=== PATIENT | female | born 1985 | race Caucasian/White ===

== ENCOUNTER 2018-05-06 12:01 | Inpatient (IN) | payer OTHER ==
[2018-05-06 12:12] VITALS: BMI 22.0
--- NOTE | 2018-05-06 13:35 | HP ---
COWS - Scale Resting Pulse: 0= [place] 80 or Below Sweatin=Flushed/Facial Moisture Restless Observation: 1= Difficult to Sit Still Pupil Size: 0= Normal to Room Light Bone or Joint Aches: 2= Severe Diffuse Aches Runny Nose/ Eye Tearin= Runny Nose/Eyes GI Upset > 30mins: 2= Nausea/Diarrhea Tremor Observation: 2= Slight Tremor Visible Yawning Observation: 2= >3x During Session Anxiety or Irritability: 2=Irritable/Anxious Goose Flesh Skin: 3=Piloerection COWS Score: 18 CIWA Score - Admission Criteria OASAS Guidelines: Admission for Medically Managed Detox: Requires at least one of the followin. CIWA greater than 12 2. Seizures within the past 24 hours 3. Delirium tremens within the past 24 hours 4. Hallucinations within the past 24 hours 5. Acute intervention needed for co occurring medical disorder 6. Acute intervention needed for co occurring psychiatric disorder 7. Severe withdrawal that cannot be handled at a lower level of care (continued vomiting, continued diarrhea, abnormal vital signs) requiring intravenous medication and/or fluids 8. Admission ROS [facility] Chief Complaint: I want to stop doing heroin. Allergies/Adverse Reactions: Allergies Allergy/AdvReac Type Severity Reaction Status Date / Time levofloxacin [From Levaquin] Allergy Verified 05/06/18 12:53 fish Allergy Uncoded 05/06/18 12:54 History of Present Illness: pt is a 32yr old female with a history of heroin dependence seeking detox for treatment. Pt had 2yr [id number] years of sobriety and then relapsed due of . Exam Limitations: No Limitations - Ebola screening Have you traveled outside of the country in the last 21 days: No Have you had contact with anyone from an Ebola affected area: No Have you been sick,other than usual withdrawal symptoms: No Do you have a fever: No - Review of Systems Constitutional: Chills, Diaphoresis, Night Sweats, Changes in sleep, Unintentional Wgt. Loss EENT: reports: Nose Congestion Respiratory: reports: No Symptoms reported Cardiac: reports: No Symptoms Reported GI: reports: Diarrhea, Nausea, Poor Appetite, Poor Fluid Intake, Abdominal cramping : reports: No Symptoms Reported Musculoskeletal: reports: Back Pain, Joint Pain, Muscle Pain Integumentary: reports: Flushing, Sweating, Other (abscess to right forearm noted) Neuro: reports: Headache, Tingling, Tremors, Dizziness Endocrine: reports: Excessive Sweating, Flushing, Intolerance to Cold, Intolerance to Heat Hematology: reports: No Symptoms Reported Psychiatric: reports: Judgement Intact, Mood/Affect Appropiate, Orientated x3, Agitated, Anxious Other Systems: Reviewed and Negative Patient History - Patient Medical History Hx Anemia: No Hx Asthma: Yes Hx Chronic Obstructive Pulmonary Disease (COPD): No Hx Cancer: No Hx Cardiac Disorders: No Hx Congestive Heart Failure: No Hx Hypertension: No Hx Hypercholesterolemia: No Hx Pacemaker: No HX Cerebrovascular Accident: No Hx Seizures: No Hx Dementia: No Hx Diabetes: No Hx Gastrointestinal Disorders: No Hx Liver Disease: No Hx Genitourinary Disorders: No Hx Sexually Transmitted Disorders: No Hx Renal Disease (ESRD): No Hx Thyroid Disease: No Hx Human Immunodeficiency Virus (HIV): No (negative) Hx Hepatitis C: Yes (no treatment) Hx Depression: Yes (not on medication ) Hx Suicide Attempt: No (denies) Hx Bipolar Disorder: No Hx Schizophrenia: No - Patient Surgical History Past Surgical History: No Hx Neurologic Surgery: No Hx Cataract Extraction: No Hx Cardiac Surgery: No Hx Lung Surgery: No Hx Breast Surgery: No Hx Breast Biopsy: No Hx Abdominal Surgery: No Hx Appendectomy: No Hx Cholecystectomy: No Hx Genitourinary Surgery: No Hx Section: No Hx Orthopedic Surgery: No Other Surgical History: 4 C section, mrsa 2012, right lung sx,- thoracotomy 2009 Anesthesia Reaction: No - PPD History Previous Implant?: Yes Documented Results: Negative w/o proof Implanted On Prior [facility] Admission?: No PPD to be Administered?: Yes - Reproductive History Patient is a Female of Child Bearing Age (11 -55 yrs old): Yes Patient : No - Smoking Cessation Smoking history: Current every day smoker Have you smoked in the past 12 months: Yes Aproximately how many cigarettes per day: 20 Hx Chewing Tobacco Use: No Initiated information on smoking cessation: Yes 'Breaking Loose' booklet given: 05/06/18 - Substance & Tx. History Hx Alcohol Use: No Hx Substance Use: Yes Substance Use Type: Cocaine, Heroin Hx Substance Use Treatment: Yes (last detox 1yr ago while in retirement) - Substances Abused Heroin Route: Injection Frequency: Daily Amount used: 5 bundles $450. Age of first use: 23 Date of Last Use: 05/05/18 Cocaine Route: Smoking Frequency: Daily Amount used: 1 gram $80. Age of first use: 23 Date of Last Use: 05/05/18 Family Disease History - Family Disease History Family Disease History: CA: Father, Mother Admission Physical Exam [facility] - Vital Signs Vital Signs: Vital Signs - 24 hr 05/06/18 12:10 Temperature 97.1 F L Pulse Rate 64 Respiratory 16 Rate Blood Pressure 78/46 L - Physical General Appearance: Yes: Appropriately Dressed, Moderate Distress, Tremorous, Irritable, Sweating, Anxious HEENTM: Yes: Hearing grossly Normal, Normal Voice, Nasal Congestion, Rhinorrhea Respiratory: Yes: Lungs Clear, Normal Breath Sounds, No Respiratory Distress Neck: Yes: No masses,lesions,Nodules Breast: Yes: Within Normal Limits Cardiology: Yes: Regular Rhythm, Regular Rate, S1, S2 Abdominal: Yes: Normal Bowel Sounds, Non Tender, Soft Genitourinary: Yes: Within Normal Limits Back: Yes: Normal Inspection Musculoskeletal: Yes: full range of Motion, Back pain Extremities: Yes: Normal Capillary Refill, Normal Inspection, Tremors Neurological: Yes: Fully Oriented, Alert, Normal Response Integumentary: Yes: Diaphoresis, Track Benson Lymphatic: Yes: Within Normal Limits - Diagnostic (1) Opioid dependence with withdrawal Current Visit: Yes Status: Chronic (2) Nicotine dependence Current Visit: Yes Status: Chronic Qualifiers: Nicotine product type: cigarettes Substance use status: uncomplicated Qualified Code(s): F17.210 - Nicotine dependence, cigarettes, uncomplicated (3) Abscess of right arm Current Visit: Yes Status: Acute (4) Cocaine dependence Current Visit: Yes Status: Chronic Qualifiers: Substance use status: uncomplicated Qualified Code(s): F14.20 - Cocaine dependence, uncomplicated Cleared for Admission [facility] - Detox or Rehab [facility] Level of Care: Medically Managed Detox Regimen/Protocol: Methadone [facility] Breath Alcohol Content Breath Alcohol Content: 0 Urine Pregancy Test - Result Urine Test Results: Negative- NO Line Present Urine Drug Screen - Results Drug Screen Negative: No Urine Drug Screen Results: PRESTON-Cocaine, OPI-Opiates, FEN-Fentanyl
[2018-05-06] MEDS ORDERED: MAGNESIUM HYDROX 2400MG/30ML ORAL SUSPENSION 30 ML CUP PO PRN (13:42)
[2018-05-06] MEDS ORDERED: ACETAMINOPHEN 325 MG TABLET (FP) PO PRN (13:42)
[2018-05-06] MEDS ORDERED: MAGNESIUM CITRATE 300 ML BOTTLE PO PRN (13:42)
[2018-05-06] MEDS ORDERED: guaiFENesin/D-METHORPHAN HB 10 ML UNIT-DOSE CUPS PO PRN (13:42)
[2018-05-06] MEDS ORDERED: MAG HYDROX/AL HYDROX/SIMETH 30 ML UNIT-DOSE CUP PO PRN (13:42)
[2018-05-06] MEDS ORDERED: P-EPHED 60MG/TRIPROLIDI 2.5MG TABLET PO PRN (13:42)
[2018-05-06] MEDS ORDERED: LOPERAMIDE HCL 2 MG CAPSULE PO PRN (13:42)
[2018-05-06] MEDS ORDERED: MENTHOL/PHENOL 1 EACH UD MM PRN (13:42)
[2018-05-06] MEDS ORDERED: METHADONE HCL 10 MG TABLET (FOR DETOX USE ONLY) PO ONE ×2 (14:30→23:00)
[2018-05-06] MEDS: diazePAM 5 MG TABLET PO PRN (15:08)
--- NOTE | 2018-05-06 17:32 | EKG ---
Test Reason : Blood Pressure : / mmHG Vent. Rate : 054 BPM Atrial Rate : 054 BPM P-R Int : 168 ms QRS Dur : 082 ms QT Int : 444 ms P-R-T Axes : 067 036 019 degrees QTc Int : 421 ms SINUS BRADYCARDIA OTHERWISE NORMAL ECG NO PREVIOUS ECGS AVAILABLE Confirmed by MEGHAN MARCH MD ([id number]) on 05/06/2018 5:31:41 PM Referred By: Confirmed By:MEGHAN MARCH MD
[2018-05-06] MEDS: IBUPROFEN 400 MG TABLET (FP) PO PRN (20:07)
[2018-05-06] MEDS: SULFAMETHOXAZOLE/TRIMETHOPRIM 800MG/160MG D.S. TABLET PO SCH (22:17)
[2018-05-06] MEDS: hydrOXYzine PAMOATE 50 MG CAPSULE (FP) PO PRN (22:17)
[2018-05-06] MEDS: THIAMINE HCL 100 MG TABLET (FP) PO SCH (22:17)
[2018-05-07] MEDS: IBUPROFEN 400 MG TABLET (FP) PO PRN (09:26)
[2018-05-07] MEDS ORDERED: METHADONE HCL 10 MG TABLET (FOR DETOX USE ONLY) PO ONE (10:00)
[2018-05-07] MEDS: diazePAM 5 MG TABLET PO PRN (10:12)
[2018-05-07] MEDS: SULFAMETHOXAZOLE/TRIMETHOPRIM 800MG/160MG D.S. TABLET PO SCH ×2 (10:12→22:30)
[2018-05-07] MEDS: PRENATAL VITAMINS W/ FOLIC ACID TABLET (FP) PO SCH (10:12)
[2018-05-07] MEDS: NICOTINE 21 MG/24 HOURS TOPICAL PATCH TD SCH (10:15)
[2018-05-07 10:18] LABS: HEMATOCRIT 36.3 % (32.4-45.2); HEMOGLOBIN 12.3 GM/dL (10.7-15.3); MCH 28.2 pg (25.7-33.7); MCHC 33.8 g/dl (32.0-36.0); MEAN CELL VOLUME 83.5 fl (80-96); MEAN PLT VOLUME 7.5 fl (7.5-11.1); PLATELET COUNT 235 K/MM3 (134-434); RBC 4.35 M/mm3 (3.60-5.2); RDW 14.7 % (11.6-15.6); WHITE BLOOD COUNT 5.4 K/mm3 (4.0-10.0)
[2018-05-07 10:49] LABS: ALBUMIN 3.1 g/dl (3.4-5.0); ALK PHOS 56 U/L (45-117); ANION GAP 5 MMOL/L (8-16); BILIRUBIN,TOTAL 0.2 mg/dL (0.2-1); BLOOD UREA NITROGEN 20 mg/dL (7-18); CALCIUM 8.8 mg/dL (8.5-10.1); CHLORIDE 106 mmol/L (98-107); CO2 27 mmol/L (21-32); GLUCOSE,RANDOM 98 mg/dL (74-106); POTASSIUM 4.4 mmol/L (3.5-5.1); SGOT/AST 12 U/L (15-37); SGPT/ALT 16 U/L (13-61); SODIUM 139 mmol/L (136-145); TOT PROT 6.8 g/dl (6.4-8.2)
[2018-05-07] MEDS ORDERED: BACLOFEN 10 MG TABLET (FP) PO ONE (11:30)
[2018-05-07] MEDS ORDERED: ALBUTEROL SO4 2.5/IPRATROPIUM 0.5 INH SOL 3 ML VIAL.NEB. NEB ONE (11:32)
[2018-05-07] MEDS ORDERED: metroNIDAZOLE 250 MG TABLET PO ONE (11:39)
[2018-05-07] MEDS ORDERED: LIDOCAINE 5% TOPICAL PATCH TP ONE (11:43)
--- NOTE | 2018-05-07 11:46 | PN ---
BHS COWS - Scale Resting Pulse: 0= [place] 80 or Below Sweatin=Flushed/Facial Moisture Restless Observation: 1= Difficult to Sit Still Pupil Size: 0= Normal to Room Light Bone or Joint Aches: 2= Severe Diffuse Aches Runny Nose/ Eye Tearin= Runny Nose/Eyes GI Upset > 30mins: 1= Stomach Cramp Tremor Observation of Outstretched Hands: 2= Slight Tremor Visible Yawning Observation: 2= >3x During Session Anxiety or Irritability: 2=Irritable/Anxious Goose Flesh Skin: 3=Piloerection COWS Score: 17 BHS Progress Note (SOAP) Subjective: insomnia sweats shakes body aches restless legs I have foul fishy vaginal odor low back pain chest congestion with cough Objective: 05/07/18 11:44 Vital Signs Temperature 97.7 F 05/07/18 09:25 Pulse Rate 69 05/07/18 09:25 Respiratory Rate 18 05/07/18 09:25 Blood Pressure 100/51 L 05/07/18 09:25 O2 Sat by Pulse Oximetry (%) Laboratory Tests 05/07/18 05/07/18 07:00 07:00 WBC 5.4 RBC 4.35 Hgb 12.3 Hct 36.3 MCV 83.5 MCH 28.2 MCHC 33.8 RDW 14.7 Plt Count 235 MPV 7.5 Sodium 139 Potassium 4.4 Chloride 106 Carbon Dioxide 27 Anion Gap 5 L BUN 20 H Creatinine 1.0 Creat Clearance w eGFR > 60 Random Glucose 98 Calcium 8.8 Total Bilirubin 0.2 AST 12 L ALT 16 Alkaline Phosphatase 56 Total Protein 6.8 Albumin 3.1 L aaox3 ambulating no acute distress Assessment: 05/07/18 11:44 withdrawal sx Plan: continue detox increase fluids lidocaine patch motrin/tylenol prn baclofen tid duoneb prn flagyl 500mg bid x 7 days for BV
[2018-05-07] MEDS: BACITRACIN 0.9 GM PACKET TP SCH ×2 (12:19→22:30)
[2018-05-07] MEDS: BACLOFEN 10 MG TABLET (FP) PO SCH ×2 (15:11→22:30)
[2018-05-07] MEDS: THIAMINE HCL 100 MG TABLET (FP) PO SCH (22:30)
[2018-05-07] MEDS: metroNIDAZOLE 250 MG TABLET PO SCH (22:30)
[2018-05-07] MEDS: MELATONIN 5 MG TABLETS PO PRN (22:31)
[2018-05-07] MEDS: LIDOCAINE PATCH REMOVAL MC SCH (22:31)
[2018-05-07] MEDS: NICOTINE POLACRILEX 4 MG GUM BUC PRN (22:35)
[2018-05-08] MEDS: BACLOFEN 10 MG TABLET (FP) PO SCH ×3 (05:49→22:20)
[2018-05-08] MEDS: IBUPROFEN 400 MG TABLET (FP) PO PRN ×2 (05:49→19:07)
[2018-05-08] MEDS ORDERED: METHADONE HCL 5 MG TABLET (FOR DETOX USE ONLY) PO ONE (10:00)
[2018-05-08] MEDS: BACITRACIN 0.9 GM PACKET TP SCH ×2 (11:01→22:20)
[2018-05-08] MEDS: metroNIDAZOLE 250 MG TABLET PO SCH ×2 (11:02→22:20)
[2018-05-08] MEDS: PRENATAL VITAMINS W/ FOLIC ACID TABLET (FP) PO SCH (11:02)
[2018-05-08] MEDS: LIDOCAINE 5% TOPICAL PATCH TP SCH (11:03)
[2018-05-08] MEDS: SULFAMETHOXAZOLE/TRIMETHOPRIM 800MG/160MG D.S. TABLET PO SCH ×2 (11:05→22:20)
[2018-05-08] MEDS: NICOTINE 21 MG/24 HOURS TOPICAL PATCH TD SCH (11:06)
[2018-05-08] MEDS: diazePAM 5 MG TABLET PO PRN ×2 (11:07→22:21)
--- NOTE | 2018-05-08 11:22 | PN ---
BHS COWS - Scale Resting Pulse: 0= [place] 80 or Below Sweatin=Flushed/Facial Moisture Restless Observation: 1= Difficult to Sit Still Pupil Size: 0= Normal to Room Light Bone or Joint Aches: 2= Severe Diffuse Aches Runny Nose/ Eye Tearin= Runny Nose/Eyes GI Upset > 30mins: 0= None Tremor Observation of Outstretched Hands: 2= Slight Tremor Visible Yawning Observation: 2= >3x During Session Anxiety or Irritability: 2=Irritable/Anxious Goose Flesh Skin: 0=Smooth Skin COWS Score: 13 BHS Progress Note (SOAP) Subjective: chest congestion sweats body aches interrupted sleep Objective: 05/08/18 11:21 Vital Signs Temperature 97.5 F L 05/08/18 09:40 Pulse Rate 78 05/08/18 09:40 Respiratory Rate 16 05/08/18 09:40 Blood Pressure 106/63 05/08/18 09:40 O2 Sat by Pulse Oximetry (%) Laboratory Tests 05/07/18 05/07/18 05/07/18 07:00 07:00 07:00 WBC 5.4 RBC 4.35 Hgb 12.3 Hct 36.3 MCV 83.5 MCH 28.2 MCHC 33.8 RDW 14.7 Plt Count 235 MPV 7.5 Sodium 139 Potassium 4.4 Chloride 106 Carbon Dioxide 27 Anion Gap 5 L BUN 20 H Creatinine 1.0 Creat Clearance w eGFR > 60 Random Glucose 98 Calcium 8.8 Total Bilirubin 0.2 AST 12 L ALT 16 Alkaline Phosphatase 56 Total Protein 6.8 Albumin 3.1 L HIV 1&2 Antibody Screen Negative HIV P24 Antigen Negative aaox3 ambulating no acute distress chest x-ray ordered r/o pna Assessment: 05/08/18 11:22 withdrawal sx Plan: continue detox increase fluids f/u chest x-ray result
[2018-05-08] MEDS: hydrOXYzine PAMOATE 50 MG CAPSULE (FP) PO PRN ×2 (13:22→19:07)
[2018-05-08] MEDS: ALBUTEROL SO4 8 GM HFA INHALER IH PRN (15:35)
[2018-05-08] MEDS: ALBUTEROL SO4 2.5/IPRATROPIUM 0.5 INH SOL 3 ML VIAL.NEB. NEB PRN (20:56)
[2018-05-08] MEDS: THIAMINE HCL 100 MG TABLET (FP) PO SCH (22:21)
[2018-05-08] MEDS: LIDOCAINE PATCH REMOVAL MC SCH (22:23)
[2018-05-08] MEDS: NICOTINE POLACRILEX 4 MG GUM BUC PRN (22:23)
[2018-05-09] MEDS: BACLOFEN 10 MG TABLET (FP) PO SCH ×3 (06:08→23:12)
[2018-05-09] MEDS: diazePAM 5 MG TABLET PO PRN ×2 (06:09→10:29)
[2018-05-09] MEDS: IBUPROFEN 400 MG TABLET (FP) PO PRN ×2 (06:10→12:57)
[2018-05-09] MEDS: NICOTINE POLACRILEX 4 MG GUM BUC PRN ×2 (06:14→10:36)
[2018-05-09] MEDS: ALBUTEROL SO4 8 GM HFA INHALER IH PRN (06:14)
[2018-05-09] MEDS ORDERED: METHADONE HCL 5 MG TABLET (FOR DETOX USE ONLY) PO ONE (10:00)
[2018-05-09] MEDS: BACITRACIN 0.9 GM PACKET TP SCH ×2 (10:29→23:11)
[2018-05-09] MEDS: SULFAMETHOXAZOLE/TRIMETHOPRIM 800MG/160MG D.S. TABLET PO SCH ×2 (10:29→23:12)
[2018-05-09] MEDS: PRENATAL VITAMINS W/ FOLIC ACID TABLET (FP) PO SCH (10:29)
[2018-05-09] MEDS: metroNIDAZOLE 250 MG TABLET PO SCH ×2 (10:29→23:12)
[2018-05-09] MEDS: BUDESONIDE/FORMETEROL FUMARATE 80/4.5 mcg INHALER IH SCH ×2 (10:30→23:12)
[2018-05-09] MEDS: NICOTINE 21 MG/24 HOURS TOPICAL PATCH TD SCH (10:31)
[2018-05-09] MEDS: LIDOCAINE 5% TOPICAL PATCH TP SCH (10:31)
[2018-05-09] MEDS ORDERED: LIDOCAINE VISCOUS 2% ORAL/TOP 20 ML UNIT-DOSE CUP MM PRN (11:29)
--- NOTE | 2018-05-09 12:35 | PN ---
BHS Progress Note (SOAP) Subjective: tooth ache sweats shortness of breath at times interrupted sleep Objective: 05/09/18 12:32 Vital Signs Temperature 98.2 F 05/09/18 10:30 Pulse Rate 92 H 05/09/18 10:30 Respiratory Rate 18 05/09/18 10:30 Blood Pressure 108/66 05/09/18 10:30 O2 Sat by Pulse Oximetry (%) Laboratory Tests 05/07/18 05/07/18 05/07/18 07:00 07:00 07:00 WBC 5.4 RBC 4.35 Hgb 12.3 Hct 36.3 MCV 83.5 MCH 28.2 MCHC 33.8 RDW 14.7 Plt Count 235 MPV 7.5 Sodium 139 Potassium 4.4 Chloride 106 Carbon Dioxide 27 Anion Gap 5 L BUN 20 H Creatinine 1.0 Creat Clearance w eGFR > 60 Random Glucose 98 Calcium 8.8 Total Bilirubin 0.2 AST 12 L ALT 16 Alkaline Phosphatase 56 Total Protein 6.8 Albumin 3.1 L RPR Titer HIV 1&2 Antibody Screen Negative HIV P24 Antigen Negative 05/07/18 07:00 WBC RBC Hgb Hct MCV MCH MCHC RDW Plt Count MPV Sodium Potassium Chloride Carbon Dioxide Anion Gap BUN Creatinine Creat Clearance w eGFR Random Glucose Calcium Total Bilirubin AST ALT Alkaline Phosphatase Total Protein Albumin RPR Titer Nonreactive HIV 1&2 Antibody Screen HIV P24 Antigen aaox3 ambulating no acute distress Assessment: 05/09/18 12:34 withdrawals sx Plan: continue detox increase fluids lidocaine s/s
[2018-05-09] MEDS: ALBUTEROL SO4 2.5/IPRATROPIUM 0.5 INH SOL 3 ML VIAL.NEB. NEB PRN ×2 (13:33→18:04)
[2018-05-09] MEDS: hydrOXYzine PAMOATE 50 MG CAPSULE (FP) PO PRN (18:14)
[2018-05-09] MEDS: LIDOCAINE PATCH REMOVAL MC SCH (23:12)
[2018-05-09] MEDS: THIAMINE HCL 100 MG TABLET (FP) PO SCH (23:13)
[2018-05-09] MEDS: MELATONIN 5 MG TABLETS PO PRN (23:37)
[2018-05-10] MEDS: IBUPROFEN 400 MG TABLET (FP) PO PRN ×3 (02:56→20:21)
[2018-05-10] MEDS: hydrOXYzine PAMOATE 50 MG CAPSULE (FP) PO PRN (03:08)
[2018-05-10] MEDS: BACLOFEN 10 MG TABLET (FP) PO SCH ×3 (07:34→22:29)
[2018-05-10] MEDS ORDERED: BENZOCAINE 20 % GEL TUBE MM PRN (09:05)
[2018-05-10] MEDS ORDERED: METHADONE HCL 10 MG TABLET (FOR DETOX USE ONLY) PO ONE (10:00)
[2018-05-10] MEDS: metroNIDAZOLE 250 MG TABLET PO SCH ×2 (10:27→22:29)
[2018-05-10] MEDS: PRENATAL VITAMINS W/ FOLIC ACID TABLET (FP) PO SCH (10:27)
[2018-05-10] MEDS: BACITRACIN 0.9 GM PACKET TP SCH ×2 (10:27→22:28)
[2018-05-10] MEDS: SULFAMETHOXAZOLE/TRIMETHOPRIM 800MG/160MG D.S. TABLET PO SCH ×2 (10:27→22:28)
[2018-05-10] MEDS: NICOTINE 21 MG/24 HOURS TOPICAL PATCH TD SCH (10:28)
[2018-05-10] MEDS: LIDOCAINE 5% TOPICAL PATCH TP SCH (10:28)
[2018-05-10] MEDS: BUDESONIDE/FORMETEROL FUMARATE 80/4.5 mcg INHALER IH SCH ×2 (10:28→22:30)
[2018-05-10] MEDS: NICOTINE POLACRILEX 4 MG GUM BUC PRN ×2 (10:32→22:33)
[2018-05-10] MEDS: FLUTICASONE PROP 0.05% 16 GM NASAL SPRAY NS SCH (11:00)
[2018-05-10] MEDS: ALBUTEROL SO4 2.5/IPRATROPIUM 0.5 INH SOL 3 ML VIAL.NEB. NEB PRN ×2 (11:20→18:12)
--- NOTE | 2018-05-10 12:13 | PN ---
S Progress Note (SOAP) Subjective: toothache feeling better sweats anxiety interrupted sleep Objective: 05/10/18 12:11 Vital Signs Temperature 97.9 F 05/10/18 09:27 Pulse Rate 69 05/10/18 09:27 Respiratory Rate 18 05/10/18 09:27 Blood Pressure 116/70 05/10/18 09:27 O2 Sat by Pulse Oximetry (%) aaox3 ambulating no acute distress Assessment: 05/10/18 12:12 mild withdrawals Plan: valium 5mg x one day ordered trazadone 50mg qhs anbesol increase fluids d/c in am
[2018-05-10] MEDS: diazePAM 5 MG TABLET PO PRN ×2 (13:48→22:31)
[2018-05-10] MEDS ORDERED: LIDOCAINE VISCOUS 2% ORAL/TOP 20 ML UNIT-DOSE CUP MM PRN (15:30)
[2018-05-10] MEDS: ALBUTEROL SO4 8 GM HFA INHALER IH PRN (17:13)
[2018-05-10] MEDS ORDERED: traZODone HCL 50 MG TABLET (FP) PO SCH (22:00)
[2018-05-10] MEDS: LIDOCAINE PATCH REMOVAL MC SCH (22:29)
[2018-05-10] MEDS: THIAMINE HCL 100 MG TABLET (FP) PO SCH (22:31)
[2018-05-11] MEDS: BACLOFEN 10 MG TABLET (FP) PO SCH (05:32)
[2018-05-11] MEDS: IBUPROFEN 400 MG TABLET (FP) PO PRN ×2 (05:33→10:41)
[2018-05-11] MEDS ORDERED: METHADONE HCL 5 MG TABLET (FOR DETOX USE ONLY) PO ONE (06:00)
[2018-05-11 10:34] VITALS: BP 106/64; PULSE 82; TEMP 97.9
[2018-05-11] MEDS: NICOTINE 21 MG/24 HOURS TOPICAL PATCH TD SCH (10:40)
[2018-05-11] MEDS: metroNIDAZOLE 250 MG TABLET PO SCH (10:41)
[2018-05-11] MEDS: LIDOCAINE 5% TOPICAL PATCH TP SCH (10:42)
[2018-05-11] MEDS: PRENATAL VITAMINS W/ FOLIC ACID TABLET (FP) PO SCH (10:42)
[2018-05-11] MEDS: SULFAMETHOXAZOLE/TRIMETHOPRIM 800MG/160MG D.S. TABLET PO SCH (10:42)
[2018-05-11] MEDS: BUDESONIDE/FORMETEROL FUMARATE 80/4.5 mcg INHALER IH SCH (10:42)
[2018-05-11] MEDS: BACITRACIN 0.9 GM PACKET TP SCH (10:42)
[2018-05-11] MEDS: FLUTICASONE PROP 0.05% 16 GM NASAL SPRAY NS SCH (11:36)
--- NOTE | 2018-05-11 17:31 | PN ---
S Progress Note (SOAP) Subjective: no complaints offered Objective: 05/11/18 17:29 A & O x 3 ambulating comfortably on unit Vital Signs Temperature 97.9 F 05/11/18 10:34 Pulse Rate 82 05/11/18 10:34 Respiratory Rate 16 05/11/18 10:34 Blood Pressure 106/64 05/11/18 10:34 O2 Sat by Pulse Oximetry (%) Assessment: 05/11/18 17:30 Detox successfully completed Plan: for d/c
--- NOTE | 2018-05-11 17:32 | DS ---
[facility] Detox Discharge Summary Admission Date: 05/06/18 Discharge Date: 05/11/18 - History Additional Comments: pt d/c s/p successful completion of detox Pt to do aftercare at [facility] Rehab - Physical Exam Results Vital Signs: Vital Signs Temperature 97.9 F 05/11/18 10:34 Pulse Rate 82 05/11/18 10:34 Respiratory Rate 16 05/11/18 10:34 Blood Pressure 106/64 05/11/18 10:34 O2 Sat by Pulse Oximetry (%) Pertinent Admission Physical Exam Findings: withdrawal sx - Treatment Hospital Course: Detox Protocol Followed, Detoxed Safely, Responded well, Discharged Condition Good, Rehab Referral Accepted Patient has Accepted a Rehab Referral to: [facility] rehab - Medication Discharge Medications: Ambulatory Orders Albuterol 2.5/Ipratropium 0.5 [Duoneb -] 1 neb NEB Q4H PRN 05/11/18 Albuterol Sulfate Inhaler - [Ventolin Hfa Inhaler -] 1 - 2 inh PO Q4H PRN Bacitracin - [Bacitracin Topical Ointment -] 1 applic TP BID 05/11/18 Baclofen 10 mg PO TID 05/11/18 Budesonide/Formeterol Fumarate [SYMBICORT 80/4.5mcg -] 2 inh PO BID 05/11/18 Fluticasone Prop 0.05% Nasal [Flonase -] 2 spray NS DAILY 05/11/18 Ibuprofen [Motrin -] 800 mg PO TID PRN 05/11/18 Lidocaine 1 each TP DAILY 05/11/18 Lidocaine 2% Viscous Oral/Top [Xylocaine 2% Viscous] 15 ml MM Q6H PRN 05/11/18 Sulfamethoxazole/Trimethoprim [Bactrim Ds -] 1 tab PO BID 05/11/18 metroNIDAZOLE [Flagyl -] 500 mg PO BID 05/11/18 traZODone HCL [Desyrel -] 50 mg PO HS 05/11/18 - AMA Did Patient Leave Against Medical Advice: No
== END 2018-05-11 11:35 | disposition other institution (70) | DRG 773 ==
LOC: YASAS 12:01 → Y6N 14:06
PROVIDERS: ADMIT Neuromusculoskeletal Medicine & OMM; ATTEND Neuromusculoskeletal Medicine & OMM
PROC: HZ2ZZZZ Detoxification Services for Substance Abuse Treatment (ICD-10-PCS; principal; 2018-05-06)
DX: F11.23 Opioid dependence with withdrawal (principal); F14.20 Cocaine dependence, uncomplicated; F17.210 Nicotine dependence, cigarettes, uncomplicated; F32.9 Major depressive disorder, single episode, unspecified; L02.413 Cutaneous abscess of right upper limb; B18.2 Chronic viral hepatitis C; K08.89 Other specified disorders of teeth and supporting structures; Z88.1 Allergy status to other antibiotic agents; Z91.013 Allergy to seafood
CPT/HCPCS: 36415; 71046-TC-FY; 80053; 85027; 86593; 87389; 93005; 93010; 94640; J0475

== ENCOUNTER 2018-05-11 11:44 | Inpatient (IN) | payer OTHER ==
[2018-05-11 12:13] VITALS: BMI 23.7
[2018-05-11] MEDS ORDERED: MAGNESIUM HYDROX 2400MG/30ML ORAL SUSPENSION 30 ML CUP PO PRN (14:47)
[2018-05-11] MEDS ORDERED: IBUPROFEN 400 MG TABLET (FP) PO PRN (14:47)
[2018-05-11] MEDS ORDERED: MENTHOL/PHENOL 1 EACH UD MM PRN (14:47)
[2018-05-11] MEDS ORDERED: guaiFENesin/D-METHORPHAN HB 10 ML UNIT-DOSE CUPS PO PRN (14:47)
[2018-05-11] MEDS ORDERED: LOPERAMIDE HCL 2 MG CAPSULE PO PRN (14:47)
[2018-05-11] MEDS ORDERED: ACETAMINOPHEN 325 MG TABLET (FP) PO PRN (14:47)
[2018-05-11] MEDS ORDERED: MAG HYDROX/AL HYDROX/SIMETH 30 ML UNIT-DOSE CUP PO PRN (14:47)
[2018-05-11] MEDS ORDERED: MAGNESIUM CITRATE 300 ML BOTTLE PO PRN (14:47)
[2018-05-11] MEDS ORDERED: P-EPHED 60MG/TRIPROLIDI 2.5MG TABLET PO PRN (14:47)
[2018-05-11] MEDS ORDERED: NICOTINE POLACRILEX 4 MG GUM BUC PRN (14:47)
--- NOTE | 2018-05-11 14:47 | HP ---
[facility] Rehab Assess/Revision - Admission History Admitted to Rehab from: [facility] - Vital signs Vital Signs: Vital Signs Period Temp Pulse Resp BP Sys/[place] Pulse Ox Last 24 Hr 97.9 F-97.9 F 81-81 18-18 98-98/61-61 - Findings Detox History & Physical reviewed: Yes Concur with findings: Yes Inpatient Rehab Admission - Rehab Decision to Admit Inpatient rehab admission?: Yes - Initial Determination Are CD services needed?: Yes Free of communicable disease: Yes Not in need of hospitalization: Yes - Rehab Admission Criteria Previous failed treatment: Yes Poor recovery environment: Yes Comorbidities: Yes Lacks judgement: No Patient is meeting Inpatient Rehab admission criteria:: Yes (pt completed detox and is now transferred to rehab)
[2018-05-11] MEDS ORDERED: ALBUTEROL SO4 8 GM HFA INHALER IH PRN (14:48)
[2018-05-11] MEDS ORDERED: LIDOCAINE VISCOUS 2% ORAL/TOP 100 ML BOTTLE MM PRN (14:55)
[2018-05-11] MEDS ORDERED: LIDOCAINE VISCOUS 2% ORAL/TOP 20 ML UNIT-DOSE CUP MM PRN (15:20)
[2018-05-11] MEDS: NICOTINE 21 MG/24 HOURS TOPICAL PATCH TD SCH (15:49)
[2018-05-11] MEDS: LIDOCAINE 5% TOPICAL PATCH TP SCH (15:49)
[2018-05-11] MEDS: ALBUTEROL SO4 2.5/IPRATROPIUM 0.5 INH SOL 3 ML VIAL.NEB. NEB PRN (18:27)
[2018-05-11] MEDS: BUDESONIDE/FORMETEROL FUMARATE 80/4.5 mcg INHALER IH SCH (21:03)
[2018-05-11] MEDS: metroNIDAZOLE 250 MG TABLET PO SCH (21:04)
[2018-05-11] MEDS: SULFAMETHOXAZOLE/TRIMETHOPRIM 800MG/160MG D.S. TABLET PO SCH (21:04)
[2018-05-11] MEDS: THIAMINE HCL 100 MG TABLET (FP) PO SCH (21:04)
[2018-05-11] MEDS: traZODone HCL 50 MG TABLET (FP) PO SCH (21:04)
[2018-05-11] MEDS: BACLOFEN 10 MG TABLET (FP) PO SCH (21:04)
[2018-05-11] MEDS: BACITRACIN 0.9 GM PACKET TP SCH (21:05)
[2018-05-11] MEDS: hydrOXYzine PAMOATE 50 MG CAPSULE (FP) PO PRN (21:06)
[2018-05-11] MEDS ORDERED: PATIENT'S OWN MEDICATION (NON-FORMULARY) (Baclofen [Baclofen] 10 MG) PO SCH (22:00)
[2018-05-11] MEDS ORDERED: MELATONIN 5 MG TABLETS PO PRN (22:00)
[2018-05-11] MEDS ORDERED: PATIENT'S OWN MEDICATION (NON-FORMULARY) (Metronidazole [Flagyl -] 500 MG) PO SCH (22:00)
[2018-05-12] MEDS ORDERED: PT OWN MED DRAWER 7, Y5N ONE ×4 (03:38→21:47)
[2018-05-12] MEDS: BACLOFEN 10 MG TABLET (FP) PO SCH ×3 (07:37→21:24)
[2018-05-12] MEDS: IBUPROFEN 400 MG TABLET (FP) PO PRN ×2 (09:50→21:24)
[2018-05-12] MEDS: PRENATAL VITAMINS W/ FOLIC ACID TABLET (FP) PO SCH (09:51)
[2018-05-12] MEDS: BUDESONIDE/FORMETEROL FUMARATE 80/4.5 mcg INHALER IH SCH ×2 (09:51→21:32)
[2018-05-12] MEDS: metroNIDAZOLE 250 MG TABLET PO SCH ×2 (09:51→21:22)
[2018-05-12] MEDS: BACITRACIN 0.9 GM PACKET TP SCH ×2 (09:51→21:32)
[2018-05-12] MEDS: SULFAMETHOXAZOLE/TRIMETHOPRIM 800MG/160MG D.S. TABLET PO SCH ×2 (09:51→21:22)
[2018-05-12] MEDS: LIDOCAINE 5% TOPICAL PATCH TP SCH (09:52)
[2018-05-12] MEDS: FLUTICASONE PROP 0.05% 16 GM NASAL SPRAY NS SCH (09:52)
[2018-05-12] MEDS: NICOTINE 21 MG/24 HOURS TOPICAL PATCH TD SCH (09:52)
[2018-05-12] MEDS: ALBUTEROL SO4 2.5/IPRATROPIUM 0.5 INH SOL 3 ML VIAL.NEB. NEB PRN (13:40)
[2018-05-12] MEDS: hydrOXYzine PAMOATE 50 MG CAPSULE (FP) PO PRN (21:22)
[2018-05-12] MEDS: THIAMINE HCL 100 MG TABLET (FP) PO SCH (21:23)
[2018-05-12] MEDS: traZODone HCL 50 MG TABLET (FP) PO SCH (21:23)
[2018-05-13] MEDS ORDERED: PT OWN MED DRAWER 7, Y5N ONE ×3 (03:13→21:12)
[2018-05-13] MEDS: BACLOFEN 10 MG TABLET (FP) PO SCH ×3 (07:50→21:17)
[2018-05-13 07:56] VITALS: TEMP 97.3
[2018-05-13] MEDS: IBUPROFEN 400 MG TABLET (FP) PO PRN ×2 (09:40→21:14)
[2018-05-13] MEDS: PRENATAL VITAMINS W/ FOLIC ACID TABLET (FP) PO SCH (09:40)
[2018-05-13] MEDS: metroNIDAZOLE 250 MG TABLET PO SCH ×2 (09:40→21:10)
[2018-05-13] MEDS: hydrOXYzine PAMOATE 50 MG CAPSULE (FP) PO PRN ×2 (09:40→14:02)
[2018-05-13] MEDS: LIDOCAINE 5% TOPICAL PATCH TP SCH (09:41)
[2018-05-13] MEDS: FLUTICASONE PROP 0.05% 16 GM NASAL SPRAY NS SCH (09:41)
[2018-05-13] MEDS: NICOTINE 21 MG/24 HOURS TOPICAL PATCH TD SCH (09:41)
[2018-05-13] MEDS: BUDESONIDE/FORMETEROL FUMARATE 80/4.5 mcg INHALER IH SCH ×2 (09:41→21:15)
[2018-05-13] MEDS: SULFAMETHOXAZOLE/TRIMETHOPRIM 800MG/160MG D.S. TABLET PO SCH ×2 (09:41→21:10)
[2018-05-13] MEDS: BACITRACIN 0.9 GM PACKET TP SCH ×2 (10:50→21:10)
[2018-05-13] MEDS: ALBUTEROL SO4 2.5/IPRATROPIUM 0.5 INH SOL 3 ML VIAL.NEB. NEB PRN ×2 (12:35→18:03)
--- NOTE | 2018-05-13 16:25 | PN ---
S Progress Note Note: PATIENT REQUESTED TO BE SEEN BY PSYCH DUE TO SADNESS AND DEPRESSED MOOD ANNIVERSARY OF 'S IS APPROACHING. NO SI/HI REPORTED. PSYCH CONSULT ORDERED.
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
[2018-05-13] MEDS: ESCITALOPRAM OXALATE 20 MG TABLET (FP) PO SCH (18:02)
[2018-05-13] MEDS: traZODone HCL 50 MG TABLET (FP) PO SCH (21:10)
[2018-05-13] MEDS: THIAMINE HCL 100 MG TABLET (FP) PO SCH (21:10)
[2018-05-13] MEDS: GABAPENTIN 300 MG CAPSULE (FP) PO SCH (21:13)
[2018-05-13] MEDS: MIRTAZAPINE 15 MG TABLET (FP) PO SCH (21:14)
[2018-05-13] MEDS: PRAZOSIN HCL 1 MG CAPSULE PO SCH (21:17)
[2018-05-14] MEDS ORDERED: PT OWN MED DRAWER 7, Y5N ONE ×4 (05:58→13:39)
[2018-05-14] MEDS: BACLOFEN 10 MG TABLET (FP) PO SCH ×3 (06:54→21:30)
[2018-05-14] MEDS: IBUPROFEN 400 MG TABLET (FP) PO PRN ×2 (06:56→21:30)
[2018-05-14 07:10] VITALS: BP 96/63; PULSE 73
[2018-05-14] MEDS: SULFAMETHOXAZOLE/TRIMETHOPRIM 800MG/160MG D.S. TABLET PO SCH ×2 (10:14→21:29)
[2018-05-14] MEDS: FLUTICASONE PROP 0.05% 16 GM NASAL SPRAY NS SCH (10:14)
[2018-05-14] MEDS: BACITRACIN 0.9 GM PACKET TP SCH ×2 (10:14→21:29)
[2018-05-14] MEDS: metroNIDAZOLE 250 MG TABLET PO SCH ×2 (10:14→21:30)
[2018-05-14] MEDS: LIDOCAINE 5% TOPICAL PATCH TP SCH (10:15)
[2018-05-14] MEDS: GABAPENTIN 300 MG CAPSULE (FP) PO SCH ×2 (10:15→21:30)
[2018-05-14] MEDS: ESCITALOPRAM OXALATE 20 MG TABLET (FP) PO SCH (10:15)
[2018-05-14] MEDS: NICOTINE 21 MG/24 HOURS TOPICAL PATCH TD SCH (10:16)
[2018-05-14] MEDS: PRENATAL VITAMINS W/ FOLIC ACID TABLET (FP) PO SCH (10:16)
[2018-05-14] MEDS: BUDESONIDE/FORMETEROL FUMARATE 80/4.5 mcg INHALER IH SCH ×2 (10:16→21:31)
[2018-05-14] MEDS: hydrOXYzine PAMOATE 50 MG CAPSULE (FP) PO PRN ×3 (10:17→21:33)
[2018-05-14] MEDS: MIRTAZAPINE 15 MG TABLET (FP) PO SCH (21:30)
[2018-05-14] MEDS: PRAZOSIN HCL 1 MG CAPSULE PO SCH (21:31)
[2018-05-14] MEDS: traZODone HCL 50 MG TABLET (FP) PO SCH (21:32)
[2018-05-14] MEDS: THIAMINE HCL 100 MG TABLET (FP) PO SCH (21:35)
[2018-05-15] MEDS: BACLOFEN 10 MG TABLET (FP) PO SCH ×2 (07:00→14:02)
[2018-05-15] MEDS: NICOTINE 21 MG/24 HOURS TOPICAL PATCH TD SCH (09:39)
[2018-05-15] MEDS: LIDOCAINE 5% TOPICAL PATCH TP SCH (09:39)
[2018-05-15] MEDS: GABAPENTIN 300 MG CAPSULE (FP) PO SCH (09:39)
[2018-05-15] MEDS: BACITRACIN 0.9 GM PACKET TP SCH (09:39)
[2018-05-15] MEDS: SULFAMETHOXAZOLE/TRIMETHOPRIM 800MG/160MG D.S. TABLET PO SCH (09:40)
[2018-05-15] MEDS: PRENATAL VITAMINS W/ FOLIC ACID TABLET (FP) PO SCH (09:40)
[2018-05-15] MEDS: metroNIDAZOLE 250 MG TABLET PO SCH (09:40)
[2018-05-15] MEDS: ESCITALOPRAM OXALATE 20 MG TABLET (FP) PO SCH (09:40)
[2018-05-15] MEDS: hydrOXYzine PAMOATE 50 MG CAPSULE (FP) PO PRN ×2 (09:40→14:03)
[2018-05-15] MEDS: BUDESONIDE/FORMETEROL FUMARATE 80/4.5 mcg INHALER IH SCH (09:41)
[2018-05-15] MEDS: IBUPROFEN 400 MG TABLET (FP) PO PRN ×2 (09:41→16:36)
[2018-05-15] MEDS: FLUTICASONE PROP 0.05% 16 GM NASAL SPRAY NS SCH (09:41)
[2018-05-15] MEDS: ALBUTEROL SO4 2.5/IPRATROPIUM 0.5 INH SOL 3 ML VIAL.NEB. NEB PRN (14:04)
--- NOTE | 2018-05-15 20:31 | PN ---
BHS Progress Note Note: Vital Signs Temperature 97.3 F L 05/14/18 07:09 Pulse Rate 73 05/14/18 07:09 Respiratory Rate 18 05/15/18 06:53 Blood Pressure 96/63 05/14/18 07:09 O2 Sat by Pulse Oximetry (%) Patient left AMA.
[2018-05-15] MEDS ORDERED: PT OWN MED DRAWER 7, Y5N ONE ×2 (21:18→23:19)
== END 2018-05-15 22:10 | disposition left against medical advice (07) | DRG 770 ==
LOC: YASAS 11:44 → Y3E 11:45
PROVIDERS: ADMIT Neuromusculoskeletal Medicine & OMM; ATTEND Neuromusculoskeletal Medicine & OMM
PROC: HZ42ZZZ Group Counseling for Substance Abuse Treatment, Cognitive-Behavioral (ICD-10-PCS; principal; 2018-05-11)
DX: F11.23 Opioid dependence with withdrawal (principal); F14.20 Cocaine dependence, uncomplicated; F17.210 Nicotine dependence, cigarettes, uncomplicated; F43.10 Post-traumatic stress disorder, unspecified; J45.909 Unspecified asthma, uncomplicated
CPT/HCPCS: 94640; J0475

== ENCOUNTER 2018-06-24 08:28 | Inpatient (IN) | payer OTHER ==
[2018-06-24 08:42] VITALS: BMI 21.1
--- NOTE | 2018-06-24 08:52 | HP ---
COWS - Scale Resting Pulse: 0= [place] 80 or Below Sweatin= Chills/Flushing Restless Observation: 3= Extraneous Movement Pupil Size: 1= Pupils >than Normal Bone or Joint Aches: 2= Severe Diffuse Aches Runny Nose/ Eye Tearin= Runny Nose/Eyes GI Upset > 30mins: 3= Vomiting/Diarrhea Tremor Observation: 2= Slight Tremor Visible Yawning Observation: 2= >3x During Session Anxiety or Irritability: 2=Irritable/Anxious Goose Flesh Skin: 0=Smooth Skin COWS Score: 18 CIWA Score - Admission Criteria OASAS Guidelines: Admission for Medically Managed Detox: Requires at least one of the followin. CIWA greater than 12 2. Seizures within the past 24 hours 3. Delirium tremens within the past 24 hours 4. Hallucinations within the past 24 hours 5. Acute intervention needed for co occurring medical disorder 6. Acute intervention needed for co occurring psychiatric disorder 7. Severe withdrawal that cannot be handled at a lower level of care (continued vomiting, continued diarrhea, abnormal vital signs) requiring intravenous medication and/or fluids 8. Admission ROS [facility] - [facility] Chief Complaint: i need help to stop using heroin and cocaine Allergies/Adverse Reactions: Allergies Allergy/AdvReac Type Severity Reaction Status Date / Time fish derived Allergy Verified 06/24/18 09:32 levofloxacin [From Levaquin] Allergy Verified 06/24/18 09:32 fish Allergy Uncoded 06/24/18 09:32 History of Present Illness: this 32 years old female with heroin and cocaine dependence seeking detox, withdrawal symptom, multiple admissions in detox and rehab but keep relapsing last detox [facility] 05/06/18 to 05/11/18,rehab 05/11/18 05/15/18 personality disorder,depression,depression non compliance weight loss nicotine dependence 2 packs/day requesting patch and gum longest period 3 years infected right forearm for 2 weeks Exam Limitations: No Limitations - Ebola screening Have you traveled outside of the country in the last 21 days: No Have you had contact with anyone from an Ebola affected area: No Have you been sick,other than usual withdrawal symptoms: No Do you have a fever: No - Review of Systems Constitutional: Chills, Loss of Appetite, Malaise, Night Sweats, Changes in sleep, Weakness, Unintentional Wgt. Loss EENT: reports: Tearing, Nose Congestion Respiratory: reports: Other (asthma s/p right thoracotomy in 2010 sepsis) Cardiac: reports: No Symptoms Reported GI: reports: Poor Appetite, Vomiting, Abdominal cramping : reports: No Symptoms Reported Musculoskeletal: reports: Back Pain, Joint Pain, Muscle Pain, Joint Stiffness Integumentary: reports: Dryness Neuro: reports: Headache, Tremors Endocrine: reports: No Symptoms Reported Hematology: reports: No Symptoms Reported Psychiatric: reports: No Sypmtoms Reported, Judgement Intact, Mood/Affect Appropiate, Orientated x3, Depressed, other (personality disorder,ptsd) Other Systems: Reviewed and Negative Patient History - Patient Medical History Hx Anemia: No Hx Asthma: Yes (on albuterol inhaler,symbicort,nebulizer) Hx Chronic Obstructive Pulmonary Disease (COPD): No Hx Cancer: No Hx Cardiac Disorders: No Hx Congestive Heart Failure: No Hx Hypertension: No Hx Hypercholesterolemia: No Hx Pacemaker: No HX Cerebrovascular Accident: No Hx Seizures: No Hx Dementia: No Hx Diabetes: No Hx Gastrointestinal Disorders: No Hx Liver Disease: No Hx Genitourinary Disorders: No Hx Sexually Transmitted Disorders: No Hx Renal Disease (ESRD): No Hx Thyroid Disease: No Hx Human Immunodeficiency Virus (HIV): No (negative last 05/21 negative) Hx Hepatitis C: Yes (no treatment) Hx Depression: Yes Hx Suicide Attempt: No Hx Bipolar Disorder: No Hx Schizophrenia: No Other Medical History: no suicidal,no homicidal,s/p right thoracotomy with sepsis in 2010 - Patient Surgical History Past Surgical History: No Hx Neurologic Surgery: No Hx Cataract Extraction: No Hx Cardiac Surgery: No Hx Lung Surgery: No Hx Breast Surgery: No Hx Breast Biopsy: No Hx Abdominal Surgery: No Hx Appendectomy: No Hx Cholecystectomy: No Hx Genitourinary Surgery: No Hx Section: Yes (x 4,last 10 years) Hx Orthopedic Surgery: No Other Surgical History: 4 C section, mrsa 2012, right lung sx,- thoracotomy 2009 Anesthesia Reaction: No - PPD History Previous Implant?: Yes Documented Results: Negative w/proof Implanted On Prior R Admission?: Yes Date: 05/08/18 Results: 0mm PPD to be Administered?: No - Reproductive History Patient is a Female of Child Bearing Age (11 -55 yrs old): Yes Last Menstrual Period: 06/10/18 Patient : No - Smoking Cessation Smoking history: Current every day smoker Have you smoked in the past 12 months: Yes Aproximately how many cigarettes per day: 40 Hx Chewing Tobacco Use: No Initiated information on smoking cessation: Yes 'Breaking Loose' booklet given: 06/24/18 - Substance & Tx. History Hx Alcohol Use: No Hx Substance Use: Yes Substance Use Type: Cocaine, Heroin Hx Substance Use Treatment: Yes ([facility] 05/06/18 to 05/11/18,rehab 05/11/18 t0 ) - Substances Abused Heroin Route: Injection Frequency: Daily Amount used: 20 bags Age of first use: 23 Date of Last Use: 06/23/18 Cocaine Route: Smoking Frequency: Daily Amount used: 100$ Age of first use: 23 Date of Last Use: 06/23/18 Family Disease History - Family Disease History Family Disease History: CA: Father (colon,), Mother (throat,) Admission Physical Exam BHS - Vital Signs Vital Signs: Vital Signs - 24 hr 06/24/18 08:39 Temperature 97.7 F Pulse Rate 79 Respiratory 18 Rate Blood Pressure 98/60 - Physical General Appearance: Yes: Moderate Distress, Tremorous, Irritable, Sweating, Anxious HEENTM: Yes: Normal ENT Inspection, FIDEL, Pharynx Normal Respiratory: Yes: Lungs Clear, Normal Breath Sounds, No Respiratory Distress, Other (s/p right thorcotomy in 2009) Neck: Yes: Within Normal Limits, Supple, Trachea in good position Breast: Yes: Breast Exam Deferred Cardiology: Yes: Within Normal Limits, Regular Rhythm, Regular Rate, S1, S2 Abdominal: Yes: Within Normal Limits, Normal Bowel Sounds, Non Tender, Flat, Soft Genitourinary: Yes: Within Normal Limits Back: Yes: Muscle Spasm Extremities: Yes: Within Normal Limits, Normal Range of Motion, Tremors, Inflammation (cellulitis r/o abscess of right forearm) Neurological: Yes: gastroenterology nurse II-XII NML intact, Fully Oriented, Alert, Motor Strength 5/5 Integumentary: Yes: Dry, Track Benson Lymphatic: Yes: Within Normal Limits - Diagnostic (1) Opioid dependence with withdrawal Current Visit: No Status: Chronic (2) Abscess of right arm Current Visit: No Status: Chronic (3) Bronchial asthma Current Visit: No Status: Chronic (4) Cocaine dependence Current Visit: No Status: Acute Qualifiers: (5) PTSD (post-traumatic stress disorder) Current Visit: No Status: Chronic (6) Depression Current Visit: Yes Status: Acute (7) Personality disorder Current Visit: Yes Status: Acute (8) Weight loss Current Visit: Yes Status: Acute Cleared for Admission [facility] - Detox or Rehab [facility] Level of Care: Medically Managed Detox Regimen/Protocol: Methadone [facility] Breath Alcohol Content Breath Alcohol Content: 0 Urine Pregancy Test - Result Urine Test Results: Negative - NO line present Urine Drug Screen - Results Drug Screen Negative: No Urine Drug Screen Results: PRESTON-Cocaine, OPI-Opiates Inpatient Rehab Admission - Rehab Decision to Admit Inpatient rehab admission?: No
[2018-06-24] MEDS ORDERED: METHOCARBAMOL 500 MG TABLET PO PRN (09:11)
[2018-06-24] MEDS ORDERED: MAGNESIUM HYDROX 2400MG/30ML ORAL SUSPENSION 30 ML CUP PO PRN (09:11)
[2018-06-24] MEDS ORDERED: MAG HYDROX/AL HYDROX/SIMETH 30 ML UNIT-DOSE CUP PO PRN (09:11)
[2018-06-24] MEDS ORDERED: MELATONIN 5 MG TABLETS PO PRN (09:11)
[2018-06-24] MEDS ORDERED: ACETAMINOPHEN 325 MG TABLET (FP) PO PRN ×2 (09:11)
[2018-06-24] MEDS ORDERED: NICOTINE POLACRILEX 4 MG GUM BUC PRN (09:11)
[2018-06-24] MEDS ORDERED: cloNIDine HCL 0.1 MG TABLET PO PRN (09:11)
[2018-06-24] MEDS ORDERED: MAGNESIUM CITRATE 300 ML BOTTLE PO PRN (09:11)
[2018-06-24] MEDS ORDERED: BISMUTH SUBSALICYLATE 262 MG/15 ML BTL PO PRN (09:11)
[2018-06-24] MEDS ORDERED: MENTHOL/PHENOL 1 EACH UD MM PRN (09:11)
--- NOTE | 2018-06-24 09:19 | HP ---
COWS - Scale Resting Pulse: 0= [place] 80 or Below Sweatin= Chills/Flushing Restless Observation: 3= Extraneous Movement Pupil Size: 1= Pupils >than Normal Bone or Joint Aches: 2= Severe Diffuse Aches Runny Nose/ Eye Tearin= Runny Nose/Eyes GI Upset > 30mins: 3= Vomiting/Diarrhea Tremor Observation: 2= Slight Tremor Visible Yawning Observation: 2= >3x During Session Anxiety or Irritability: 2=Irritable/Anxious Goose Flesh Skin: 0=Smooth Skin COWS Score: 18 CIWA Score - Admission Criteria OASAS Guidelines: Admission for Medically Managed Detox: Requires at least one of the followin. CIWA greater than 12 2. Seizures within the past 24 hours 3. Delirium tremens within the past 24 hours 4. Hallucinations within the past 24 hours 5. Acute intervention needed for co occurring medical disorder 6. Acute intervention needed for co occurring psychiatric disorder 7. Severe withdrawal that cannot be handled at a lower level of care (continued vomiting, continued diarrhea, abnormal vital signs) requiring intravenous medication and/or fluids 8. Admission ROS [facility] Allergies/Adverse Reactions: Allergies Allergy/AdvReac Type Severity Reaction Status Date / Time fish derived Allergy Verified 05/13/18 17:06 levofloxacin [From Levaquin] Allergy Verified 05/06/18 12:53 fish Allergy Uncoded 05/06/18 12:54 - Ebola screening Have you traveled outside of the country in the last 21 days: No Have you had contact with anyone from an Ebola affected area: No Have you been sick,other than usual withdrawal symptoms: No Do you have a fever: No Patient History - Patient Medical History Hx Anemia: No Hx Asthma: Yes (on albuterol inhaler,symbicort,nebulizer) Hx Chronic Obstructive Pulmonary Disease (COPD): No Hx Cancer: No Hx Cardiac Disorders: No Hx Congestive Heart Failure: No Hx Hypertension: No Hx Hypercholesterolemia: No Hx Pacemaker: No HX Cerebrovascular Accident: No Hx Seizures: No Hx Dementia: No Hx Diabetes: No Hx Gastrointestinal Disorders: No Hx Liver Disease: No Hx Genitourinary Disorders: No Hx Sexually Transmitted Disorders: No Hx Renal Disease (ESRD): No Hx Thyroid Disease: No Hx Human Immunodeficiency Virus (HIV): No (negative last 05/21 negative) Hx Hepatitis C: Yes (no treatment) Hx Depression: Yes Hx Suicide Attempt: No Hx Bipolar Disorder: No Hx Schizophrenia: No Other Medical History: no suicidal,no homicidal,s/p right thoracotomy with sepsis in 2010 - Patient Surgical History Past Surgical History: No Hx Neurologic Surgery: No Hx Cataract Extraction: No Hx Cardiac Surgery: No Hx Lung Surgery: No Hx Breast Surgery: No Hx Breast Biopsy: No Hx Abdominal Surgery: No Hx Appendectomy: No Hx Cholecystectomy: No Hx Genitourinary Surgery: No Hx Section: Yes (x 4,last 10 years) Hx Orthopedic Surgery: No Other Surgical History: 4 C section, mrsa 2012, right lung sx,- thoracotomy 2009 Anesthesia Reaction: No - PPD History Previous Implant?: Yes Documented Results: Negative w/proof Implanted On Prior [facility] Admission?: Yes Date: 05/08/18 Results: 0mm - Reproductive History Last Menstrual Period: 06/10/18 Patient : No - Smoking Cessation Smoking history: Current every day smoker Have you smoked in the past 12 months: Yes Aproximately how many cigarettes per day: 40 Hx Chewing Tobacco Use: No Initiated information on smoking cessation: Yes - Substances Abused Heroin Route: Injection Frequency: Daily Amount used: 20 bags Age of first use: 23 Date of Last Use: 06/23/18 Cocaine Route: Smoking Frequency: Daily Amount used: 100$ Age of first use: 23 Date of Last Use: 06/23/18 Family Disease History - Family Disease History Family Disease History: CA: Father (colon,), Mother (throat,) Admission Physical Exam BHS - Vital Signs Vital Signs: Vital Signs - 24 hr 06/24/18 08:39 Temperature 97.7 F Pulse Rate 79 Respiratory 18 Rate Blood Pressure 98/60 - Physical General Appearance: Yes: Moderate Distress, Tremorous, Irritable, Sweating, Anxious HEENTM: Yes: Normal ENT Inspection, FIDEL, Pharynx Normal Respiratory: Yes: Lungs Clear, Normal Breath Sounds, No Respiratory Distress, Surgical Scar (s/p right thoracotomy) Neck: Yes: Supple, Trachea in good position, Crepetius Breast: Yes: Breast Exam Deferred Cardiology: Yes: Within Normal Limits, Regular Rhythm, Regular Rate, S1, S2 Abdominal: Yes: Within Normal Limits, Normal Bowel Sounds, Non Tender, Flat, Soft Genitourinary: Yes: Within Normal Limits Back: Yes: Muscle Spasm Musculoskeletal: Yes: Back pain, Joint Stiffness, Muscle Pain Extremities: Yes: Within Normal Limits, Normal Range of Motion, Tremors, Swelling, Inflammation, Other (cellulitis with abscess right forearm) Neurological: Yes: vp lab II-XII NML intact, Fully Oriented, Alert, Motor Strength 5/5 Integumentary: Yes: Dry, Track Benson Lymphatic: Yes: Within Normal Limits - Diagnostic (1) Opioid dependence with withdrawal Current Visit: No Status: Chronic (2) Abscess of right arm Current Visit: No Status: Acute (3) Bronchial asthma Current Visit: No Status: Acute (4) Cocaine dependence Current Visit: No Status: Chronic Qualifiers: (5) PTSD (post-traumatic stress disorder) Current Visit: No Status: Chronic (6) Depression Current Visit: Yes Status: Acute (7) Personality disorder Current Visit: Yes Status: Acute (8) Weight loss Current Visit: Yes Status: Acute (9) History of thoracotomy Current Visit: Yes Status: Acute Cleared for Admission [facility] - Detox or Rehab [facility] Level of Care: Medically Managed Detox Regimen/Protocol: Methadone [facility] Breath Alcohol Content Breath Alcohol Content: 0 Urine Pregancy Test - Result Urine Test Results: Negative - NO line present Urine Drug Screen - Results Drug Screen Negative: No Urine Drug Screen Results: PRESTON-Cocaine, OPI-Opiates
[2018-06-24] MEDS ORDERED: METHADONE HCL 10 MG TABLET (FOR DETOX USE ONLY) PO ONE ×2 (10:27→23:00)
[2018-06-24] MEDS: NICOTINE 21 MG/24 HOURS TOPICAL PATCH TD SCH (11:18)
[2018-06-24] MEDS: PRENATAL VITAMINS W/ FOLIC ACID TABLET (FP) PO SCH (11:18)
[2018-06-24] MEDS: SULFAMETHOXAZOLE/TRIMETHOPRIM 800MG/160MG D.S. TABLET PO SCH ×2 (11:18→22:08)
--- NOTE | 2018-06-24 13:22 | CONSULT ---
[facility] Psychiatric Consult - Data Date of interview: 06/24/18 Admission source: Shaheen
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
[2018-06-24] MEDS: diazePAM 5 MG TABLET PO PRN (15:35)
[2018-06-24] MEDS: IBUPROFEN 400 MG TABLET (FP) PO PRN ×2 (15:36→22:11)
[2018-06-24] MEDS: ALBUTEROL SO4 2.5/IPRATROPIUM 0.5 INH SOL 3 ML VIAL.NEB. NEB PRN (20:57)
[2018-06-24] MEDS: BUDESONIDE/FORMETEROL FUMARATE 80/4.5 mcg INHALER IH SCH (22:06)
[2018-06-24] MEDS: ALBUTEROL SO4 8 GM HFA INHALER IH PRN (22:07)
[2018-06-24] MEDS: GABAPENTIN 300 MG CAPSULE (FP) PO SCH (22:08)
[2018-06-24] MEDS: PRAZOSIN HCL 1 MG CAPSULE PO SCH (22:08)
[2018-06-24] MEDS: MIRTAZAPINE 15 MG TABLET (FP) PO SCH (22:09)
[2018-06-24] MEDS: THIAMINE HCL 100 MG TABLET (FP) PO SCH (22:09)
[2018-06-24] MEDS: hydrOXYzine PAMOATE 25 MG CAPSULE (FP) PO PRN (22:12)
[2018-06-25] MEDS: ALBUTEROL SO4 2.5/IPRATROPIUM 0.5 INH SOL 3 ML VIAL.NEB. NEB PRN ×2 (09:55→19:33)
[2018-06-25] MEDS ORDERED: METHADONE HCL 10 MG TABLET (FOR DETOX USE ONLY) PO ONE (10:00)
[2018-06-25] MEDS: GABAPENTIN 300 MG CAPSULE (FP) PO SCH ×2 (10:32→22:25)
[2018-06-25] MEDS: PRENATAL VITAMINS W/ FOLIC ACID TABLET (FP) PO SCH (10:32)
[2018-06-25] MEDS: ESCITALOPRAM OXALATE 20 MG TABLET (FP) PO SCH (10:33)
[2018-06-25] MEDS: BUDESONIDE/FORMETEROL FUMARATE 80/4.5 mcg INHALER IH SCH ×2 (10:34→22:21)
[2018-06-25] MEDS: BACITRACIN 0.9 GM PACKET TP SCH ×2 (10:34→22:22)
[2018-06-25] MEDS: NICOTINE 21 MG/24 HOURS TOPICAL PATCH TD SCH (10:35)
[2018-06-25] MEDS: SULFAMETHOXAZOLE/TRIMETHOPRIM 800MG/160MG D.S. TABLET PO SCH ×2 (10:36→22:26)
[2018-06-25] MEDS: diazePAM 5 MG TABLET PO PRN ×2 (11:04→22:26)
[2018-06-25] MEDS: IBUPROFEN 400 MG TABLET (FP) PO PRN ×2 (11:08→19:50)
--- NOTE | 2018-06-25 11:53 | PN ---
BHS COWS - Scale Resting Pulse: 0= [place] 80 or Below Sweatin=Flushed/Facial Moisture Restless Observation: 1= Difficult to Sit Still Pupil Size: 0= Normal to Room Light Bone or Joint Aches: 2= Severe Diffuse Aches Runny Nose/ Eye Tearin= Runny Nose/Eyes GI Upset > 30mins: 1= Stomach Cramp Tremor Observation of Outstretched Hands: 2= Slight Tremor Visible Yawning Observation: 2= >3x During Session Anxiety or Irritability: 2=Irritable/Anxious Goose Flesh Skin: 0=Smooth Skin COWS Score: 14 S Progress Note (SOAP) Subjective: agitation anxiety sweats shakes interrupted sleep body aches i need motrin 800mg Objective: 06/25/18 11:52 Vital Signs Temperature 97.3 F L 06/25/18 09:39 Pulse Rate 67 06/25/18 09:39 Respiratory Rate 18 06/25/18 09:39 Blood Pressure 102/61 06/25/18 09:39 O2 Sat by Pulse Oximetry (%) labs pending aaox3 ambulating no acute distress Assessment: 06/25/18 11:53 withdrawal sx Plan: continue detox increase fluids motrin 800mg tid
[2018-06-25] MEDS: ALBUTEROL SO4 8 GM HFA INHALER IH PRN (22:22)
[2018-06-25] MEDS: THIAMINE HCL 100 MG TABLET (FP) PO SCH (22:25)
[2018-06-25] MEDS: MIRTAZAPINE 15 MG TABLET (FP) PO SCH (22:26)
[2018-06-25] MEDS: PRAZOSIN HCL 1 MG CAPSULE PO SCH (22:57)
[2018-06-26] MEDS: ALBUTEROL SO4 2.5/IPRATROPIUM 0.5 INH SOL 3 ML VIAL.NEB. NEB PRN ×2 (09:50→17:11)
[2018-06-26] MEDS ORDERED: METHADONE HCL 10 MG TABLET (FOR DETOX USE ONLY) PO ONE (10:00)
[2018-06-26] MEDS: GABAPENTIN 300 MG CAPSULE (FP) PO SCH ×2 (10:39→22:20)
[2018-06-26] MEDS: SULFAMETHOXAZOLE/TRIMETHOPRIM 800MG/160MG D.S. TABLET PO SCH ×2 (10:39→22:16)
[2018-06-26] MEDS: BUDESONIDE/FORMETEROL FUMARATE 80/4.5 mcg INHALER IH SCH ×2 (10:39→22:12)
[2018-06-26] MEDS: PRENATAL VITAMINS W/ FOLIC ACID TABLET (FP) PO SCH (10:39)
[2018-06-26] MEDS: ESCITALOPRAM OXALATE 20 MG TABLET (FP) PO SCH (10:39)
[2018-06-26] MEDS: BACITRACIN 0.9 GM PACKET TP SCH ×2 (10:39→22:13)
[2018-06-26] MEDS: NICOTINE 21 MG/24 HOURS TOPICAL PATCH TD SCH (10:42)
[2018-06-26] MEDS: IBUPROFEN 400 MG TABLET (FP) PO PRN ×2 (11:14→22:15)
[2018-06-26] MEDS: ALBUTEROL SO4 8 GM HFA INHALER IH PRN ×2 (11:32→22:13)
[2018-06-26] MEDS: diazePAM 5 MG TABLET PO PRN ×2 (11:57→22:20)
--- NOTE | 2018-06-26 12:10 | PN ---
BHS COWS - Scale Resting Pulse: 0= [place] 80 or Below Sweatin=Flushed/Facial Moisture Restless Observation: 1= Difficult to Sit Still Pupil Size: 0= Normal to Room Light Bone or Joint Aches: 1= Mild Discomfort Runny Nose/ Eye Tearin= Nasal Congestion GI Upset > 30mins: 0= None Tremor Observation of Outstretched Hands: 2= Slight Tremor Visible Yawning Observation: 2= >3x During Session Anxiety or Irritability: 2=Irritable/Anxious Goose Flesh Skin: 0=Smooth Skin COWS Score: 11 S Progress Note (SOAP) Subjective: anxiety sweats interrupted sleep body aches Objective: 06/26/18 12:09 Vital Signs Temperature 96.9 F L 06/26/18 09:59 Pulse Rate 78 06/26/18 09:59 Respiratory Rate 16 06/26/18 09:59 Blood Pressure 121/87 06/26/18 09:59 O2 Sat by Pulse Oximetry (%) labs pending aaox3 ambulating no acute distress Assessment: 06/26/18 12:09 withdrawal sx Plan: continue detox increase fluids
[2018-06-26] MEDS: BACLOFEN 10 MG TABLET (FP) PO SCH ×2 (15:47→22:15)
[2018-06-26] MEDS: hydrOXYzine PAMOATE 25 MG CAPSULE (FP) PO PRN (18:03)
[2018-06-26] MEDS: THIAMINE HCL 100 MG TABLET (FP) PO SCH (22:14)
[2018-06-26] MEDS: MIRTAZAPINE 15 MG TABLET (FP) PO SCH (22:14)
[2018-06-26] MEDS: PRAZOSIN HCL 1 MG CAPSULE PO SCH (22:43)
[2018-06-27] MEDS: BACLOFEN 10 MG TABLET (FP) PO SCH ×3 (06:25→22:27)
[2018-06-27] MEDS ORDERED: COLLOIDAL OATMEAL 1 BAR EACH TP PRN (09:58)
[2018-06-27] MEDS ORDERED: METHADONE HCL 10 MG TABLET (FOR DETOX USE ONLY) PO ONE (10:00)
[2018-06-27] MEDS ORDERED: metroNIDAZOLE 250 MG TABLET PO ONE (10:05)
[2018-06-27 10:41] LABS: HEMATOCRIT 37.9 % (32.4-45.2); MCH 26.8 pg (25.7-33.7); MCHC 31.7 g/dl (32.0-36.0); MEAN CELL VOLUME 84.5 fl (80-96); MEAN PLT VOLUME 7.7 fl (7.5-11.1); PLATELET COUNT 264 K/MM3 (134-434); RBC 4.49 M/mm3 (3.60-5.2); RDW 15.9 % (11.6-15.6)
[2018-06-27] MEDS: GABAPENTIN 300 MG CAPSULE (FP) PO SCH ×2 (10:48→22:27)
[2018-06-27] MEDS: SULFAMETHOXAZOLE/TRIMETHOPRIM 800MG/160MG D.S. TABLET PO SCH ×2 (10:48→22:27)
[2018-06-27] MEDS: BACITRACIN 0.9 GM PACKET TP SCH ×2 (10:48→22:27)
[2018-06-27] MEDS: BUDESONIDE/FORMETEROL FUMARATE 80/4.5 mcg INHALER IH SCH ×2 (10:48→22:30)
[2018-06-27] MEDS: ESCITALOPRAM OXALATE 20 MG TABLET (FP) PO SCH (10:48)
[2018-06-27] MEDS: PRENATAL VITAMINS W/ FOLIC ACID TABLET (FP) PO SCH (10:49)
[2018-06-27] MEDS: NICOTINE 21 MG/24 HOURS TOPICAL PATCH TD SCH (10:49)
[2018-06-27 10:58] LABS: ALBUMIN 3.4 g/dl (3.4-5.0); ALK PHOS 79 U/L (45-117); ANION GAP 7 MMOL/L (8-16); BILIRUBIN,TOTAL 0.1 mg/dL (0.2-1); BLOOD UREA NITROGEN 20 mg/dL (7-18); CALCIUM 8.9 mg/dL (8.5-10.1); CHLORIDE 105 mmol/L (98-107); CO2 28 mmol/L (21-32); CREATININE 0.9 mg/dL (0.55-1.3); GLUCOSE,RANDOM 79 mg/dL (74-106); POTASSIUM 4.9 mmol/L (3.5-5.1); SGOT/AST 15 U/L (15-37); SGPT/ALT 32 U/L (13-61); SODIUM 140 mmol/L (136-145); TOT PROT 7.1 g/dl (6.4-8.2)
[2018-06-27] MEDS: hydrOXYzine PAMOATE 25 MG CAPSULE (FP) PO PRN (11:29)
--- NOTE | 2018-06-27 11:32 | PN ---
S Progress Note (SOAP) Subjective: anxiety dry itchy skin I have red spots on my legs vaginal discharge with odor sweats ear pain Objective: 06/27/18 11:32 Vital Signs Temperature 98.3 F 06/27/18 09:54 Pulse Rate 87 06/27/18 09:54 Respiratory Rate 18 06/27/18 09:54 Blood Pressure 107/68 06/27/18 09:54 O2 Sat by Pulse Oximetry (%) Laboratory Tests 06/27/18 06/27/18 07:00 07:00 WBC 5.0 RBC 4.49 Hgb 12.0 Hct 37.9 MCV 84.5 MCH 26.8 MCHC 31.7 L RDW 15.9 H Plt Count 264 MPV 7.7 Sodium 140 Potassium 4.9 Chloride 105 Carbon Dioxide 28 Anion Gap 7 L BUN 20 H Creatinine 0.9 Creat Clearance w eGFR 71.67 Random Glucose 79 Calcium 8.9 Total Bilirubin 0.1 L AST 15 ALT 32 Alkaline Phosphatase 79 Total Protein 7.1 Albumin 3.4 aaox3 ambulating no acute distress left ear assessed; wax noted no s/s of infection. Assessment: 06/27/18 11:32 mild withdrawal sx Plan: continue detox increase fluids psych ordered revisit for her anxiety flagyl 500mg tid motrin prn aveeno soap
--- NOTE | 2018-06-27 13:13 | PN ---
Psychiatric Progress Note Vital Signs: Vital Signs Period Temp Pulse Resp BP Sys/[place] Pulse Ox Last 24 Hr 96 F-98.3 F 63-87 16-18 107-120/58-73 Date of Session: 06/27/18 Chief Complaint:: "i'm anxious" HPI: This is patient's day four of detox on [facility]. Patient complaining of worsening anxiety which is triggering her asthma. ROS: Significant for recent infection right forearm(IVDA), bronchial asthma, hepatitis C, history of treatment for mrsa in 2012, right thoracotomy 2009 and c -section x4 Current Medications: Active Medications Generic Name Dose Route Start Last Admin Trade Name Freq PRN Reason Stop Dose Admin Acetaminophen 650 mg 06/24/18 09:11 Tylenol - PO Q6H PRN PAIN LEVEL 4 - 6 Acetaminophen 650 mg 06/24/18 09:11 Tylenol - PO Q6H PRN FEVER Al Hydroxide/Mg Hydroxide 30 ml 06/24/18 09:11 06/25/18 20:24 Mylanta Oral Suspension - PO 30 ml Q6H PRN Administration DYSPEPSIA Albuterol Sulfate 2 puff 06/24/18 10:25 06/26/18 22:13 Ventolin Hfa Inhaler - IH 2 puff Q4H PRN Administration WHEEZING Albuterol/Ipratropium 1 amp 06/24/18 10:25 06/26/18 17:11 Duoneb - NEB 1 amp Q4H PRN Administration WHEEZING Bacitracin 0.9 gm 06/25/18 10:00 06/27/18 10:48 Bacitracin - TP 0.9 gm BID SOUMYA Administration Baclofen 10 mg 06/26/18 14:00 06/27/18 06:25 Lioresal - PO 10 mg TID SOUMYA Administration Bismuth Subsalicylate 30 ml 06/24/18 09:11 Pepto-Bismol Liquid - PO Q1H PRN DIARRHEA Budesonide/Formoterol Fumarate 2 puff 06/24/18 22:00 06/27/18 10:48 Symbicort 80/4.5mcg - IH 2 puff BID SOUMYA Administration Colloidal Oatmeal 1 applic 06/27/18 09:58 06/27/18 11:36 Aveeno Soap - TP 1 applic DAILY PRN Administration HYGEINE Escitalopram Oxalate 20 mg 06/25/18 10:00 06/27/18 10:48 Lexapro - PO 20 mg DAILY SOUMYA Administration Eucalyptus/Menthol/Phenol/Sorbitol 1 each 06/24/18 09:11 Cepastat Lozenge - MM 06/30/18 09:11 Q4H PRN SORE THROAT Gabapentin 600 mg 06/24/18 22:00 06/27/18 10:48 Neurontin - PO 600 mg BID SOUMYA Administration Hydroxyzine Pamoate 25 mg 06/24/18 09:11 06/27/18 11:29 Vistaril - PO 06/30/18 09:11 25 mg Q6H PRN Administration For Anxiety Ibuprofen 800 mg 06/25/18 11:54 06/26/18 22:15 Motrin - PO 800 mg Q8H PRN Administration PAIN LEVEL 4 - 6 Magnesium Citrate 300 ml 06/24/18 09:11 Citroma - PO Q48H PRN CONSTIPATION Magnesium Hydroxide 30 ml 06/24/18 09:11 Milk Of Magnesia - PO PRN PRN CONSTIPATION Melatonin 5 mg 06/24/18 09:11 Melatonin PO HS PRN INSOMNIA Methadone HCl 5 mg 06/28/18 06:00 Dolophine - PO 06/28/18 06:01 ONCE@0600 ONE Metronidazole 500 mg 06/27/18 14:00 Flagyl - PO TID SOUMYA Mirtazapine 45 mg 06/24/18 22:00 06/26/18 22:14 Remeron - PO 45 mg HS SOUMYA Administration Nicotine 21 mg 06/24/18 10:00 06/27/18 10:49 Nicoderm Patch - TD 21 mg DAILY SOUMYA Administration Nicotine Polacrilex 4 mg 06/24/18 09:11 Nicorette Gum - BUC Q2H PRN NICOTINE REPLACEMENT RX Prazosin HCl 2 mg 06/24/18 22:00 06/26/18 22:43 Minipress - PO Not Given HS SOUMYA Multivit/Folic Acid/Iron 1 tab 06/24/18 10:00 06/27/18 10:49 Vitamins (Sjr) - PO 1 tab DAILY SOUMYA Administration Thiamine HCl 100 mg 06/24/18 22:00 06/26/18 22:14 Vitamin B1 - PO 100 mg HS SOUMYA Administration Trimethoprim/Sulfamethoxazole 1 each 06/24/18 10:00 03/28/19 10:48 Bactrim Ds - PO 1 each BID SOUMYA Administration Medication(s) Change(s): Will order one time dose of gabapentin 300mg + increase vistaril 25mg Q6H to 50mg Q4H. Current Side Effect: No Lab tests ordered: No Lab tests reviewed: Yes Provider note:: Patient reports worsening anxiety. Dr. Argueta's note read and appreciated. States she was receiving valium but was made aware that she completed her taper and is now reporting worsening anxiety which is triggering her asthma. Medications reviewed. Will order a one time dose of gabapentin 300mg and increase PRN vistaril 25mg q6h to 50mg q4h. Patient educated on the importance of utilizing her coping skills when her anxiety worsens. Patient satisifed and receptive to feedback. Patient scheduled for discharge tomorrow. Total face to face time:: 25 Mental Status Exam - Mental Status Exam Alert and Oriented to: Time, Place, Person Cognitive Function: Good Patient Appearance: Well Groomed Mood: Anxious Affect: Mood Congruent Patient Behavior: Cooperative Speech Pattern: Clear, Appropriate Voice Loudness: Normal Thought Process: Intact, Goal Oriented Thought Disorder: Not Present Hallucinations: Denies Suicidal Ideation: Denies Homicidal Ideation: Denies Insight/Judgement: Poor Sleep: Fair Appetite: Fair Muscle strength/Tone: Normal Gait/Station: Normal Psychiatric Treatment Plan - Problem List (1) Opioid dependence Current Visit: Yes (2) Substance induced mood disorder Current Visit: Yes (3) Substance-induced sleep disorder Current Visit: Yes (4) MDD (major depressive disorder), recurrent episode, moderate Current Visit: Yes (5) PTSD (post-traumatic stress disorder) Current Visit: No (6) Cocaine dependence Current Visit: No Qualifiers:
[2018-06-27] MEDS ORDERED: GABAPENTIN 300 MG CAPSULE (FP) PO ONE (14:40)
[2018-06-27] MEDS: metroNIDAZOLE 250 MG TABLET PO SCH ×2 (14:48→22:26)
[2018-06-27] MEDS: MIRTAZAPINE 15 MG TABLET (FP) PO SCH (22:27)
[2018-06-27] MEDS: THIAMINE HCL 100 MG TABLET (FP) PO SCH (22:28)
[2018-06-27] MEDS: hydrOXYzine PAMOATE 50 MG CAPSULE (FP) PO PRN (22:28)
[2018-06-27] MEDS: ALBUTEROL SO4 8 GM HFA INHALER IH PRN (22:30)
[2018-06-27] MEDS: IBUPROFEN 400 MG TABLET (FP) PO PRN (22:37)
[2018-06-27] MEDS: PRAZOSIN HCL 1 MG CAPSULE PO SCH (22:38)
[2018-06-28] MEDS ORDERED: METHADONE HCL 5 MG TABLET (FOR DETOX USE ONLY) PO ONE (06:00)
[2018-06-28] MEDS: BACLOFEN 10 MG TABLET (FP) PO SCH (06:08)
[2018-06-28] MEDS: metroNIDAZOLE 250 MG TABLET PO SCH (06:08)
[2018-06-28] MEDS: PRENATAL VITAMINS W/ FOLIC ACID TABLET (FP) PO SCH (10:11)
[2018-06-28] MEDS: BACITRACIN 0.9 GM PACKET TP SCH (10:11)
[2018-06-28] MEDS: IBUPROFEN 400 MG TABLET (FP) PO PRN (10:11)
[2018-06-28] MEDS: GABAPENTIN 300 MG CAPSULE (FP) PO SCH (10:12)
[2018-06-28] MEDS: ESCITALOPRAM OXALATE 20 MG TABLET (FP) PO SCH (10:12)
[2018-06-28] MEDS: SULFAMETHOXAZOLE/TRIMETHOPRIM 800MG/160MG D.S. TABLET PO SCH (10:12)
[2018-06-28] MEDS: NICOTINE 21 MG/24 HOURS TOPICAL PATCH TD SCH (10:12)
[2018-06-28] MEDS: BUDESONIDE/FORMETEROL FUMARATE 80/4.5 mcg INHALER IH SCH (10:12)
[2018-06-28] MEDS: hydrOXYzine PAMOATE 50 MG CAPSULE (FP) PO PRN (10:13)
[2018-06-28 10:16] VITALS: BP 115/62; PULSE 84; TEMP 97.7
[2018-06-28] MEDS: ALBUTEROL SO4 2.5/IPRATROPIUM 0.5 INH SOL 3 ML VIAL.NEB. NEB PRN (10:23)
--- NOTE | 2018-06-28 12:56 | DS ---
[facility] Detox Discharge Summary Admission Date: 06/24/18 Discharge Date: 06/28/18 - History Present History: Opioid Dependence - Physical Exam Results Vital Signs: Vital Signs Temperature 97.7 F 06/28/18 09:11 Pulse Rate 84 06/28/18 09:11 Respiratory Rate 16 06/28/18 09:11 Blood Pressure 115/62 06/28/18 09:11 O2 Sat by Pulse Oximetry (%) - Treatment Hospital Course: Detox Protocol Followed, Detoxed Safely, Responded well, Discharged Condition Good, Rehab Referral Accepted - Medication Discharge Medications: Ambulatory Orders Albuterol 2.5/Ipratropium 0.5 [Duoneb -] 1 neb NEB Q4H PRN 05/11/18 Albuterol Sulfate Inhaler - [Ventolin Hfa Inhaler -] 1 - 2 inh PO Q4H PRN Budesonide/Formeterol Fumarate [SYMBICORT 80/4.5mcg -] 2 inh PO BID 05/11/18 Ibuprofen [Motrin -] 800 mg PO TID PRN 05/11/18 - Diagnosis (1) Depression Current Visit: Yes Status: Acute (2) History of thoracotomy Current Visit: Yes Status: Chronic (3) Personality disorder Current Visit: Yes Status: Acute (4) Substance induced mood disorder Current Visit: Yes Status: Acute (5) Substance-induced sleep disorder Current Visit: Yes Status: Acute (6) Hepatitis C Current Visit: Yes Status: Chronic Qualifiers: Viral hepatitis chronicity: chronic Hepatic coma status: without hepatic coma Qualified Code(s): B18.2 - Chronic viral hepatitis C (7) MDD (major depressive disorder), recurrent episode, moderate Current Visit: Yes Status: Chronic (8) Cocaine dependence Current Visit: Yes Status: Chronic Qualifiers: Substance use status: uncomplicated (9) Abscess of right arm Current Visit: Yes Status: Chronic (10) Bronchial asthma Current Visit: No Status: Chronic (11) Nicotine dependence Current Visit: Yes Status: Chronic Qualifiers: Nicotine product type: cigarettes Substance use status: uncomplicated Qualified Code(s): F17.210 - Nicotine dependence, cigarettes, uncomplicated (12) Opioid dependence with withdrawal Current Visit: Yes Status: Chronic (13) PTSD (post-traumatic stress disorder) Current Visit: No Status: Chronic - AMA Did Patient Leave Against Medical Advice: No (referred to [facility])
== END 2018-06-28 12:24 | disposition other institution (70) | DRG 773 ==
LOC: YASAS 08:28 → Y6N 09:41
PROVIDERS: ADMIT Surgery; ATTEND Surgery
PROC: HZ2ZZZZ Detoxification Services for Substance Abuse Treatment (ICD-10-PCS; principal; 2018-06-24)
DX: F11.23 Opioid dependence with withdrawal (principal); F14.20 Cocaine dependence, uncomplicated; F17.210 Nicotine dependence, cigarettes, uncomplicated; F33.1 Major depressive disorder, recurrent, moderate; F19.24 Other psychoactive substance dependence with psychoactive substance-induced mood disorder; F19.282 Other psychoactive substance dependence with psychoactive substance-induced sleep disorder; F60.9 Personality disorder, unspecified; F43.10 Post-traumatic stress disorder, unspecified; B18.2 Chronic viral hepatitis C; L02.413 Cutaneous abscess of right upper limb; L85.3 Xerosis cutis; Z98.890 Other specified postprocedural states
CPT/HCPCS: 36415; 80053; 85027; 86593; 87389; 94640; J0475

== ENCOUNTER 2018-06-28 12:49 | Inpatient (IN) | payer OTHER ==
[2018-06-28] MEDS ORDERED: MAGNESIUM HYDROX 2400MG/30ML ORAL SUSPENSION 30 ML CUP PO PRN (12:57)
[2018-06-28] MEDS ORDERED: ACETAMINOPHEN 325 MG TABLET (FP) PO PRN (12:57)
[2018-06-28] MEDS ORDERED: LOPERAMIDE HCL 2 MG CAPSULE PO PRN (12:57)
[2018-06-28] MEDS ORDERED: guaiFENesin 200 MG/10 ML 10 ML UNIT-DOSE CUPS PO PRN (12:57)
[2018-06-28] MEDS ORDERED: NICOTINE POLACRILEX 4 MG GUM BUC PRN (12:57)
[2018-06-28] MEDS ORDERED: MENTHOL/PHENOL 1 EACH UD MM PRN (12:57)
[2018-06-28] MEDS ORDERED: IBUPROFEN 400 MG TABLET (FP) PO PRN (12:57)
[2018-06-28] MEDS ORDERED: MAG HYDROX/AL HYDROX/SIMETH 30 ML UNIT-DOSE CUP PO PRN (12:57)
[2018-06-28] MEDS ORDERED: MAGNESIUM CITRATE 300 ML BOTTLE PO PRN (12:57)
[2018-06-28] MEDS ORDERED: P-EPHED 60MG/TRIPROLIDI 2.5MG TABLET PO PRN (12:57)
--- NOTE | 2018-06-28 12:57 | HP ---
NIGEL NARAYAN Rehab Assess/Revision - Admission History Admitted to Rehab from: [facility] Date of Admission to Rehab: 06/28/18 - Findings Detox History & Physical reviewed: Yes Concur with findings: Yes Inpatient Rehab Admission - Rehab Decision to Admit Inpatient rehab admission?: Yes - Initial Determination Are CD services needed?: Yes Free of communicable disease: Yes Not in need of hospitalization: Yes - Rehab Admission Criteria Previous failed treatment: Yes Poor recovery environment: Yes Comorbidities: Yes Lacks judgement: Yes Patient is meeting Inpatient Rehab admission criteria:: Yes
[2018-06-28] MEDS: metroNIDAZOLE 250 MG TABLET PO SCH ×2 (14:42→21:51)
[2018-06-28] MEDS: hydrOXYzine PAMOATE 50 MG CAPSULE (FP) PO PRN ×2 (14:42→21:52)
[2018-06-28] MEDS: GABAPENTIN 300 MG CAPSULE (FP) PO SCH (21:52)
[2018-06-28] MEDS: BACITRACIN 0.9 GM PACKET TP SCH (21:53)
[2018-06-28] MEDS: MIRTAZAPINE 15 MG TABLET (FP) PO SCH (21:53)
[2018-06-28] MEDS: THIAMINE HCL 100 MG TABLET (FP) PO SCH (21:54)
[2018-06-28] MEDS ORDERED: MELATONIN 5 MG TABLETS PO PRN (22:00)
[2018-06-28] MEDS: BUDESONIDE/FORMETEROL FUMARATE 80/4.5 mcg INHALER IH SCH (22:37)
[2018-06-28] MEDS ORDERED: COLLOIDAL OATMEAL 1 BAR EACH TP PRN (23:03)
[2018-06-28] MEDS: METHOCARBAMOL 500 MG TABLET PO SCH (23:52)
[2018-06-28] MEDS: PRAZOSIN HCL 1 MG CAPSULE PO SCH (23:53)
[2018-06-29] MEDS: METHOCARBAMOL 500 MG TABLET PO SCH ×3 (06:05→21:10)
[2018-06-29] MEDS: metroNIDAZOLE 250 MG TABLET PO SCH ×3 (06:05→21:08)
[2018-06-29] MEDS: BACITRACIN 0.9 GM PACKET TP SCH ×2 (09:40→21:07)
[2018-06-29] MEDS: NICOTINE 21 MG/24 HOURS TOPICAL PATCH TD SCH (09:40)
[2018-06-29] MEDS: ESCITALOPRAM OXALATE 20 MG TABLET (FP) PO SCH (09:40)
[2018-06-29] MEDS: GABAPENTIN 300 MG CAPSULE (FP) PO SCH ×2 (09:41→21:08)
[2018-06-29] MEDS: SULFAMETHOXAZOLE/TRIMETHOPRIM 800MG/160MG D.S. TABLET PO SCH (09:41)
[2018-06-29] MEDS: PRENATAL VITAMINS W/ FOLIC ACID TABLET (FP) PO SCH (09:41)
[2018-06-29] MEDS: IBUPROFEN 400 MG TABLET (FP) PO PRN ×2 (09:41→21:07)
[2018-06-29] MEDS: BUDESONIDE/FORMETEROL FUMARATE 80/4.5 mcg INHALER IH SCH ×2 (09:42→21:06)
[2018-06-29] MEDS: hydrOXYzine PAMOATE 50 MG CAPSULE (FP) PO PRN ×2 (09:43→21:07)
[2018-06-29] MEDS: MIRTAZAPINE 15 MG TABLET (FP) PO SCH (21:08)
[2018-06-29] MEDS: THIAMINE HCL 100 MG TABLET (FP) PO SCH (21:10)
[2018-06-29] MEDS: PRAZOSIN HCL 1 MG CAPSULE PO SCH (22:27)
[2018-06-30] MEDS: METHOCARBAMOL 500 MG TABLET PO SCH ×3 (06:20→21:12)
[2018-06-30] MEDS: metroNIDAZOLE 250 MG TABLET PO SCH ×3 (06:20→21:10)
[2018-06-30] MEDS: GABAPENTIN 300 MG CAPSULE (FP) PO SCH ×2 (09:51→21:10)
[2018-06-30] MEDS: BACITRACIN 0.9 GM PACKET TP SCH ×2 (09:51→21:09)
[2018-06-30] MEDS: hydrOXYzine PAMOATE 50 MG CAPSULE (FP) PO PRN ×2 (09:52→21:10)
[2018-06-30] MEDS: SULFAMETHOXAZOLE/TRIMETHOPRIM 800MG/160MG D.S. TABLET PO SCH (09:52)
[2018-06-30] MEDS: ESCITALOPRAM OXALATE 20 MG TABLET (FP) PO SCH (09:52)
[2018-06-30] MEDS: NICOTINE 21 MG/24 HOURS TOPICAL PATCH TD SCH (09:52)
[2018-06-30] MEDS: PRENATAL VITAMINS W/ FOLIC ACID TABLET (FP) PO SCH (09:52)
[2018-06-30] MEDS: BUDESONIDE/FORMETEROL FUMARATE 80/4.5 mcg INHALER IH SCH ×2 (09:52→21:09)
[2018-06-30] MEDS: IBUPROFEN 400 MG TABLET (FP) PO PRN ×2 (09:53→20:09)
[2018-06-30] MEDS: MIRTAZAPINE 15 MG TABLET (FP) PO SCH (21:09)
[2018-06-30] MEDS: PRAZOSIN HCL 1 MG CAPSULE PO SCH (21:10)
[2018-06-30] MEDS: THIAMINE HCL 100 MG TABLET (FP) PO SCH (21:12)
[2018-07-01] MEDS: metroNIDAZOLE 250 MG TABLET PO SCH ×3 (06:31→21:31)
[2018-07-01] MEDS: METHOCARBAMOL 500 MG TABLET PO SCH ×3 (06:31→21:32)
[2018-07-01] MEDS: GABAPENTIN 300 MG CAPSULE (FP) PO SCH ×2 (10:17→21:31)
[2018-07-01] MEDS: BACITRACIN 0.9 GM PACKET TP SCH ×2 (10:17→21:34)
[2018-07-01] MEDS: SULFAMETHOXAZOLE/TRIMETHOPRIM 800MG/160MG D.S. TABLET PO SCH (10:17)
[2018-07-01] MEDS: PRENATAL VITAMINS W/ FOLIC ACID TABLET (FP) PO SCH (10:17)
[2018-07-01] MEDS: ESCITALOPRAM OXALATE 20 MG TABLET (FP) PO SCH (10:17)
[2018-07-01] MEDS: hydrOXYzine PAMOATE 50 MG CAPSULE (FP) PO PRN ×2 (10:18→21:30)
[2018-07-01] MEDS: IBUPROFEN 400 MG TABLET (FP) PO PRN ×2 (10:18→21:30)
[2018-07-01] MEDS: NICOTINE 21 MG/24 HOURS TOPICAL PATCH TD SCH (10:18)
[2018-07-01] MEDS: BUDESONIDE/FORMETEROL FUMARATE 80/4.5 mcg INHALER IH SCH ×2 (10:20→21:33)
[2018-07-01] MEDS: THIAMINE HCL 100 MG TABLET (FP) PO SCH (21:30)
[2018-07-01] MEDS: MIRTAZAPINE 15 MG TABLET (FP) PO SCH (21:33)
[2018-07-01] MEDS: PRAZOSIN HCL 1 MG CAPSULE PO SCH (21:34)
[2018-07-02] MEDS: METHOCARBAMOL 500 MG TABLET PO SCH ×3 (06:15→21:16)
[2018-07-02] MEDS: metroNIDAZOLE 250 MG TABLET PO SCH ×3 (06:16→21:16)
[2018-07-02] MEDS: SULFAMETHOXAZOLE/TRIMETHOPRIM 800MG/160MG D.S. TABLET PO SCH (09:42)
[2018-07-02] MEDS: ESCITALOPRAM OXALATE 20 MG TABLET (FP) PO SCH (09:42)
[2018-07-02] MEDS: GABAPENTIN 300 MG CAPSULE (FP) PO SCH ×2 (09:42→21:17)
[2018-07-02] MEDS: PRENATAL VITAMINS W/ FOLIC ACID TABLET (FP) PO SCH (09:42)
[2018-07-02] MEDS: NICOTINE 21 MG/24 HOURS TOPICAL PATCH TD SCH (09:43)
[2018-07-02] MEDS: BACITRACIN 0.9 GM PACKET TP SCH ×2 (09:43→21:16)
[2018-07-02] MEDS: BUDESONIDE/FORMETEROL FUMARATE 80/4.5 mcg INHALER IH SCH ×2 (09:43→21:14)
[2018-07-02] MEDS: IBUPROFEN 400 MG TABLET (FP) PO PRN ×2 (09:44→21:17)
[2018-07-02] MEDS: hydrOXYzine PAMOATE 50 MG CAPSULE (FP) PO PRN ×2 (09:44→21:15)
[2018-07-02] MEDS ORDERED: ALBUTEROL SO4 8 GM HFA INHALER IH PRN (10:30)
--- NOTE | 2018-07-02 10:36 | PN ---
S Progress Note (SOAP) Subjective: Client with abscess on posterior side of right arm. States she has had it for several months, caused by shooting up in that area. Client states she applies the bacitracin daily; does not want a dressing. States that has made the abscess worse in the past. Reports a hx of MRSA infection in the past. Objective: Skin discolored, dark bluish and red, several puncture areas, not draining. Skin is hard and warm. 07/02/18 10:33 Assessment: 07/02/18 10:35 Abscess Plan: Continue with Bactrim; will assess again in 2 days.
--- NOTE | 2018-07-02 10:40 | PN ---
S Progress Note Note: Refusing vitamins. Reviewed medications with patient. Added rescue inhaler- client uses at home and c/o occasional SOB; hx of thorocotomy. Tylenol discontinued-client has hx of Hep C and reports hx of hospitalization for liver failure.
[2018-07-02] MEDS ORDERED: PT OWN MED DRAWER 7, Y5N ONE ×2 (14:16→21:14)
[2018-07-02] MEDS: THIAMINE HCL 100 MG TABLET (FP) PO SCH (21:13)
[2018-07-02] MEDS: PRAZOSIN HCL 1 MG CAPSULE PO SCH (21:15)
[2018-07-02] MEDS: MIRTAZAPINE 15 MG TABLET (FP) PO SCH (21:17)
[2018-07-03] MEDS: metroNIDAZOLE 250 MG TABLET PO SCH ×3 (06:09→21:05)
[2018-07-03] MEDS: METHOCARBAMOL 500 MG TABLET PO SCH ×3 (06:09→22:08)
[2018-07-03] MEDS: hydrOXYzine PAMOATE 50 MG CAPSULE (FP) PO PRN (10:01)
[2018-07-03] MEDS: ESCITALOPRAM OXALATE 20 MG TABLET (FP) PO SCH (10:01)
[2018-07-03] MEDS: PRENATAL VITAMINS W/ FOLIC ACID TABLET (FP) PO SCH (10:01)
[2018-07-03] MEDS: GABAPENTIN 300 MG CAPSULE (FP) PO SCH ×2 (10:01→21:06)
[2018-07-03] MEDS: IBUPROFEN 400 MG TABLET (FP) PO PRN ×2 (10:02→21:08)
[2018-07-03] MEDS: NICOTINE 21 MG/24 HOURS TOPICAL PATCH TD SCH (10:02)
[2018-07-03] MEDS: SULFAMETHOXAZOLE/TRIMETHOPRIM 800MG/160MG D.S. TABLET PO SCH (10:02)
[2018-07-03] MEDS: BUDESONIDE/FORMETEROL FUMARATE 80/4.5 mcg INHALER IH SCH ×2 (10:02→21:01)
[2018-07-03] MEDS: BACITRACIN 0.9 GM PACKET TP SCH ×2 (10:02→21:06)
[2018-07-03] MEDS ORDERED: PT OWN MED DRAWER 7, Y5N ONE ×2 (10:41→19:27)
[2018-07-03] MEDS: THIAMINE HCL 100 MG TABLET (FP) PO SCH (21:01)
[2018-07-03] MEDS: MIRTAZAPINE 15 MG TABLET (FP) PO SCH (21:05)
[2018-07-03] MEDS: PRAZOSIN HCL 1 MG CAPSULE PO SCH (21:06)
[2018-07-04] MEDS: metroNIDAZOLE 250 MG TABLET PO SCH ×3 (06:20→21:10)
[2018-07-04] MEDS: METHOCARBAMOL 500 MG TABLET PO SCH ×3 (06:21→21:12)
[2018-07-04] MEDS: BACITRACIN 0.9 GM PACKET TP SCH (09:53)
[2018-07-04] MEDS: GABAPENTIN 300 MG CAPSULE (FP) PO SCH ×2 (09:53→21:10)
[2018-07-04] MEDS: NICOTINE 21 MG/24 HOURS TOPICAL PATCH TD SCH (09:53)
[2018-07-04] MEDS: PRENATAL VITAMINS W/ FOLIC ACID TABLET (FP) PO SCH (09:54)
[2018-07-04] MEDS: SULFAMETHOXAZOLE/TRIMETHOPRIM 800MG/160MG D.S. TABLET PO SCH ×2 (09:54→21:10)
[2018-07-04] MEDS: ESCITALOPRAM OXALATE 20 MG TABLET (FP) PO SCH (09:54)
[2018-07-04] MEDS: BUDESONIDE/FORMETEROL FUMARATE 80/4.5 mcg INHALER IH SCH ×2 (09:55→21:12)
[2018-07-04] MEDS: IBUPROFEN 400 MG TABLET (FP) PO PRN ×2 (09:55→21:09)
[2018-07-04] MEDS: hydrOXYzine PAMOATE 50 MG CAPSULE (FP) PO PRN ×2 (09:55→21:09)
[2018-07-04] MEDS ORDERED: hydrOXYzine PAMOATE 50 MG CAPSULE (FP) PO PRN (10:23)
--- NOTE | 2018-07-04 14:32 | PN ---
S Progress Note (SOAP) Subjective: Reassessed abscess on posterior of right arm. Area continues to be red and swollen, although the openings appear to be healing and there is no drainage. Objective: Area continues to be red and swollen, although the openings appear to be healing and there is no drainage. Afebrile. Vital Signs (72 hours) 07/01/18 07/02/18 07/02/18 20:46 00:30 03:30 Temperature Pulse Rate 69 Respiratory 16 20 20 Rate Blood Pressure 102/68 07/02/18 07/02/18 07/03/18 06:41 08:40 00:30 Temperature 97.4 F L Pulse Rate 79 65 Respiratory 18 16 20 Rate Blood Pressure 111/66 101/53 L 07/03/18 07/03/18 07/03/18 03:30 07:03 21:00 Temperature 97.5 F L Pulse Rate 84 72 Respiratory 20 18 16 Rate Blood Pressure 100/65 100/58 L 07/04/18 07/04/18 07/04/18 00:30 03:30 07:07 Temperature 97.4 F L Pulse Rate 91 H Respiratory 18 18 18 Rate Blood Pressure 94/63 07/04/18 14:31 07/04/18 14:32 07/04/18 14:38 Assessment: 07/04/18 14:32 cellulitis Plan: Offered to change antibiotic to Keflex, patient refused. Increased bactrim to twice a day and changed bacitracin to bactroban.
--- NOTE | 2018-07-04 14:42 | PN ---
[facility] Progress Note Note: patient with anxiety and withdrawal symptoms. Visteral was held because of BP; patient is on minipress. However, minipress is prescribe for night terrors not blood pressure; client has hx of PTSD. At patient's request, minipress was discontinued.Visteral ordered, hold for BP<110.
[2018-07-04] MEDS: MUPIROCIN 2% TOPICAL OINTMENT 22 GM TUBE TP SCH (21:07)
[2018-07-04] MEDS: MIRTAZAPINE 15 MG TABLET (FP) PO SCH (21:10)
[2018-07-04] MEDS: THIAMINE HCL 100 MG TABLET (FP) PO SCH (21:12)
[2018-07-05] MEDS: METHOCARBAMOL 500 MG TABLET PO SCH ×3 (06:19→21:55)
[2018-07-05] MEDS: metroNIDAZOLE 250 MG TABLET PO SCH (06:20)
[2018-07-05] MEDS: ESCITALOPRAM OXALATE 20 MG TABLET (FP) PO SCH (09:52)
[2018-07-05] MEDS: SULFAMETHOXAZOLE/TRIMETHOPRIM 800MG/160MG D.S. TABLET PO SCH ×2 (09:52→21:53)
[2018-07-05] MEDS: NICOTINE 21 MG/24 HOURS TOPICAL PATCH TD SCH (09:52)
[2018-07-05] MEDS: PRENATAL VITAMINS W/ FOLIC ACID TABLET (FP) PO SCH (09:52)
[2018-07-05] MEDS: GABAPENTIN 300 MG CAPSULE (FP) PO SCH ×2 (09:52→21:53)
[2018-07-05] MEDS: IBUPROFEN 400 MG TABLET (FP) PO PRN (09:53)
[2018-07-05] MEDS: MUPIROCIN 2% TOPICAL OINTMENT 22 GM TUBE TP SCH ×2 (09:55→21:52)
[2018-07-05] MEDS: BUDESONIDE/FORMETEROL FUMARATE 80/4.5 mcg INHALER IH SCH ×2 (10:43→21:52)
[2018-07-05] MEDS ORDERED: PT OWN MED DRAWER 7, Y5N ONE (19:48)
[2018-07-05] MEDS: MIRTAZAPINE 15 MG TABLET (FP) PO SCH (21:53)
[2018-07-05] MEDS: hydrOXYzine PAMOATE 50 MG CAPSULE (FP) PO PRN (21:53)
[2018-07-05] MEDS: THIAMINE HCL 100 MG TABLET (FP) PO SCH (22:24)
[2018-07-06] MEDS: METHOCARBAMOL 500 MG TABLET PO SCH ×3 (06:39→21:07)
[2018-07-06] MEDS: MUPIROCIN 2% TOPICAL OINTMENT 22 GM TUBE TP SCH ×2 (10:08→21:43)
[2018-07-06] MEDS: GABAPENTIN 300 MG CAPSULE (FP) PO SCH ×2 (10:08→21:06)
[2018-07-06] MEDS: NICOTINE 21 MG/24 HOURS TOPICAL PATCH TD SCH (10:08)
[2018-07-06] MEDS: BUDESONIDE/FORMETEROL FUMARATE 80/4.5 mcg INHALER IH SCH ×2 (10:08→21:07)
[2018-07-06] MEDS: SULFAMETHOXAZOLE/TRIMETHOPRIM 800MG/160MG D.S. TABLET PO SCH ×2 (10:09→21:06)
[2018-07-06] MEDS: PRENATAL VITAMINS W/ FOLIC ACID TABLET (FP) PO SCH (10:09)
[2018-07-06] MEDS: ESCITALOPRAM OXALATE 20 MG TABLET (FP) PO SCH (10:09)
[2018-07-06] MEDS: hydrOXYzine PAMOATE 50 MG CAPSULE (FP) PO PRN ×2 (10:10→21:06)
[2018-07-06] MEDS: IBUPROFEN 400 MG TABLET (FP) PO PRN ×2 (10:10→21:08)
[2018-07-06] MEDS: THIAMINE HCL 100 MG TABLET (FP) PO SCH (21:05)
[2018-07-06] MEDS: MIRTAZAPINE 15 MG TABLET (FP) PO SCH (21:06)
[2018-07-07] MEDS: METHOCARBAMOL 500 MG TABLET PO SCH ×3 (06:13→21:10)
[2018-07-07] MEDS: ESCITALOPRAM OXALATE 20 MG TABLET (FP) PO SCH (09:46)
[2018-07-07] MEDS: BUDESONIDE/FORMETEROL FUMARATE 80/4.5 mcg INHALER IH SCH ×2 (09:46→21:11)
[2018-07-07] MEDS: NICOTINE 21 MG/24 HOURS TOPICAL PATCH TD SCH (09:46)
[2018-07-07] MEDS: MUPIROCIN 2% TOPICAL OINTMENT 22 GM TUBE TP SCH ×2 (09:46→21:11)
[2018-07-07] MEDS: GABAPENTIN 300 MG CAPSULE (FP) PO SCH ×2 (09:46→21:09)
[2018-07-07] MEDS: hydrOXYzine PAMOATE 50 MG CAPSULE (FP) PO PRN ×2 (09:48→21:12)
[2018-07-07] MEDS: IBUPROFEN 400 MG TABLET (FP) PO PRN ×2 (09:48→21:12)
[2018-07-07] MEDS: PRENATAL VITAMINS W/ FOLIC ACID TABLET (FP) PO SCH (10:36)
[2018-07-07] MEDS: SULFAMETHOXAZOLE/TRIMETHOPRIM 800MG/160MG D.S. TABLET PO SCH ×2 (10:42→21:09)
[2018-07-07] MEDS: THIAMINE HCL 100 MG TABLET (FP) PO SCH (21:08)
[2018-07-07] MEDS: MIRTAZAPINE 15 MG TABLET (FP) PO SCH (21:09)
[2018-07-08] MEDS: METHOCARBAMOL 500 MG TABLET PO SCH ×3 (06:33→21:31)
[2018-07-08] MEDS: hydrOXYzine PAMOATE 50 MG CAPSULE (FP) PO PRN ×2 (09:47→21:28)
[2018-07-08] MEDS: IBUPROFEN 400 MG TABLET (FP) PO PRN ×2 (09:47→21:28)
[2018-07-08] MEDS: SULFAMETHOXAZOLE/TRIMETHOPRIM 800MG/160MG D.S. TABLET PO SCH ×2 (09:48→21:29)
[2018-07-08] MEDS: NICOTINE 21 MG/24 HOURS TOPICAL PATCH TD SCH (09:48)
[2018-07-08] MEDS: ESCITALOPRAM OXALATE 20 MG TABLET (FP) PO SCH (09:48)
[2018-07-08] MEDS: MUPIROCIN 2% TOPICAL OINTMENT 22 GM TUBE TP SCH ×2 (09:48→21:27)
[2018-07-08] MEDS: GABAPENTIN 300 MG CAPSULE (FP) PO SCH ×2 (09:48→21:29)
[2018-07-08] MEDS: PRENATAL VITAMINS W/ FOLIC ACID TABLET (FP) PO SCH (09:50)
[2018-07-08] MEDS: BUDESONIDE/FORMETEROL FUMARATE 80/4.5 mcg INHALER IH SCH ×2 (09:50→21:27)
[2018-07-08] MEDS: THIAMINE HCL 100 MG TABLET (FP) PO SCH (21:29)
[2018-07-08] MEDS: MIRTAZAPINE 15 MG TABLET (FP) PO SCH (21:29)
[2018-07-09] MEDS: METHOCARBAMOL 500 MG TABLET PO SCH ×3 (06:04→21:43)
[2018-07-09] MEDS: ESCITALOPRAM OXALATE 20 MG TABLET (FP) PO SCH (09:53)
[2018-07-09] MEDS: IBUPROFEN 400 MG TABLET (FP) PO PRN ×2 (09:53→21:45)
[2018-07-09] MEDS: NICOTINE 21 MG/24 HOURS TOPICAL PATCH TD SCH (09:53)
[2018-07-09] MEDS: PRENATAL VITAMINS W/ FOLIC ACID TABLET (FP) PO SCH (09:53)
[2018-07-09] MEDS: SULFAMETHOXAZOLE/TRIMETHOPRIM 800MG/160MG D.S. TABLET PO SCH ×2 (09:53→21:44)
[2018-07-09] MEDS: GABAPENTIN 300 MG CAPSULE (FP) PO SCH ×2 (09:53→21:40)
[2018-07-09] MEDS: hydrOXYzine PAMOATE 50 MG CAPSULE (FP) PO PRN ×2 (09:53→21:45)
[2018-07-09] MEDS: BUDESONIDE/FORMETEROL FUMARATE 80/4.5 mcg INHALER IH SCH ×2 (09:55→21:44)
[2018-07-09] MEDS: MUPIROCIN 2% TOPICAL OINTMENT 22 GM TUBE TP SCH ×2 (09:56→21:44)
--- NOTE | 2018-07-09 15:12 | PN ---
S Progress Note (SOAP) Subjective: Client is ready for discharge tomorrow. Objective: 07/09/18 15:09 A+O X 3, neurologically intact, Lungs clear, HR -regular, S1 S2 audible. Right forearm abscess improved; skin still discolored, but no drainage. Warm to touch , but temperature equal to left. 07/09/18 15:13 07/09/18 15:14 Vital Signs (72 hours) 07/06/18 07/07/18 07/07/18 20:48 00:30 03:30 Temperature Pulse Rate 71 Respiratory 18 18 18 Rate Blood Pressure 110/64 07/07/18 07/07/18 07/08/18 06:56 20:28 00:30 Temperature 97.2 F L Pulse Rate 78 77 Respiratory 18 16 18 Rate Blood Pressure 87/64 L 107/68 07/08/18 07/08/18 07/09/18 03:30 06:54 03:30 Temperature 97.4 F L Pulse Rate 66 Respiratory 18 18 18 Rate Blood Pressure 106/61 07/09/18 06:39 Temperature 98.1 F Pulse Rate 69 Respiratory 18 Rate Blood Pressure 99/64 Assessment: Medically stable for discharge Diagnoses: Opioid Dependence, chronic PTSD Anscess of Right arm, chronic Asthma 07/09/18 15:14 Plan: Patient medically stable for discharge. Will receive aftercare at [facility]. Bactrim & Bactroban prescription to complete treatment Symbicort & Motrin prescriptions electronically transmitted to pharmacy. Patient does not have a primary care provider. Encouraged patient to arrange one for follow up with abscess care.
[2018-07-09] MEDS: THIAMINE HCL 100 MG TABLET (FP) PO SCH (21:42)
[2018-07-09] MEDS: MIRTAZAPINE 15 MG TABLET (FP) PO SCH (21:43)
--- NOTE | 2018-07-10 06:20 | PN ---
S Progress Note Note: Patient is scheduled for discharge today. Scripts for 30 days supply of medications(Lexapro, Remeron, Gabapentin, Prazosin) are electronically transmitted to [facility] at [address] [place] [address] [address] [place] [id number]
[2018-07-10] MEDS: METHOCARBAMOL 500 MG TABLET PO SCH (06:29)
[2018-07-10 06:57] VITALS: BP 95/63; PULSE 76; TEMP 97.5
[2018-07-10] MEDS: GABAPENTIN 300 MG CAPSULE (FP) PO SCH (09:14)
[2018-07-10] MEDS: BUDESONIDE/FORMETEROL FUMARATE 80/4.5 mcg INHALER IH SCH (09:14)
[2018-07-10] MEDS: PRENATAL VITAMINS W/ FOLIC ACID TABLET (FP) PO SCH (09:14)
[2018-07-10] MEDS: SULFAMETHOXAZOLE/TRIMETHOPRIM 800MG/160MG D.S. TABLET PO SCH (09:14)
[2018-07-10] MEDS: ESCITALOPRAM OXALATE 20 MG TABLET (FP) PO SCH (09:14)
[2018-07-10] MEDS: MUPIROCIN 2% TOPICAL OINTMENT 22 GM TUBE TP SCH (09:15)
[2018-07-10] MEDS: NICOTINE 21 MG/24 HOURS TOPICAL PATCH TD SCH (09:15)
== END 2018-07-10 09:30 | disposition home or self-care (01) | DRG 772 ==
LOC: YASAS 12:49 → Y3W 12:52
PROVIDERS: ADMIT Neuromusculoskeletal Medicine & OMM; ATTEND Neuromusculoskeletal Medicine & OMM
PROC: HZ42ZZZ Group Counseling for Substance Abuse Treatment, Cognitive-Behavioral (ICD-10-PCS; principal; 2018-06-28)
DX: F11.20 Opioid dependence, uncomplicated (principal); F14.20 Cocaine dependence, uncomplicated; F17.210 Nicotine dependence, cigarettes, uncomplicated; F43.10 Post-traumatic stress disorder, unspecified; F32.9 Major depressive disorder, single episode, unspecified; F60.9 Personality disorder, unspecified; J45.909 Unspecified asthma, uncomplicated; L02.413 Cutaneous abscess of right upper limb; L03.113 Cellulitis of right upper limb; R63.4 Abnormal weight loss; Z91.013 Allergy to seafood; Z88.1 Allergy status to other antibiotic agents

== ENCOUNTER 2019-04-29 11:24 | Inpatient (IN) | payer OTHER ==
--- NOTE | 2019-04-29 12:27 | PN ---
[facility] Progress Note Note: COWS 12 33 y.o. female pt requesting detox from heroin use , reports 1-2 bundles/day IV , latest use yesterday . pt w/ right forearm area of edema, erythema, induration and tenderness to palpation @ IVDU site . will transfer to [facility] ED for further evaluation & tx , attempted to give report multiple times, on hold and no answer until 1:09 p.m. received call from ER attending, pt refused iv Abx , will be sent back w/ instructions for p.o. antibiotics.
--- NOTE | 2019-04-29 16:08 | HP ---
COWS - Scale Resting Pulse: 1= OR 81-100 Sweatin= Chills/Flushing Restless Observation: 1= Difficult to Sit Still Pupil Size: 1= Pupils >than Normal Bone or Joint Aches: 2= Severe Diffuse Aches Runny Nose/ Eye Tearin= Nasal Congestion GI Upset > 30mins: 3= Vomiting/Diarrhea Tremor Observation: 2= Slight Tremor Visible Yawning Observation: 0= None Anxiety or Irritability: 2=Irritable/Anxious Goose Flesh Skin: 3=Piloerection COWS Score: 17 CIWA Score - Admission Criteria OASAS Guidelines: Admission for Medically Managed Detox: Requires at least one of the followin. CIWA greater than 12 2. Seizures within the past 24 hours 3. Delirium tremens within the past 24 hours 4. Hallucinations within the past 24 hours 5. Acute intervention needed for co occurring medical disorder 6. Acute intervention needed for co occurring psychiatric disorder 7. Severe withdrawal that cannot be handled at a lower level of care (continued vomiting, continued diarrhea, abnormal vital signs) requiring intravenous medication and/or fluids 8. Admitting History and Physical - Admission History of Present Illness: 33 yo F PMH presents for detox from heroin. Heroin: first use 2008. 1-2 bundle/ day. last use yesterday 15 bags. last overdose > 1 yr . does not have a narcan kit cocaine: first use 2008. 3-4/week. smokes a 20. last use yesterday. fentanyl in dope uses IV Last here 05/2018. started using again 01/2019. PSH: thoracotomy, neck surgery , C sections Meds: Lexapro, rameron, gabapentin , prazoxyn , ibuprofen rite waltdallin Lives in apartment in [place], lives with aunt who supports her. 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 Allergies/Adverse Reactions: Allergies Allergy/AdvReac Type Severity Reaction Status Date / Time fish derived Allergy Verified 06/24/18 09:32 levofloxacin [From Levaquin] Allergy Verified 06/24/18 09:32 fish Allergy Uncoded 06/24/18 09:32 - Ebola screening Have you traveled outside of the country in the last 21 days: No Have you had contact with anyone from an Ebola affected area: No Do you have a fever: No Patient History - Patient Medical History Hx Anemia: No Hx Asthma: Yes Hx Chronic Obstructive Pulmonary Disease (COPD): No Hx Cancer: No Hx Cardiac Disorders: No Hx Congestive Heart Failure: No Hx Hypertension: No Hx Hypercholesterolemia: No Hx Pacemaker: No HX Cerebrovascular Accident: No Hx Seizures: No Hx Dementia: No Hx Diabetes: No Hx Gastrointestinal Disorders: No Hx Liver Disease: No Hx Genitourinary Disorders: No Hx Sexually Transmitted Disorders: No Hx Renal Disease (ESRD): No Hx Thyroid Disease: No Hx Human Immunodeficiency Virus (HIV): No (negative last 05/21 negative) Hx Hepatitis C: Yes (no treatment) Hx Depression: Yes Hx Suicide Attempt: No Hx Bipolar Disorder: No Hx Schizophrenia: No - Patient Surgical History Past Surgical History: No Hx Neurologic Surgery: No Hx Cataract Extraction: No Hx Cardiac Surgery: No Hx Lung Surgery: No Hx Breast Surgery: No Hx Breast Biopsy: No Hx Abdominal Surgery: No Hx Appendectomy: No Hx Cholecystectomy: No Hx Genitourinary Surgery: No Hx Section: Yes (x 4,last 10 years) Hx Orthopedic Surgery: No Other Surgical History: 4 C section, mrsa 2012, right lung sx,- thoracotomy 2009 Anesthesia Reaction: No - PPD History Date: 05/08/18 Results: 0mm - Reproductive History Last Menstrual Period: 06/10/18 - Smoking Cessation Smoking history: Current every day smoker Have you smoked in the past 12 months: Yes Aproximately how many cigarettes per day: 40 Hx Chewing Tobacco Use: No Initiated information on smoking cessation: Yes 'Breaking Loose' booklet given: 04/29/19 Admission Physical Exam S - Physical General Appearance: Yes: No Apparent Distress, Appropriately Dressed, Tremorous , Irritable, Anxious HEENTM: Yes: EOMI, Hearing grossly Normal, Normal ENT Inspection, Normocephalic , Normal Voice, FIDEL Respiratory: Yes: Chest Non-Tender, Lungs Clear, Normal Breath Sounds, No Respiratory Distress, No Accessory Muscle Use Neck: Yes: No masses,lesions,Nodules Cardiology: Yes: Regular Rhythm, Regular Rate, S1, S2. No: JVD, Murmur Abdominal: Yes: Normal Bowel Sounds, Non Tender, Soft. No: Distended Back: No: CVA Tenderness Extremities: Yes: Swelling, Erythema (RUE). No: Calf Tenderness Neurological: Yes: executive team leader II-XII NML intact, Fully Oriented Breathalyzer - Breathalyzer Breathalyzer: 0 Urine Drug Screen - Test Device Lot number: [id number] Expiration date: 10/30/20 - Control Is test valid?: Yes - Results Drug screen NEGATIVE: No Urine drug screen results: PRESTON-Cocaine, FEN-Fentanyl, MOP-Opiates Inpatient Rehab Admission - Rehab Decision to Admit Inpatient rehab admission?: No
[2019-04-29] MEDS ORDERED: MELATONIN 5 MG TABLETS PO PRN (16:20)
[2019-04-29] MEDS ORDERED: MENTHOL/PHENOL 1 EACH UD MM PRN (16:20)
[2019-04-29] MEDS ORDERED: ACETAMINOPHEN 325 MG TABLET (FP) PO PRN ×2 (16:20)
[2019-04-29] MEDS ORDERED: MAG HYDROX/AL HYDROX/SIMETH 30 ML UNIT-DOSE CUP PO PRN (16:20)
[2019-04-29] MEDS ORDERED: MAGNESIUM CITRATE 300 ML BOTTLE PO PRN (16:20)
[2019-04-29] MEDS ORDERED: MAGNESIUM HYDROX 2400MG/30ML ORAL SUSPENSION 30 ML CUP PO PRN (16:20)
[2019-04-29] MEDS ORDERED: cloNIDine HCL 0.1 MG TABLET PO PRN (16:20)
[2019-04-29] MEDS ORDERED: BISMUTH SUBSALICYLATE 524 MG/30 ML UD PO PRN (16:20)
--- NOTE | 2019-04-29 16:36 | PN ---
Teaching Attending Note Name of Resident: Shonda Richardson ATTENDING PHYSICIAN STATEMENT I saw and evaluated the patient. I reviewed the resident's note and discussed the case with the resident. I agree with the resident's findings and plan as documented. SUBJECTIVE: 33 y.o. female pt here for heroin detox, s/p er evaluation for R ue abscess/ US negative, sent back for detox on abx per report Bactrim and Keflex. Heroin: since 2008. 1-2 bundle/ day IV . last use yesterday 15 bags. last overdose > 1 yr . does not have a narcan kit cocaine: first use 2008. 3-4/week. smokes a 20. last use yesterday. Last here 05/2018. started using again 01/2019. PSH: thoracotomy, neck surgery , C sections OBJECTIVE:wnwd ASSESSMENT AND PLAN: OUD - methadone detox. R forearm cellulitis - ABx
[2019-04-29 17:14] VITALS: BMI 27.0
[2019-04-29] MEDS ORDERED: METHADONE HCL 10 MG TABLET (FOR DETOX USE ONLY) PO ONE (18:00)
[2019-04-29] MEDS: CEPHALEXIN MONOHYDRATE 500 MG CAPSULE (UD) PO SCH (22:30)
[2019-04-29] MEDS: THIAMINE HCL 100 MG TABLET (FP) PO SCH (22:30)
[2019-04-29] MEDS: hydrOXYzine PAMOATE 25 MG CAPSULE (FP) PO PRN (22:32)
[2019-04-30] MEDS ORDERED: METHADONE (DETOX) 20 MG, METHADONE (DETOX) 5 MG PO ONE (10:00)
[2019-04-30] MEDS ORDERED: METHADONE HCL 10 MG TABLET (FOR DETOX USE ONLY) ONE (10:02)
[2019-04-30] MEDS ORDERED: METHADONE HCL 5 MG TABLET (FOR DETOX USE ONLY) ONE (10:02)
[2019-04-30] MEDS: hydrOXYzine PAMOATE 25 MG CAPSULE (FP) PO PRN (10:06)
[2019-04-30] MEDS: METHOCARBAMOL 500 MG TABLET PO PRN (10:06)
[2019-04-30] MEDS: CEPHALEXIN MONOHYDRATE 500 MG CAPSULE (UD) PO SCH ×2 (10:06→23:27)
[2019-04-30] MEDS: PRENATAL VITAMINS W/ FOLIC ACID TABLET (FP) PO SCH (10:07)
[2019-04-30] MEDS ORDERED: ONDANSETRON *ODT* 4 MG TABLET SL ONE (11:01)
[2019-04-30] MEDS ORDERED: LOPERAMIDE HCL 2 MG CAPSULE PO ONE (11:02)
--- NOTE | 2019-04-30 11:06 | PN ---
BHS COWS - Scale Resting Pulse: 0= [place] 80 or Below Sweatin= Chills/Flushing Restless Observation: 0= Sits Still Pupil Size: 1= Pupils >than Normal Bone or Joint Aches: 1= Mild Discomfort Runny Nose/ Eye Tearin= Nasal Congestion GI Upset > 30mins: 2= Nausea/Diarrhea Tremor Observation of Outstretched Hands: 1= Tremor [place], Not Seen Yawning Observation: 1= 1-2x During Session Anxiety or Irritability: 2=Irritable/Anxious Goose Flesh Skin: 3=Piloerection COWS Score: 13 BHS Progress Note (SOAP) Subjective: 33 years old female admitted on 04/29/19 for opiate withdrawal sx management treating with methadone detox regiment feeling ok today but loose stool x 1 imodium 8 mg po x 1 feeling nausea zofran 8mg sl x 1 right forearm abscess IV heroin continue keflex and warm compress report smoking one pack of cigarette daily 21 mg nicotine placement Objective: 04/30/19 11:08 Vital Signs Temperature 97.8 F 04/30/19 08:24 Pulse Rate 51 L 04/30/19 08:24 Respiratory Rate 18 04/30/19 08:24 Blood Pressure 103/58 L 04/30/19 08:24 O2 Sat by Pulse Oximetry (%) 04/30/19 11:08 lab pending Assessment: 04/30/19 11:08 opiate withdrawal Plan: methadone regiment
[2019-04-30] MEDS: NICOTINE 21 MG/24 HOURS TOPICAL PATCH TD SCH (12:16)
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
[2019-04-30] MEDS ORDERED: TRIMETHOBENZAMIDE HCL 200MG/2ML INJ IM ONE (19:04)
--- NOTE | 2019-04-30 19:07 | PN ---
S Progress Note Note: pt w/ c/o nausea , had ondasentron 8 mg today , states had dark d/c from right forearm wound today . denies SOB , CP any other c/o . Vital Signs - 24 hr 04/29/19 04/30/19 04/30/19 21:23 02:02 05:10 Temperature 98.5 F 98.3 F Pulse Rate 65 60 Respiratory 18 18 18 Rate Blood Pressure 102/62 91/62 04/30/19 04/30/19 04/30/19 07:14 08:24 12:13 Temperature 97.8 F 97.7 F Pulse Rate 51 L 51 L Respiratory 18 18 18 Rate Blood Pressure 103/58 L 98/63 04/30/19 17:41 Temperature 97.8 F Pulse Rate 55 L Respiratory 18 Rate Blood Pressure 101/52 L O : right forearm w/ area of erythema decreased from previous P : Tigan i.m. x once antibiotics as per hospital d/c home meds : Albuterol, Symbicort and prn nebulizer tx . psychiatric meds as per psychiatry
[2019-04-30] MEDS ORDERED: ALBUTEROL SO4 8 GM HFA INHALER IH PRN (19:23)
[2019-04-30] MEDS ORDERED: ALBUTEROL SO4 2.5/IPRATROPIUM 0.5 INH SOL 3 ML VIAL.NEB. NEB PRN (19:23)
[2019-04-30] MEDS ORDERED: CEPHALEXIN MONOHYDRATE 500 MG CAPSULE (UD) PO ONE (19:24)
[2019-04-30] MEDS: THIAMINE HCL 100 MG TABLET (FP) PO SCH (22:28)
[2019-04-30] MEDS: BUDESONIDE/FORMETEROL FUMARATE 80/4.5 mcg INHALER IH SCH (22:28)
[2019-04-30] MEDS: SULFAMETHOXAZOLE/TRIMETHOPRIM 800MG/160MG D.S. TABLET PO SCH (22:29)
[2019-04-30] MEDS: MIRTAZAPINE 15 MG TABLET (FP) PO SCH (22:29)
[2019-04-30] MEDS: MUPIROCIN 2% TOPICAL OINTMENT 22 GM TUBE TP SCH (22:31)
[2019-05-01] MEDS: CEPHALEXIN MONOHYDRATE 500 MG CAPSULE (UD) PO SCH ×4 (06:50→23:10)
[2019-05-01] MEDS ORDERED: ONDANSETRON *ODT* 4 MG TABLET SL ONE (09:15)
--- NOTE | 2019-05-01 09:21 | PN ---
BHS COWS - Scale Resting Pulse: 0= [place] 80 or Below Sweatin= Chills/Flushing Restless Observation: 0= Sits Still Pupil Size: 1= Pupils >than Normal Bone or Joint Aches: 1= Mild Discomfort Runny Nose/ Eye Tearin= Nasal Congestion GI Upset > 30mins: 2= Nausea/Diarrhea (no diarrhea) Tremor Observation of Outstretched Hands: 2= Slight Tremor Visible Yawning Observation: 1= 1-2x During Session Anxiety or Irritability: 1=Feels Anxious/Irritable Goose Flesh Skin: 0=Smooth Skin COWS Score: 10 BHS Progress Note (SOAP) Subjective: 33 years old female admitted on 04/29/19 for opiate withdrawal sx management treating with methadone detox regiment keflex 500mg po q6h for right forearm IV heroin abscess c/o nausea after breakfast zofran 8 mg sl x 1 discussed medication assisted treatment program Objective: 05/01/19 09:22 Vital Signs Temperature 97.2 F L 05/01/19 05:00 Pulse Rate 50 L 05/01/19 05:00 Respiratory Rate 20 05/01/19 05:00 Blood Pressure 93/62 05/01/19 05:00 O2 Sat by Pulse Oximetry (%) lab pending Assessment: 05/01/19 09:22 opiate withdrawal Plan: methadone regiment pharmacy picking tech narcan from pharmacy upon discharge
[2019-05-01] MEDS ORDERED: ESCITALOPRAM OXALATE 10 MG TABLET ONE (09:49)
[2019-05-01] MEDS ORDERED: METHADONE HCL 10 MG TABLET (FOR DETOX USE ONLY) PO ONE (10:00)
[2019-05-01] MEDS: PRENATAL VITAMINS W/ FOLIC ACID TABLET (FP) PO SCH (10:04)
[2019-05-01] MEDS: ESCITALOPRAM OXALATE 20 MG TABLET PO SCH (10:04)
[2019-05-01] MEDS: SULFAMETHOXAZOLE/TRIMETHOPRIM 800MG/160MG D.S. TABLET PO SCH ×2 (10:05→22:23)
[2019-05-01] MEDS: BUDESONIDE/FORMETEROL FUMARATE 80/4.5 mcg INHALER IH SCH ×2 (10:05→22:32)
[2019-05-01] MEDS: GABAPENTIN 300 MG CAPSULE PO SCH ×2 (10:05→22:23)
[2019-05-01] MEDS: MUPIROCIN 2% TOPICAL OINTMENT 22 GM TUBE TP SCH ×2 (10:08→22:22)
[2019-05-01] MEDS: NICOTINE 21 MG/24 HOURS TOPICAL PATCH TD SCH (10:08)
[2019-05-01 10:15] LABS: HEMATOCRIT 34.4 % (32.4-45.2); HEMOGLOBIN 11.5 GM/dL (10.7-15.3); MCH 28.9 pg (25.7-33.7); MCHC 33.6 g/dl (32.0-36.0); MEAN CELL VOLUME 85.9 fl (80-96); MEAN PLT VOLUME 8.3 fl (7.5-11.1); PLATELET COUNT 226 K/MM3 (134-434); RDW 13.2 % (11.6-15.6); WHITE BLOOD COUNT 4.9 K/mm3 (4.0-10.0)
[2019-05-01 10:22] LABS: ALBUMIN 3.1 g/dl (3.4-5.0); BILIRUBIN,TOTAL 0.2 mg/dL (0.2-1); BLOOD UREA NITROGEN 14.1 mg/dL (7-18); CALCIUM 8.8 mg/dL (8.5-10.1); CREATININE 0.9 mg/dL (0.55-1.3); POTASSIUM 4.2 mmol/L (3.5-5.1); TOT PROT 6.5 g/dl (6.4-8.2)
[2019-05-01] MEDS: IBUPROFEN 400 MG TABLET (FP) PO PRN (17:15)
[2019-05-01] MEDS ORDERED: TRIMETHOBENZAMIDE HCL 300 MG CAPSULE PO PRN (19:11)
--- NOTE | 2019-05-01 19:17 | PN ---
S Progress Note Note: pt c/o nausea , some relief w/ Zofran and Tigan i.m. . Reports poor appetite , nausea, abdominal pain and diarrhea . Denies CP/ SOB , rpeorts poor appetite and minimal p.o. intake today of fluids . Reports vomiting yesterday . Vital Signs - 24 hr 04/30/19 05/01/19 05/01/19 22:06 00:30 03:30 Temperature 98.3 F Pulse Rate 54 L Respiratory 18 18 18 Rate Blood Pressure 92/62 05/01/19 05/01/19 05/01/19 05:00 08:49 18:48 Temperature 97.2 F L 97.1 F L 98.1 F Pulse Rate 50 L 67 51 L Respiratory 20 18 16 Rate Blood Pressure 93/62 101/66 98/61 O : CV RRR S1 S2 bradycardia ( baseline per MR and pt ) ABd : soft mild epigastric tenderness Resp : no distress noted, CTA b/L Ext : right FA w/ area of cellulitis unchanged from yesterday . P : Tigan i.m. x once , Tigan p.o. when available from pharmacy .
[2019-05-01] MEDS ORDERED: TRIMETHOBENZAMIDE HCL 200MG/2ML INJ IM ONE (19:45)
[2019-05-01] MEDS: THIAMINE HCL 100 MG TABLET (FP) PO SCH (22:23)
[2019-05-01] MEDS: MIRTAZAPINE 15 MG TABLET (FP) PO SCH (22:23)
[2019-05-02] MEDS: CEPHALEXIN MONOHYDRATE 500 MG CAPSULE (UD) PO SCH ×4 (05:45→23:18)
[2019-05-02] MEDS ORDERED: METHADONE HCL 10 MG TABLET (FOR DETOX USE ONLY) ONE (09:45)
[2019-05-02] MEDS ORDERED: METHADONE HCL 5 MG TABLET (FOR DETOX USE ONLY) ONE (09:45)
[2019-05-02] MEDS ORDERED: ESCITALOPRAM OXALATE 10 MG TABLET ONE (09:45)
[2019-05-02] MEDS: SULFAMETHOXAZOLE/TRIMETHOPRIM 800MG/160MG D.S. TABLET PO SCH ×2 (09:50→22:02)
[2019-05-02] MEDS: BUDESONIDE/FORMETEROL FUMARATE 80/4.5 mcg INHALER IH SCH ×2 (09:50→22:02)
[2019-05-02] MEDS: ESCITALOPRAM OXALATE 20 MG TABLET PO SCH (09:51)
[2019-05-02] MEDS: NICOTINE 21 MG/24 HOURS TOPICAL PATCH TD SCH (09:51)
[2019-05-02] MEDS: PRENATAL VITAMINS W/ FOLIC ACID TABLET (FP) PO SCH (09:51)
[2019-05-02] MEDS: MUPIROCIN 2% TOPICAL OINTMENT 22 GM TUBE TP SCH ×2 (09:51→22:02)
[2019-05-02] MEDS: GABAPENTIN 300 MG CAPSULE PO SCH (09:51)
[2019-05-02] MEDS ORDERED: METHADONE (DETOX) 10 MG, METHADONE (DETOX) 5 MG PO ONE (10:00)
--- NOTE | 2019-05-02 12:49 | PN ---
BHS COWS - Scale Resting Pulse: 0= [place] 80 or Below Sweatin= No chills or Flushing Restless Observation: 0= Sits Still Pupil Size: 0= Normal to Room Light Bone or Joint Aches: 2= Severe Diffuse Aches Runny Nose/ Eye Tearin= Nasal Congestion GI Upset > 30mins: 0= None Tremor Observation of Outstretched Hands: 0= None Yawning Observation: 0= None Anxiety or Irritability: 1=Feels Anxious/Irritable Goose Flesh Skin: 0=Smooth Skin COWS Score: 4 BHS Progress Note (SOAP) Subjective: Patient seen in bed with some continued complaints of withdrawal. Bilateral knee pains and muscular calf pains. Some mild nausea persists which has been treated last night with Zofran and it helped. Objective: Vitals: BP: 98/62 P:53 R:18 T:97.0 Laboratory 05/01/19 05/01/19 05/01/19 08:00 08:00 08:00 WBC 4.9 K/mm3 K/mm3 (4.0-10.0) RBC 4.00 M/mm3 M/mm3 (3.60-5.2) Hgb 11.5 GM/dL GM/dL (10.7-15.3) Hct 34.4 % % (32.4-45.2) MCV 85.9 fl fl (80-96) MCH 28.9 pg pg (25.7-33.7) MCHC 33.6 g/dl g/dl (32.0-36.0) RDW 13.2 % D % (11.6-15.6) Plt Count 226 K/MM3 K/MM3 (134-434) MPV 8.3 fl fl (7.5-11.1) Sodium 140 mmol/L mmol/L (136-145) Potassium 4.2 mmol/L mmol/L (3.5-5.1) Chloride 106 mmol/L mmol/L (98-107) Carbon Dioxide 28 mmol/L mmol/L (21-32) Anion Gap 7 MMOL/L L MMOL/L (8-16) BUN 14.1 mg/dL mg/dL (7-18) Creatinine 0.9 mg/dL mg/dL (0.55-1.3) Est GFR (CKD-EPI)AfAm 96.01 Est GFR (CKD-EPI)NonAf 82.84 Random Glucose 85 mg/dL mg/dL (74-106) Calcium 8.8 mg/dL mg/dL (8.5-10.1) Total Bilirubin 0.2 mg/dL mg/dL (0.2-1) AST 10 U/L L U/L (15-37) ALT 15 U/L U/L (13-61) Alkaline Phosphatase 51 U/L U/L (45-117) Total Protein 6.5 g/dl g/dl (6.4-8.2) Albumin 3.1 g/dl L g/dl (3.4-5.0) RPR Titer Nonreactive (NONREACTIVE) 05/02/19 12:46 Assessment: 05/02/19 12:48 1. Opioid dependence with withdrawals 2. Labs noted and largely within normal parameters. Plan: 1. Continue methadone detox protocol 2. Needs disposition upon discharge. Counselor to follow up with discharge planning. Dr. Regalado
[2019-05-02] MEDS: hydrOXYzine PAMOATE 25 MG CAPSULE (FP) PO PRN ×2 (13:33→22:03)
[2019-05-02] MEDS: MIRTAZAPINE 15 MG TABLET (FP) PO SCH (22:02)
[2019-05-02] MEDS: THIAMINE HCL 100 MG TABLET (FP) PO SCH (22:02)
[2019-05-02] MEDS: METHOCARBAMOL 500 MG TABLET PO PRN (22:03)
[2019-05-03] MEDS: CEPHALEXIN MONOHYDRATE 500 MG CAPSULE (UD) PO SCH ×4 (06:29→23:05)
[2019-05-03] MEDS ORDERED: ESCITALOPRAM OXALATE 10 MG TABLET ONE (09:25)
[2019-05-03] MEDS ORDERED: METHADONE HCL 10 MG TABLET (FOR DETOX USE ONLY) PO ONE (10:00)
[2019-05-03] MEDS: PRENATAL VITAMINS W/ FOLIC ACID TABLET (FP) PO SCH (10:33)
[2019-05-03] MEDS: ESCITALOPRAM OXALATE 20 MG TABLET PO SCH (10:34)
[2019-05-03] MEDS: MUPIROCIN 2% TOPICAL OINTMENT 22 GM TUBE TP SCH ×2 (10:34→22:20)
[2019-05-03] MEDS: SULFAMETHOXAZOLE/TRIMETHOPRIM 800MG/160MG D.S. TABLET PO SCH ×2 (10:34→22:20)
[2019-05-03] MEDS: NICOTINE 21 MG/24 HOURS TOPICAL PATCH TD SCH (10:36)
[2019-05-03] MEDS: BUDESONIDE/FORMETEROL FUMARATE 80/4.5 mcg INHALER IH SCH ×2 (10:37→22:18)
[2019-05-03] MEDS: hydrOXYzine PAMOATE 25 MG CAPSULE (FP) PO PRN ×2 (10:39→17:38)
[2019-05-03] MEDS: IBUPROFEN 400 MG TABLET (FP) PO PRN (13:21)
--- NOTE | 2019-05-03 14:13 | PN ---
BHS COWS - Scale Resting Pulse: 0= [place] 80 or Below Sweatin= No chills or Flushing Restless Observation: 0= Sits Still Pupil Size: 0= Normal to Room Light Bone or Joint Aches: 1= Mild Discomfort Runny Nose/ Eye Tearin= None GI Upset > 30mins: 0= None Tremor Observation of Outstretched Hands: 0= None Yawning Observation: 0= None Anxiety or Irritability: 2=Irritable/Anxious Goose Flesh Skin: 0=Smooth Skin COWS Score: 3 BHS Progress Note (SOAP) Subjective: c/o mild withdrawal symptoms. Objective: 05/03/19 14:11 Vital Signs 05/03/19 05/03/19 06:58 08:54 Temperature 97 F L 96.9 F L Pulse Rate 59 L 49 L Respiratory 16 18 Rate Blood Pressure 95/66 96/57 L Laboratory Last Values WBC 4.9 K/mm3 (4.0-10.0) 05/01/19 08:00 RBC 4.00 M/mm3 (3.60-5.2) 05/01/19 08:00 Hgb 11.5 GM/dL (10.7-15.3) 05/01/19 08:00 Hct 34.4 % (32.4-45.2) 05/01/19 08:00 MCV 85.9 fl (80-96) 05/01/19 08:00 MCH 28.9 pg (25.7-33.7) 05/01/19 08:00 MCHC 33.6 g/dl (32.0-36.0) 05/01/19 08:00 RDW 13.2 % (11.6-15.6) D 05/01/19 08:00 Plt Count 226 K/MM3 (134-434) 05/01/19 08:00 MPV 8.3 fl (7.5-11.1) 05/01/19 08:00 Sodium 140 mmol/L (136-145) 05/01/19 08:00 Potassium 4.2 mmol/L (3.5-5.1) 05/01/19 08:00 Chloride 106 mmol/L (98-107) 05/01/19 08:00 Carbon Dioxide 28 mmol/L (21-32) 05/01/19 08:00 Anion Gap 7 MMOL/L (8-16) L 05/01/19 08:00 BUN 14.1 mg/dL (7-18) 05/01/19 08:00 Creatinine 0.9 mg/dL (0.55-1.3) 05/01/19 08:00 Est GFR (CKD-EPI)AfAm 96.01 05/01/19 08:00 Est GFR (CKD-EPI)NonAf 82.84 05/01/19 08:00 Random Glucose 85 mg/dL (74-106) 05/01/19 08:00 Calcium 8.8 mg/dL (8.5-10.1) 05/01/19 08:00 Total Bilirubin 0.2 mg/dL (0.2-1) 05/01/19 08:00 AST 10 U/L (15-37) L 05/01/19 08:00 ALT 15 U/L (13-61) 05/01/19 08:00 Alkaline Phosphatase 51 U/L (45-117) 05/01/19 08:00 Total Protein 6.5 g/dl (6.4-8.2) 05/01/19 08:00 Albumin 3.1 g/dl (3.4-5.0) L 05/01/19 08:00 RPR Titer Nonreactive (NONREACTIVE) 05/01/19 08:00 Labs noted. Assessment: 05/03/19 14:12 AOX3, in no acute respiratory distress. Full ROM, ambulating in the unit. Mild Withdrawal symptoms. For d/c tomorrow. Plan: continue detox Antibiotic prescription sent to pt's preferred pharmacy to complete regimen. D/C in AM.
[2019-05-03] MEDS: THIAMINE HCL 100 MG TABLET (FP) PO SCH (22:19)
[2019-05-03] MEDS: METHOCARBAMOL 500 MG TABLET PO PRN (22:19)
[2019-05-03] MEDS: MIRTAZAPINE 15 MG TABLET (FP) PO SCH (22:19)
[2019-05-04] MEDS: CEPHALEXIN MONOHYDRATE 500 MG CAPSULE (UD) PO SCH (05:45)
[2019-05-04] MEDS ORDERED: METHADONE HCL 5 MG TABLET (FOR DETOX USE ONLY) PO ONE (06:00)
[2019-05-04 06:39] VITALS: BP 97/60; PULSE 54; TEMP 97.3
--- NOTE | 2019-05-04 09:10 | DS ---
[facility] Detox Discharge Summary Admission Date: 04/29/19 Discharge Date: 05/04/19 - History Present History: Opioid Dependence Additional Comments: 33 years old female admitted on 04/29/19 for opiate withdrawal sx management [facility] patient has completed the methadone regiment and tolerated well alert oriented x 3 seen by psychiatrist resume remeroon laxepro and seroquel respiratory clear lungs bilaterally on auscultation extremities full range of motion skin warm and dry - Physical Exam Results Vital Signs: Vital Signs Temperature 97.3 F L 05/04/19 06:38 Pulse Rate 54 L 05/04/19 06:38 Respiratory Rate 20 05/04/19 06:38 Blood Pressure 97/60 05/04/19 06:38 O2 Sat by Pulse Oximetry (%) Pertinent Admission Physical Exam Findings: opiate withdrawal sx Laboratory Last Values WBC 4.9 K/mm3 (4.0-10.0) 05/01/19 08:00 RBC 4.00 M/mm3 (3.60-5.2) 05/01/19 08:00 Hgb 11.5 GM/dL (10.7-15.3) 05/01/19 08:00 Hct 34.4 % (32.4-45.2) 05/01/19 08:00 MCV 85.9 fl (80-96) 05/01/19 08:00 MCH 28.9 pg (25.7-33.7) 05/01/19 08:00 MCHC 33.6 g/dl (32.0-36.0) 05/01/19 08:00 RDW 13.2 % (11.6-15.6) D 05/01/19 08:00 Plt Count 226 K/MM3 (134-434) 05/01/19 08:00 MPV 8.3 fl (7.5-11.1) 05/01/19 08:00 Sodium 140 mmol/L (136-145) 05/01/19 08:00 Potassium 4.2 mmol/L (3.5-5.1) 05/01/19 08:00 Chloride 106 mmol/L (98-107) 05/01/19 08:00 Carbon Dioxide 28 mmol/L (21-32) 05/01/19 08:00 Anion Gap 7 MMOL/L (8-16) L 05/01/19 08:00 BUN 14.1 mg/dL (7-18) 05/01/19 08:00 Creatinine 0.9 mg/dL (0.55-1.3) 05/01/19 08:00 Est GFR (CKD-EPI)AfAm 96.01 05/01/19 08:00 Est GFR (CKD-EPI)NonAf 82.84 05/01/19 08:00 Random Glucose 85 mg/dL (74-106) 05/01/19 08:00 Calcium 8.8 mg/dL (8.5-10.1) 05/01/19 08:00 Total Bilirubin 0.2 mg/dL (0.2-1) 05/01/19 08:00 AST 10 U/L (15-37) L 05/01/19 08:00 ALT 15 U/L (13-61) 05/01/19 08:00 Alkaline Phosphatase 51 U/L (45-117) 05/01/19 08:00 Total Protein 6.5 g/dl (6.4-8.2) 05/01/19 08:00 Albumin 3.1 g/dl (3.4-5.0) L 05/01/19 08:00 RPR Titer Nonreactive (NONREACTIVE) 05/01/19 08:00 lab noted - Treatment Hospital Course: Detox Protocol Followed, Detoxed Safely, Responded well, Discharged Condition Good, Rehab Referral Accepted Patient has Accepted a [facility] Referral to: [facility] - Medication Discharge Medications: Ambulatory Orders Albuterol 2.5/Ipratropium 0.5 [Duoneb -] 1 neb NEB Q4H PRN 05/11/18 Budesonide/Formeterol Fumarate [SYMBICORT 80/4.5mcg -] 2 inh PO BID 30 Days #1 inhaler 07/09/18 Ibuprofen [Motrin -] 800 mg PO Q8H PRN 7 Days #20 tablet 07/09/18 Mupirocin Ointment [Bactroban 2% Ointment -] 1 applic TP BID 7 Days #1 applic Sulfamethoxazole/Trimethoprim [Bactrim DS -] 1 each PO BID 7 Days #14 tablet 12/19 Albuterol Sulfate Inhaler - [Ventolin HFA Inhaler -] 1 - 2 inh PO Q4H PRN 30 Days #1 inhaler 07/10/18 Albuterol Sulfate Inhaler - [Ventolin HFA Inhaler -] 2 puff IH Q4H PRN 30 Days # 1 inhaler 07/10/18 Budesonide/Formeterol Fumarate [SYMBICORT 80/4.5mcg -] 2 puff IH BID 30 Days #1 inhaler 07/10/18 Escitalopram Oxalate [Lexapro -] 20 mg PO DAILY #30 tablet 07/10/18 Escitalopram Oxalate [Lexapro -] 20 mg PO DAILY #30 tablet 07/10/18 Gabapentin 600 mg PO BID #60 tablet 07/10/18 Gabapentin 600 mg PO BID #60 tablet 07/10/18 Ibuprofen [Motrin -] 800 mg PO TID PRN 7 Days #20 tablet 07/10/18 Mirtazapine [Remeron -] 45 mg PO HS #90 tablet 07/10/18 Mirtazapine [Remeron -] 45 mg PO HS #90 tablet 07/10/18 Prazosin HCl [Minipress] 2 mg PO HS #30 capsule 07/10/18 Prazosin HCl [Minipress] 2 mg PO HS #30 capsule 07/10/18 Cephalexin Monohydrate [Keflex -] 500 mg PO Q6H 4 Days #16 capsule 05/03/19 - Diagnosis (1) Opioid dependence with withdrawal Status: Acute (2) Hepatitis C Status: Chronic Qualifiers: Viral hepatitis chronicity: chronic Hepatic coma status: without hepatic coma Qualified Code(s): B18.2 - Chronic viral hepatitis C (3) Nicotine dependence Status: Acute Qualifiers: Nicotine product type: cigarettes Substance use status: in withdrawal Qualified Code(s): F17.213 - Nicotine dependence, cigarettes, with withdrawal (4) Substance induced mood disorder Status: Suspected - AMA Did Patient Leave Against Medical Advice: No COWS (PN) - Opiate Withdrawal Resting Pulse: 0= [place] 80 or Below Sweatin= No chills or Flushing Restless Observation: 0= Sits Still Pupil Size: 0= Normal to Room Light Bone or Joint Aches: 1= Mild Discomfort Runny Nose/ Eye Tearin= None GI Upset > 30mins: 0= None Tremor Observation of Outstretched Hands: 0= None Yawning Observation: 0= None Anxiety or Irritability: 1=Feels Anxious/Irritable Goose Flesh Skin: 0=Smooth Skin COWS Score: 2
== END 2019-05-04 10:28 | disposition home or self-care (01) | DRG 773 ==
LOC: YASAS 11:24 → Y3N 17:21
PROVIDERS: ADMIT Allergy & Immunology; ATTEND Allergy & Immunology
PROC: HZ2ZZZZ Detoxification Services for Substance Abuse Treatment (ICD-10-PCS; principal; 2019-04-29)
DX: F11.23 Opioid dependence with withdrawal (principal); F14.20 Cocaine dependence, uncomplicated; F17.213 Nicotine dependence, cigarettes, with withdrawal; F19.24 Other psychoactive substance dependence with psychoactive substance-induced mood disorder; F33.1 Major depressive disorder, recurrent, moderate; F43.10 Post-traumatic stress disorder, unspecified; B18.2 Chronic viral hepatitis C; R00.1 Bradycardia, unspecified; G47.00 Insomnia, unspecified; Z91.013 Allergy to seafood; Z91.410 Personal history of adult physical and sexual abuse; Z91.19 Patient's noncompliance with other medical treatment and regimen; Z86.14 Personal history of Methicillin resistant Staphylococcus aureus infection; Z88.1 Allergy status to other antibiotic agents
CPT/HCPCS: 36415; 80053; 85027; 86593; Q0162

== ENCOUNTER 2019-04-29 12:58 | Emergency (ER) | payer OTHER ==
[2019-04-29 13:10] VITALS: BMI 25.8
--- NOTE | 2019-04-29 13:10 | PDOC ---
Rapid Medical Evaluation Chief Complaint: Wound Time Seen by Provider: 04/29/19 13:07 Medical Evaluation: Allergies Allergy/AdvReac Type Severity Reaction Status Date / Time fish derived Allergy Verified 06/24/18 09:32 levofloxacin [From Levaquin] Allergy Verified 06/24/18 09:32 fish Allergy Uncoded 06/24/18 09:32 04/29/19 13:08 I have performed a brief in-person evaluation of this patient. The patient presents with a chief complaint of: sent in from [facility] for cellulitis of posterior right forearm. pt report symptoms has been there for 3 days. Denies fever Pertinent physical exam findings: diffused localized erythema to posterior proximal forearm with mild skin excoriations I have ordered the following: nothing The patient will proceed to the ED for further evaluation. Discharge Disposition - Diagnosis Cellulitis of right forearm - Discharge Dispostion Condition at time of disposition: Stable - Referrals - Patient Instructions - Post Discharge Activity
[2019-04-29] MEDS ORDERED: DALBAVANCIN HCL 1,500 MG in DEXTROSE 5%-WATER - 500 ML IVPB ONE (13:46)
[2019-04-29] MEDS ORDERED: SULFAMETHOXAZOLE/TRIMETHOPRIM 800MG/160MG D.S. TABLET PO ONE (13:51)
[2019-04-29] MEDS ORDERED: CEPHALEXIN MONOHYDRATE 500 MG CAPSULE (UD) PO ONE (13:51)
[2019-04-29] MEDS ORDERED: SULFAMETHOXAZOLE/TRIMETHOPRIM 800MG/160MG D.S. TABLET ONE (14:16)
[2019-04-29] MEDS ORDERED: CEPHALEXIN MONOHYDRATE 500 MG CAPSULE (UD) ONE (14:16)
--- NOTE | 2019-04-29 14:18 | PDOC ---
History of Present Illness - General Chief Complaint: Wound Stated Complaint: WOUND RT ARM Time Seen by Provider: 04/29/19 13:07 History Source: Patient Exam Limitations: No Limitations Past History - Past Medical History Allergies/Adverse Reactions: Allergies Allergy/AdvReac Type Severity Reaction Status Date / Time fish derived Allergy Verified 06/24/18 09:32 levofloxacin [From Levaquin] Allergy Verified 06/24/18 09:32 fish Allergy Uncoded 06/24/18 09:32 Home Medications: Ambulatory Orders Albuterol 2.5/Ipratropium 0.5 [Duoneb -] 1 neb NEB Q4H PRN 05/11/18 Budesonide/Formeterol Fumarate [SYMBICORT 80/4.5mcg -] 2 inh PO BID 30 Days #1 inhaler 07/09/18 Ibuprofen [Motrin -] 800 mg PO Q8H PRN 7 Days #20 tablet 07/09/18 Mupirocin Ointment [Bactroban 2% Ointment -] 1 applic TP BID 7 Days #1 applic 07/09/18 Sulfamethoxazole/Trimethoprim [Bactrim DS -] 1 each PO BID 7 Days #14 tablet 07/09/18 Albuterol Sulfate Inhaler - [Ventolin HFA Inhaler -] 1 - 2 inh PO Q4H PRN 30 Days #1 inhaler 07/10/18 Albuterol Sulfate Inhaler - [Ventolin HFA Inhaler -] 2 puff IH Q4H PRN 30 Days #1 inhaler 07/10/18 Budesonide/Formeterol Fumarate [SYMBICORT 80/4.5mcg -] 2 puff IH BID 30 Days #1 inhaler 07/10/18 Escitalopram Oxalate [Lexapro -] 20 mg PO DAILY #30 tablet 07/10/18 Escitalopram Oxalate [Lexapro -] 20 mg PO DAILY #30 tablet 07/10/18 Gabapentin 600 mg PO BID #60 tablet 07/10/18 Gabapentin 600 mg PO BID #60 tablet 07/10/18 Ibuprofen [Motrin -] 800 mg PO TID PRN 7 Days #20 tablet 07/10/18 Mirtazapine [Remeron -] 45 mg PO HS #90 tablet 07/10/18 Mirtazapine [Remeron -] 45 mg PO HS #90 tablet 07/10/18 Prazosin HCl [Minipress] 2 mg PO HS #30 capsule 07/10/18 Prazosin HCl [Minipress] 2 mg PO HS #30 capsule 07/10/18 Anemia: No Asthma: Yes Cancer: No Cardiac Disorders: No CVA: No COPD: No CHF: No Dementia: No Diabetes: No GI Disorders: No Disorders: No HTN: No Hypercholesterolemia: No Kidney Stones: No Liver Disease: No Seizures: No Thyroid Disease: No - Surgical History Abdominal Surgery: No Appendectomy: No Cardiac Surgery: No Cholecystectomy: No Lung Surgery: No Neurologic Surgery: No Orthopedic Surgery: No - Reproductive History PID: No - Immunization History Immunization Up to Date: No - Psycho Social/Smoking Cessation Hx Smoking History: Current every day smoker Have you smoked in the past 12 months: Yes Number of Cigarettes Smoked Daily: 40 Information on smoking cessation initiated: No 'Breaking Loose' booklet given: 06/24/18 Hx Alcohol Use: Yes Drug/Substance Use Hx: Yes Substance Use Type: Cocaine, Heroin Hx Substance Use Treatment: Yes *Physical Exam - Vital Signs Last Vital Signs Temp Pulse Resp BP Pulse Ox 97.9 F 74 18 102/66 98 04/29/19 13:07 04/29/19 13:07 04/29/19 13:07 04/29/19 13:07 04/29/19 13:07 - Physical Exam General Appearance: No: Apparent Distress Extremity: positive: Other (8x8 cm area of redness and induration along R posterior forearm, no fluctuance noted, no streaking, no drainage, not involving joints) Neurologic: positive: Alert Medical Decision Making - Medical Decision Making 33 y/o F hx of IV heroin use (last used yesterday) presents from [facility] for R arm redness. Patient noticed the redness x 3 days. States she continued to use the same arm to inject medication. Denies fever, other complaints. R arm cellulitis Bedside US shows no pocket of fluid No current concern for abscess Area of redness was outlined Initially planned for IV Dalvance x1 but patient refused having IV placed stating she is a difficult stick and prefers not to be poked Given Keflex and Bactrim Case d/w Dr. Valderrama at [facility] stable to go back 04/29/19 14:14 Discharge - Discharge Information Problems reviewed: Yes Clinical Impression/Diagnosis: Cellulitis of right forearm Condition: Stable Disposition: HOME - Admission No - Follow up/Referral - Patient Discharge Instructions Patient Printed Discharge Instructions: DI for Cellulitis -- Adult Additional Instructions: Thank you for choosing [facility]. It was a pleasure taking care of you. Please take Keflex 500 mg four time a day AND Bactrim DS 1 tablet twice a day for 7 days. Be sure to continue monitoring wound Return to the Emergency Department if your symptoms worsen or persist, you have fever, redness extends area marked, there is streaking or other concerning symptoms. - Post Discharge Activity
[2019-04-29 14:32] VITALS: BP 120/68; PULSE 80; TEMP 98
== END 2019-04-29 14:32 | disposition home or self-care (01) ==
LOC: JER 12:58
PROC: BH47ZZZ Ultrasonography of Upper Extremity (ICD-10-PCS; principal; 2019-04-29)
DX: L03.113 Cellulitis of right upper limb (principal); J45.909 Unspecified asthma, uncomplicated; F11.10 Opioid abuse, uncomplicated; F17.210 Nicotine dependence, cigarettes, uncomplicated; Z88.1 Allergy status to other antibiotic agents; Z91.013 Allergy to seafood
CPT/HCPCS: 76882-TC-LT-FY; 99282-25

== ENCOUNTER 2019-09-05 08:28 | Inpatient (IN) | payer OTHER ==
[2019-09-05 09:05] VITALS: BMI 23.8
[2019-09-05] MEDS ORDERED: cloNIDine HCL 0.1 MG TABLET PO PRN (09:41)
[2019-09-05] MEDS ORDERED: MENTHOL/PHENOL 1 EACH UD MM PRN (09:41)
[2019-09-05] MEDS ORDERED: METHOCARBAMOL 500 MG TABLET PO PRN (09:41)
[2019-09-05] MEDS ORDERED: MAG HYDROX/AL HYDROX/SIMETH 30 ML UNIT-DOSE CUP PO PRN (09:41)
[2019-09-05] MEDS ORDERED: ONDANSETRON *ODT* 4 MG TABLET SL ONE (09:41)
[2019-09-05] MEDS ORDERED: MAGNESIUM CITRATE 300 ML BOTTLE PO PRN (09:41)
[2019-09-05] MEDS ORDERED: NICOTINE POLACRILEX 2 MG GUM BUC PRN (09:41)
[2019-09-05] MEDS ORDERED: ACETAMINOPHEN 325 MG TABLET (FP) PO PRN ×2 (09:41)
[2019-09-05] MEDS ORDERED: BISMUTH SUBSALICYLATE 262 MG/15 ML BTL PO PRN (09:41)
[2019-09-05] MEDS ORDERED: MAGNESIUM HYDROX 2400MG/30ML ORAL SUSPENSION 30 ML CUP PO PRN (09:41)
[2019-09-05] MEDS ORDERED: METHADONE HCL 10 MG TABLET (FOR DETOX USE ONLY) PO ONE (09:41)
[2019-09-05] MEDS ORDERED: ALBUTEROL SO4 HFA INHALER IH PRN (09:43)
[2019-09-05] MEDS: hydrOXYzine PAMOATE 25 MG CAPSULE (FP) PO SCH ×4 (11:04→22:29)
[2019-09-05] MEDS: BUDESONIDE/FORMETEROL FUMARATE 80/4.5 mcg INHALER IH SCH ×2 (11:05→22:28)
[2019-09-05] MEDS: NICOTINE 7 MG/24 HOURS TOPICAL PATCH TD SCH (11:05)
[2019-09-05] MEDS: PRENATAL VITAMINS W/ FOLIC ACID TABLET (FP) PO SCH (11:05)
[2019-09-05] MEDS: ESCITALOPRAM OXALATE 20 MG TABLET PO SCH (11:05)
[2019-09-05] MEDS: GABAPENTIN 300 MG CAPSULE PO SCH ×2 (11:06→22:28)
[2019-09-05 14:13] LABS: HEMATOCRIT 36.5 % (32.4-45.2); HEMOGLOBIN 12.2 GM/dL (10.7-15.3); MCH 27.7 pg (25.7-33.7); MCHC 33.3 g/dl (32.0-36.0); MEAN CELL VOLUME 83.1 fl (80-96); MEAN PLT VOLUME 7.9 fl (7.5-11.1); PLATELET COUNT 199 K/MM3 (134-434); RBC 4.39 M/mm3 (3.60-5.2); RDW 16.7 % (11.6-15.6); WHITE BLOOD COUNT 4.8 K/mm3 (4.0-10.0)
[2019-09-05 14:24] LABS: ALBUMIN 3.6 g/dl (3.4-5.0); BILIRUBIN,TOTAL 0.8 mg/dL (0.2-1); BLOOD UREA NITROGEN 10.3 mg/dL (7-18); CALCIUM 8.8 mg/dL (8.5-10.1); CREATININE 0.9 mg/dL (0.55-1.3); POTASSIUM 3.7 mmol/L (3.5-5.1); TOT PROT 7.8 g/dl (6.4-8.2)
[2019-09-05] MEDS: THIAMINE HCL 100 MG TABLET (FP) PO SCH (22:28)
[2019-09-05] MEDS: PRAZOSIN HCL 1 MG CAPSULE PO SCH (22:28)
[2019-09-05] MEDS: MIRTAZAPINE 15 MG TABLET (FP) PO SCH (22:29)
[2019-09-05] MEDS: MELATONIN 5 MG TABLETS PO SCH (22:33)
[2019-09-06] MEDS: hydrOXYzine PAMOATE 25 MG CAPSULE (FP) PO SCH ×5 (06:21→22:23)
[2019-09-06] MEDS ORDERED: METHADONE HCL 10 MG TABLET (FOR DETOX USE ONLY) ONE (09:18)
[2019-09-06] MEDS ORDERED: METHADONE HCL 5 MG TABLET (FOR DETOX USE ONLY) ONE (09:18)
[2019-09-06] MEDS ORDERED: METHADONE (DETOX) 20 MG, METHADONE (DETOX) 5 MG PO ONE (10:00)
[2019-09-06] MEDS: ESCITALOPRAM OXALATE 20 MG TABLET PO SCH (10:36)
[2019-09-06] MEDS: BUDESONIDE/FORMETEROL FUMARATE 80/4.5 mcg INHALER IH SCH ×2 (10:36→22:22)
[2019-09-06] MEDS: PRENATAL VITAMINS W/ FOLIC ACID TABLET (FP) PO SCH (10:36)
[2019-09-06] MEDS: NICOTINE 7 MG/24 HOURS TOPICAL PATCH TD SCH (10:37)
[2019-09-06] MEDS: GABAPENTIN 300 MG CAPSULE PO SCH ×2 (10:37→22:20)
[2019-09-06] MEDS: THIAMINE HCL 100 MG TABLET (FP) PO SCH (22:20)
[2019-09-06] MEDS: MIRTAZAPINE 15 MG TABLET (FP) PO SCH (22:20)
[2019-09-06] MEDS: PRAZOSIN HCL 1 MG CAPSULE PO SCH (22:20)
[2019-09-06] MEDS: MELATONIN 5 MG TABLETS PO SCH (22:22)
[2019-09-07] MEDS: hydrOXYzine PAMOATE 25 MG CAPSULE (FP) PO SCH ×5 (05:43→22:08)
[2019-09-07] MEDS ORDERED: METHADONE HCL 10 MG TABLET (FOR DETOX USE ONLY) PO ONE (10:00)
[2019-09-07] MEDS: ESCITALOPRAM OXALATE 20 MG TABLET PO SCH (10:48)
[2019-09-07] MEDS: NICOTINE 21 MG/24 HOURS TOPICAL PATCH TD SCH (10:48)
[2019-09-07] MEDS: PRENATAL VITAMINS W/ FOLIC ACID TABLET (FP) PO SCH (10:48)
[2019-09-07] MEDS: GABAPENTIN 300 MG CAPSULE PO SCH ×2 (10:48→22:04)
[2019-09-07] MEDS: BUDESONIDE/FORMETEROL FUMARATE 80/4.5 mcg INHALER IH SCH ×2 (10:50→22:08)
[2019-09-07] MEDS: NICOTINE 7 MG/24 HOURS TOPICAL PATCH TD SCH (10:50)
[2019-09-07] MEDS: IBUPROFEN 400 MG TABLET (FP) PO PRN (12:35)
[2019-09-07] MEDS ORDERED: DICYCLOMINE HCL 20 MG TABLET PO ONE (13:11)
[2019-09-07] MEDS: CEPHALEXIN MONOHYDRATE 500 MG CAPSULE (UD) PO SCH ×2 (13:43→22:05)
[2019-09-07] MEDS: PRAZOSIN HCL 1 MG CAPSULE PO SCH (22:05)
[2019-09-07] MEDS: MIRTAZAPINE 15 MG TABLET (FP) PO SCH (22:06)
[2019-09-07] MEDS: MELATONIN 5 MG TABLETS PO SCH (22:08)
[2019-09-07] MEDS: THIAMINE HCL 100 MG TABLET (FP) PO SCH (22:08)
[2019-09-08] MEDS: hydrOXYzine PAMOATE 25 MG CAPSULE (FP) PO SCH ×2 (05:46→10:29)
[2019-09-08] MEDS ORDERED: METHADONE HCL 10 MG TABLET (FOR DETOX USE ONLY) ONE (08:56)
[2019-09-08] MEDS ORDERED: METHADONE HCL 5 MG TABLET (FOR DETOX USE ONLY) ONE (08:56)
[2019-09-08] MEDS ORDERED: METHADONE (DETOX) 10 MG, METHADONE (DETOX) 5 MG PO ONE (10:00)
[2019-09-08] MEDS: NICOTINE 21 MG/24 HOURS TOPICAL PATCH TD SCH (10:25)
[2019-09-08] MEDS: BUDESONIDE/FORMETEROL FUMARATE 80/4.5 mcg INHALER IH SCH ×2 (10:25→23:06)
[2019-09-08] MEDS: ESCITALOPRAM OXALATE 20 MG TABLET PO SCH (10:26)
[2019-09-08] MEDS: GABAPENTIN 300 MG CAPSULE PO SCH ×2 (10:26→22:22)
[2019-09-08] MEDS: CEPHALEXIN MONOHYDRATE 500 MG CAPSULE (UD) PO SCH ×2 (10:26→22:22)
[2019-09-08] MEDS: NICOTINE 7 MG/24 HOURS TOPICAL PATCH TD SCH (10:27)
[2019-09-08] MEDS: PRENATAL VITAMINS W/ FOLIC ACID TABLET (FP) PO SCH (10:27)
[2019-09-08] MEDS: hydrOXYzine PAMOATE 50 MG CAPSULE (FP) PO PRN (15:12)
[2019-09-08] MEDS: THIAMINE HCL 100 MG TABLET (FP) PO SCH (22:22)
[2019-09-08] MEDS: PRAZOSIN HCL 1 MG CAPSULE PO SCH (22:22)
[2019-09-08] MEDS: MELATONIN 5 MG TABLETS PO SCH (22:23)
[2019-09-08] MEDS: MIRTAZAPINE 15 MG TABLET (FP) PO SCH (22:57)
[2019-09-09] MEDS ORDERED: METHADONE HCL 10 MG TABLET (FOR DETOX USE ONLY) PO ONE (10:00)
[2019-09-09] MEDS: CEPHALEXIN MONOHYDRATE 500 MG CAPSULE (UD) PO SCH ×2 (10:08→21:02)
[2019-09-09] MEDS: BUDESONIDE/FORMETEROL FUMARATE 80/4.5 mcg INHALER IH SCH ×2 (10:08→21:05)
[2019-09-09] MEDS: ESCITALOPRAM OXALATE 20 MG TABLET PO SCH (10:08)
[2019-09-09] MEDS: NICOTINE 21 MG/24 HOURS TOPICAL PATCH TD SCH (10:08)
[2019-09-09] MEDS: GABAPENTIN 300 MG CAPSULE PO SCH ×2 (10:08→21:03)
[2019-09-09] MEDS: PRENATAL VITAMINS W/ FOLIC ACID TABLET (FP) PO SCH (10:08)
[2019-09-09] MEDS: NICOTINE 7 MG/24 HOURS TOPICAL PATCH TD SCH (10:11)
[2019-09-09] MEDS: hydrOXYzine PAMOATE 50 MG CAPSULE (FP) PO PRN (13:45)
[2019-09-09] MEDS: IBUPROFEN 400 MG TABLET (FP) PO PRN (14:44)
[2019-09-09] MEDS: THIAMINE HCL 100 MG TABLET (FP) PO SCH (21:02)
[2019-09-09] MEDS: PRAZOSIN HCL 1 MG CAPSULE PO SCH (21:02)
[2019-09-09] MEDS: MIRTAZAPINE 15 MG TABLET (FP) PO SCH (21:03)
[2019-09-09] MEDS: MELATONIN 5 MG TABLETS PO SCH (22:23)
[2019-09-10] MEDS ORDERED: METHADONE HCL 5 MG TABLET (FOR DETOX USE ONLY) PO ONE (06:00)
[2019-09-10 07:10] VITALS: BP 93/59; PULSE 66; TEMP 97.5
[2019-09-10] MEDS: ESCITALOPRAM OXALATE 20 MG TABLET PO SCH (09:03)
[2019-09-10] MEDS: GABAPENTIN 300 MG CAPSULE PO SCH (09:03)
[2019-09-10] MEDS: CEPHALEXIN MONOHYDRATE 500 MG CAPSULE (UD) PO SCH (09:03)
[2019-09-10] MEDS: NICOTINE 7 MG/24 HOURS TOPICAL PATCH TD SCH (09:05)
[2019-09-10] MEDS: BUDESONIDE/FORMETEROL FUMARATE 80/4.5 mcg INHALER IH SCH (09:06)
[2019-09-10] MEDS: PRENATAL VITAMINS W/ FOLIC ACID TABLET (FP) PO SCH (09:06)
== END 2019-09-10 09:10 | disposition home or self-care (01) | DRG 773 ==
LOC: YASAS 08:28 → Y6N 09:20
PROVIDERS: ADMIT Allergy & Immunology; ATTEND Allergy & Immunology
PROC: HZ2ZZZZ Detoxification Services for Substance Abuse Treatment (ICD-10-PCS; principal; 2019-09-05)
DX: F11.23 Opioid dependence with withdrawal (principal); F14.20 Cocaine dependence, uncomplicated; F17.210 Nicotine dependence, cigarettes, uncomplicated; F33.1 Major depressive disorder, recurrent, moderate; F19.282 Other psychoactive substance dependence with psychoactive substance-induced sleep disorder; F60.9 Personality disorder, unspecified; F43.10 Post-traumatic stress disorder, unspecified; G47.00 Insomnia, unspecified; L03.113 Cellulitis of right upper limb; J45.909 Unspecified asthma, uncomplicated; B18.2 Chronic viral hepatitis C; Z62.810 Personal history of physical and sexual abuse in childhood; Z91.410 Personal history of adult physical and sexual abuse; Z86.14 Personal history of Methicillin resistant Staphylococcus aureus infection; Z87.09 Personal history of other diseases of the respiratory system; Z98.890 Other specified postprocedural states; Z88.1 Allergy status to other antibiotic agents; Z91.013 Allergy to seafood; Z91.19 Patient's noncompliance with other medical treatment and regimen
CPT/HCPCS: 36415; 80053; 81025; 85027; 86780; Q0162; U0003

== ENCOUNTER 2019-12-29 09:28 | Inpatient (IN) | payer OTHER ==
--- OUTSIDE RECORDS SUMMARY | 2019-12-29 09:37 | XMS ---
:1985 Author Organization [facility] Care Team Providers Name Role Phone DENZEL NARAYAN, TIM NARAYAN Unavailable [facility] RSS[facility] Unavailable Unavailable JUAN ATKINSON Unavailable Unavailable Soheila Castellano Unavailable MD JOEL Unavailable Unavailable Zana MCCAIN DO, Hugo H. Unavailable Unavailable Ryder NARAYAN, Physician Unavailable Unavailable Pinnamaneni, DO Unavailable Pinnamaneni, DO Unavailable Pinnamaneni, DO Unavailable Pinnamaneni, DO Unavailable Pinnamaneni, DO Unavailable Pinnamaneni, DO Unavailable Pinnamaneni, DO Unavailable Pinnamaneni, DO Unavailable Pinnamaneni, DO Unavailable Pinnamaneni, DO Unavailable Pinnamaneni, DO Unavailable Pinnamaneni, DO Unavailable Pinnamaneni, DO Unavailable Pinnamaneni, DO Unavailable Pinnamaneni, DO Unavailable Pinnamaneni, DO Unavailable Erin NARAYAN, MgInacia Unavailable Unavailable [facility] Unavailable Unavailable TEITZ MD, A MD Unavailable Unavailable Natalie NARAYAN, Physician S Unavailable Unavailable U , S Unavailable Unavailable Obi NARAYAN, Physician A Unavailable Unavailable Tray Gruber MD,DMD, Physician M Unavailable Unavaila ble Bentsi-Ahuja, Unavailable Unavailable Bentsi-Ahuja, MD Unavailable Unavailable Bentsi-Ahuja, MD Unavailable Unavailable Bentsi-Ahuja, MD Unavailable Unavailable Bentsi-Ahuja, MD Unavailable Unavailable Bentsi-Ahuja, MD Unavailable Unavailable Bentsi-Ahuja, MD Unavailable Unavailable Bentsi-Ahuja, MD Unavailable Unavailable Bentsi-Ahuja, MD Unavailable Unavailable Bentsi-Ahuja, MD Unavailable Unavailable Bentsi-Ahuja, MD Unavailable Unavailable Bentsi-Ahuja, MD Unavailable Unavailable Bentsi-Ahuja, MD Unavailable Unavailable Bentsi-Hauja, MD Unavailable Unavailable Bentsi-Ahuja, MD Unavailable Unavailable Bentsi-Ahuja, MD Unavailable Unavailable Bentsi-Ahuja, MD Unavailable Unavailable Ali, 1 Unavailable Ali, 1 Unavailable FERLAND Unavailable Unavailable Steven, HAND PAINT MIXER Unavailable Unavailable Biviano, M CUSTODIAL FOREMAN Unavailable Unavailable Biviano, M CUSTODIAL FOREMAN Unavailable Unavailable Biviano, M CUSTODIAL FOREMAN Unavailable Unavailable Biviano, M CUSTODIAL FOREMAN Unavailable Unavailable Biviano, M CUSTODIAL FOREMAN Unavailable Unavailable Biviano, M CUSTODIAL FOREMAN Unavailable Unavailable Biviano, M CUSTODIAL FOREMAN Unavailable Unavailable Biviano, M CUSTODIAL FOREMAN Unavailable Unavailable Biviano, M CUSTODIAL FOREMAN Unavailable Unavailable Biviano, M CUSTODIAL FOREMAN Unavailable Unavailable Biviano, M CUSTODIAL FOREMAN Unavailable Unavailable Biviano, M CUSTODIAL FOREMAN Unavailable Unavailable CORDOVANO DO, DO Unavailable Unavailable Re-disclosure Warning The records that you are about to access may contain information from federally- assisted alcohol or drug abuse programs. If such information is present, then the following federally mandated warning applies: This information has been disclosed to you from records protected by federal confidentiality rules (42 CFR part 2). The federal rules prohibit you from making any further disclosure of this information unless further disclosure is expressly permitted by the written consent of the person to whom it pertains or as otherwise permitted by 42 CFR part 2. A general authorization for the release of medical or other information is NOT sufficient for this purpose. The Federal rules restrict any use of the information to criminally investigate or prosecute any alcohol or drug abuse patient.The records that you are about to access may contain highly sensitive health information, the redisclosure of which is protected by Article 27-F of the [facility] Public Health law. If you continue you may haveaccess to information: Regarding HIV / AIDS; Provided by facilities licensed or operated by the [facility] Office of Mental Health; or Provided by the [facility] Office for People With Developmental Disabilities. If such information is present, then the following [facility] mandated warning applies: This information has been disclosed to you from confidential records which are protected by state law. State law prohibits you from making any further disclosure of this information without the specific written consent of the person to whom it pertains, or as otherwise permitted by law. Any unauthorized further disclosure in violation of state law may result in a fine or residential sentence or both. A general authorization for the release of medical or other information is NOT sufficient authorization for further disclosure. Allergies and Adverse Reactions Type Description Substance Reaction Status Data Source(s ) Drug allergy Levaquin Levaquin [facility] Drug allergy Fish Fish [facility] Drug allergy levofloxacin levofloxacin Hives [facility] Drug allergy Fish Containing Fish Containing Anaphylaxis U [employer] Products Products [facility] Propensity to LEVAQUIN Levaquin Rash High Active [facility] adverse For Family reactions to Health drug High Propensity to FISH ALLERGY Fish Allergy Anaphylaxis High Active T [facility] adverse reactions For Fam dru to drug Health High Encounters Encounter Providers Location Date Indications Data Source(s ) Outpatient Attender: Maria Luisa 10/15/2019 The [facility] 12:45:04 PM Family Healt EDT Patient admitted. Outpatient Attender: YOANA ADAMS 09/11/2019 11:25:57 AM The [facility] Family Health Patient admitted. Outpatient Attender: Maria Luisa Fu 09/10/2019 10:36:41 AM [facility] EDT Family Health Patient admitted. Outpatient Attender: Maria Luisa Fu 09/05/2019 04:39:20 PM [facility] EDT Family Health Patient admitted. Outpatient Attender: Maria Luisa Fu 09/01/2019 11:22:21 AM [facility] EDT Family Health Patient admitted. Emergency Attender: Del Spann 08/28/2019 04:17:[address] [facility], DOAttender: EDT - 08/28/2019 El[facility] Light ERAdmitter: Del Spann 04:37:00 PM EDT [facility], Patient discharged. Outpatient Attender: Maria Luisa Fu 08/13/2019 04:19:16 PM [facility] EDT [facility] Patient admitted. Outpatient Attender: Maria Luisa Fu 08/11/2019 10:52:10 AM The [place] For CUSTODIAL FOREMAN EDT [facility] Patient admitted. Outpatient Attender: Maria Luisa Fu 08/11/2019 10:50:43 AM [facility] EDT [facility] Patient admitted. Emergency Attender: STEPHON 08/10/2019 10:55:00 RT ARM VANESA N [facility] DOAttender: PM EDT - 08/10/2019 [facility] YAMIL Alonso MD 11:42:00 PM EDT RT ARM PAIN Patient discharged. Outpatient Attender: [facility] 05/20/2019 12:20:08 PM [facility] ([facility]) Patient admitted. Outpatient Attender: Maria Luisa Fu 04/03/2019 05:24:45 PM [facility] EST [facility] Patient admitted. Inpatient Attender: Physician Calderon 03/28/2019 03:04:39 PM [facility] Jaimee Estrada MDAttender: Gladis EST - 04/01/2019 [facility] Erin MDAttender: 11:53:00 AM [facility] ERAdmitter: Physician Yumiko Estrada MDConsultant: Physician Mireya Soler MDConsultant: Physician Tray Taylor MD,DMDConsultant: Physician Adán Crocker MD Patient discharged. Emergency Attender: TIM 03/27/2019 12:05:00 LT EAR P AIN AND [facility] MDAttender: PM EST - 03/27/2019 [facility] YAMIL Alonso MD 03:50:00 PM EST [facility] LT EAR PAIN AND SWELLING Patient discharged. Outpatient Attender: Maria Luisa Fu 02/20/2019 05:44:33 PM [facility] EST [facility] Patient admitted. Emergency Attender: IMELDA 02/16/2019 SWELLING/BURNING O F Ashtyn GAMEZ MDConsultant: 01:46:00 PM EST [facility] Argelia Ramsey - 02/16/2019 [facility] DO 02:55:00 PM EST SWELLING/BURNING OF EYE Patient discharged. Outpatient Attender: Maria Luisa Fu 01/14/2019 04:15:29 PM The [facility] Patient admitted. Outpatient Attender: JUAN 12/03/2018 10:47:36 AM [facility] Healt h Patient admitted. Outpatient Attender: Jcarlos Morales 11/25/2018 10:20:[address] [facility] 01:30:41 Health PM EDT Patient admitted. Outpatient Attender: Maria Luisa Fu 11/12/2018 12:54:43 PM The [facility] Patient admitted. Outpatient 10/31/2018 03:36:48 PM EDT The [facility] Patient admitted. Outpatient Attender: JUAN 10/31/2018 12:00:00 AM The [facility] AMANDOJIM EDT - 10/31/2018 [facility] 03:59:40 PM EDT Patient admitted. Outpatient Attender: Soheila 10/14/2018 12:00:00 AM The [facility] SilvanoInocente [facility] - 10/14/2018 Family H ealt 10:19:32 AM EDT Patient admitted. Outpatient Attender: Maria Luisa Fu 09/30/2018 10:46:28 AM The [facility] Outpatient Attender: Maria Luisa Fu 09/26/2018 04:56:47 PM The [facility] Outpatient Attender: JUAN 09/26/2018 12:33:59 PM The [facility] AMANDOJIMReferrer: EDT - 09/26/2018 [facility] Maria Luisa Fu [facility] 04:20:33 PM EDT Outpatient Attender: Nanci 09/06/2018 03:31:24 PM The Richard Palomino MD EDT Family H ealt Patient admitted. Outpatient Attender: Nanci 09/06/2018 03:23:24 PM The Richard Palomino MD EDT [facility] Patient admitted. Attender: Nanci 09/06/2018 11:44:07 AM The Richard Palomino MD EDT [facility] Outpatient Attender: Nanci 09/03/2018 01:46:37 PM The Richard Palomino MD EDT - 09/06/2018 [facility] 11:53:01 AM EDT Patient admitted. Outpatient Attender: Maria Luisa Fu 08/29/2018 11:25:45 AM [facility] EDT [facility] Patient admitted. Outpatient Attender: Maria Luisa Fu 08/15/2018 02:38:34 PM The [facility] Patient admitted. Outpatient 08/12/2018 09:28:24 AM EDT - [facility] 08/12/2018 11:02:42 AM EDT Patient admitted. Outpatient Attender: Maria Luisa Fu 08/12/2018 08:35:36 AM [facility] EDT - 08/12/2018 [facility] 11:33:50 AM EDT Patient admitted. Outpatient Attender: Maria Luisa 08/06/2018 02:21:14 PM [facility] EDT - 08/06/2018 [facility] 03:43:40 PM EDT Outpatient 08/05/2018 07:48:49 AM I ([facility] EDT [facility]) P Attender: PARVEEN 07/17/2018 11:00:00 AM Z60.9 [facility] CEMELLIAttender: [place] EDT [facility] LCSWReferrer: PARVEEN SIMPSON Z60.9 Immunizations Vaccine Date Status Description Data Source(s) Tdap 06/22/2014 12:00:00 AM EDT completed Tdap 06/22/2014 The [facility] Medications Medication Brand Start Product Dose Route Administrative Pharmacy [facility] Indications Reaction Description Data Name Date Form Instructions Instructions Source(s) doxycycline doxycy .0 Oral Nuv ance hyclate 100 ocampo 2019 mg 10 0 mg, = 1 cap, Oral, BID, X 10 day(s), # 20 cap, 0 Refill(s), Pharmacy: [facility]/pharmacy #[id number], 1 cap Oral BID,x10 day(s) Health - MG Oral hyclat 08:38: [place] Capsule e 100 00 AM [facility] doxycycline mg EST Medical hyclate 100 oral Center mg oral capsul capsule e Doxycycline doxycy 100.0 Oral Nuv ance Monohydrate ocampo 2019 mg 10 0 mg, = 1 cap, Oral, BID, X 10 day(s), # 20 cap, 0 Refill(s), Pharmacy: [facility]/pharmacy #[id number], 1 cap Oral BID,x10 day(s) Health - 100 MG Oral monohy 08:38: [place] Capsule [place] 00 AM [facility] doxycycline 100 mg EST Medica l monohydrate oral Center 100 mg oral capsul capsule e albuterol [id number] 2.0 Inhala Nuva nce Inhaler 2019 tion 2 puff(s), INH, Q ID, as needed for wheezing Health - 04:58: [place] 00 PM [facility] EST Medical Center Ibuprofen ibupro 800.0 Oral Nuvan ce 800 MG Oral fen 2019 mg 800 mg, = 1 t ab, Oral, TID, as needed for pain Health - Tablet 800 mg 04:58: [place] ibuprofen oral 00 PM [facility] 800 mg oral tablet EST Medica l tablet Center gabapentin gabape 300.0 Oral Nuva nce 300 MG Oral ntin 2019 mg 300 mg, = 1 c ap, Oral, TID Health - Capsule 300 mg 04:58: [place] gabapentin oral 00 PM [facility] 300 mg oral capsul EST Medica l capsule e Center Escitalopra escita 20.0 Oral Nuva nce m 20 MG lopram 2019 mg 20 mg, = 1 tab, Oral, Daily Health - Oral Tablet 20 mg 04:58: [place] escitalopra oral 00 PM [facility] s m 20 mg tablet EST Medical oral tablet Center gabapentin Gabape Oral active Neuropathy Ta ke TWO The 300 MG Oral ntin 2019 mg capsules Inst itute Capsule 300 MG 12:00: (600 mg For F amily Gabapentin Oral 00 AM total) by Heross lth 300 MG Oral Cap EDT mouth 2 Cap (two) times a day Neuropathy Escitalopram Escitalopram 01/14/2019 20 Oral active Major Take The 20 MG Oral Oxalate 20 MG 12:00:00 AM mg depressi ve ONE [place] Tablet Oral Tab EDT disorder, tablet Fo r Family Escitalopram recurrent, (20 mg Health Oxalate 20 MG moderate total) Oral Tab (HCC) by mouth daily Major depressive disorder, recurrent, mo derate (HCC) gabapentin Gabapentin 11/25/2018 600 Oral aborted Neuropath y Take TWO The 300 MG Oral 300 MG Oral 12:00:00 AM mg capsules [place] Capsule Cap EDT (600 mg For Famil y Gabapentin total) by Heal th 300 MG Oral mouth 2 Cap (two) times a day Neuropathy Escitalopram Escitalopram 11/25/2018 20 Oral aborted Major Take The 20 MG Oral Oxalate 20 MG 12:00:00 AM mg depressi ve ONE [place] Tablet Oral Tab EDT disorder, tablet Fo r Family Escitalopram recurrent, (20 mg Health Oxalate 20 MG moderate total) Oral Tab (HCC) by mouth daily Major depressive disorder, recurrent, mo derate (HCC) Mirtazapine Mirtazapine 11/25/2018 completed Moder ate Take 1 The 15 MG Oral 15 MG Oral 12:00:00 AM episode of tab at [place] Tablet Tab EDT recurrent bedtime For F amily major as Health depressive needed disorder (HCC) Moderate episode of recurrent major depr essive disorder (HCC) Take 1 tab at bedtime as needed Escitalopram Escitalopram 11/12/2018 20 Oral aborted Major Take The 20 MG Oral Oxalate 20 MG 12:00:00 AM mg depressi ve ONE [place] Tablet Oral Tab EDT disorder, tablet Fo r Family Escitalopram recurrent, (20 mg Health Oxalate 20 MG moderate total) Oral Tab (HCC) by mouth daily Major depressive disorder, recurrent, mo derate (HCC) gabapentin Gabapentin 10/14/2018 600 Oral aborted Neuropath y Take TWO The 300 MG Oral 300 MG Oral 12:00:00 AM mg capsules [place] Capsule Cap EDT (600 mg For Famil y Gabapentin total) by Heal th 300 MG Oral mouth 2 Cap (two) times a day Neuropathy Escitalopram Escitalopram 10/14/2018 20 Oral aborted Major Take The 20 MG Oral Oxalate 20 MG 12:00:00 AM mg depressi ve ONE [place] Tablet Oral Tab EDT disorder, tablet Fo r Family Escitalopram recurrent, (20 mg Health Oxalate 20 MG moderate total) Oral Tab (HCC) by mouth daily Major depressive disorder, recurrent, mo derate (HCC) Diphenhydramine diphenhydrAMINE 10/14/2018 25 Oral active Insomnia Take ONE The Hydrochloride 25 (BENADRYL) 25 MG 12:00:00 AM mg tablet [place] MG Oral Tablet Oral tablet EDT (25 mg For Family diphenhydrAMINE total) He alth (BENADRYL) 25 MG by mouth Oral tablet nightly as needed for sleep Insomnia Escitalopram Escitalopram 09/30/2018 20 Oral aborted Major Take The 20 MG Oral Oxalate 20 MG 12:00:00 AM mg depressi ve ONE [place] Tablet Oral Tab EDT disorder, tablet Fo r Family Escitalopram recurrent, (20 mg Health Oxalate 20 MG moderate total) Oral Tab ([facility]) by mouth daily Major depressive disorder, recurrent, mo derate ([facility]) Mirtazapine Mirtazapine 09/26/2018 45 Oral aborted Anxiety Major Take The 15 MG Oral 15 MG Oral 12:00:00 AM mg depression THREE [place] Tablet Tab EDT single tablets For Fami ly episode, in (45 mg Health partial total) remission by mouth ([facility]) daily Take three (45 mg total) by mouth at bedtime Anxiety Major depression single episode, in part ial remission ([facility]) gabapentin Gabapentin 09/26/2018 600 Oral aborted Neuropath y Take TWO The 300 MG Oral 300 MG Oral 12:00:00 AM mg capsules [place] Capsule Cap EDT (600 mg For Famil y Gabapentin total) by Heal th 300 MG Oral mouth 2 Cap (two) times a day Neuropathy gabapentin Gabapentin 08/29/2018 600 Oral aborted Neuropath y Take TWO The 300 MG Oral 300 MG Oral 12:00:00 AM mg capsules [place] Capsule Cap EDT (600 mg For Famil y Gabapentin total) by Heal th 300 MG Oral mouth 2 Cap (two) times a day Neuropathy Sulfamethoxazole 800 MG / Sulfamethoxazole-Trimethoprim 08/19/2018 1 Oral active MRSA Take The Trimethoprim 160 MG Oral (BACTRIM DS) 800-160 MG Oral 12:00:00 AM {tbl} (methicillin ONE [place] Tablet [Bactrim] Tab EDT resistant tab let For Family Sulfamethoxazole-Trimethoprim staph aureus) by Health (BACTRIM DS) 800-160 MG Oral cultur e mouth 2 Tab positive (two) times a day for 14 days MRSA (methicillin resistant staph aureus ) culture positive Ibuprofen ibuprofen 08/12/2018 600 Oral active Back pain of Take ONE The 600 MG Oral 600 MG Oral 12:00:00 AM mg lumbosacr al tablet [place] Tablet tablet EDT region with (600 mg F or Family ibuprofen sciatica total) by H ealth 600 MG Oral mouth tablet every 6 (six) hours as needed for mild pain or moderate pain for up to 10 days Back pain of lumbosacral region with sci atica gabapentin Gabapentin 08/06/2018 600 Oral aborted Neuropath y Take TWO The 300 MG Oral 300 MG Oral 12:00:00 AM mg capsules [place] Capsule Cap EDT (600 mg For Famil y Gabapentin total) by Heal th 300 MG Oral mouth 2 Cap (two) times a day Neuropathy Mirtazapine Mirtazapine 08/06/2018 45 Oral aborted Anxiety Major Take The 15 MG Oral 15 MG Oral 12:00:00 AM mg depression THREE [place] Tablet Tab EDT single tablets For Fami ly episode, in (45 mg Health partial total) remission by mouth (HCC) daily Take three (45 mg total) by mouth at bedtime Anxiety Major depression single episode, in part ial remission (HCC) Escitalopram Escitalopram 08/06/2018 20 Oral aborted Major Take The 20 MG Oral Oxalate 20 MG 12:00:00 AM mg depressi on ONE [place] Tablet Oral Tab EDT single tablet For F amily Escitalopram episode, in (20 m g Health Oxalate 20 MG partial total) Oral Tab remission by (HCC) mouth daily Major depression single episode, in part ial remission ([facility]) Escitalopram Escitalopram 07/10/2018 aborted The 20 MG Oral Oxalate 20 MG 12:00:00 AM [place] Tablet Oral Tab EDT For Famil y Escitalopram Health Oxalate 20 MG Oral Tab Mirtazapine Mirtazapine 07/10/2018 aborted The 15 MG Oral 15 MG Oral 12:00:00 AM [place] Tablet Tab EDT For Family Health Sertraline 25 Sertraline 05/04/2015 25 Oral aborted Depres andrés Take The MG Oral HCl ([facility]) 12:00:00 AM mg ON E [place] Tablet 25 MG Oral EST tablet For F amily Sertraline Tab (25 mg Health HCl ([place]) total) 25 MG Oral by Tab mouth daily Depression gabapentin Gabapentin 05/04/2015 aborted Insomnia 1 tablet The 600 MG Oral 600 MG Oral 12:00:00 AM by mouth [place] Tablet Tab EST at For Family Gabapentin bedtime Health 600 MG Oral Tab Insomnia Diphenhydramine diphenhydrAMINE 05/04/2015 25 Oral a borted Insomnia Take ONE The Hydrochloride 25 (BENADRYL) 25 MG 12:00:00 AM mg tablet (25 [place] MG Oral Tablet Oral tablet EST mg total) For Family diphenhydrAMINE by mouth Health (BENADRYL) 25 MG every 4- 6 Oral tablet (four-six) hours as needed Insomnia Mirtazapine Mirtazapine 05/04/2015 45 Oral aborted Insomni a Take The 45 MG Oral (REMERON) 45 12:00:00 AM mg ONE [place] Tablet MG Oral Tab EST tablet For Family [Remeron] (45 mg Health Mirtazapine total) ([facility]ERON) 45 by MG Oral Tab mouth daily Insomnia Prazosin 2 prazosin 2 05/04/2015 2 mg Oral aborted Night Take ONE The MG Oral MG Oral 12:00:00 AM terrors caps ule [place] Capsule capsule EST (2 mg For Fami ly prazosin 2 total) by Heal th MG Oral mouth capsule nightly Night terrors Insurance Providers Payer name Policy type Policy ID Covered Covered alliance party's Policy P aubrie / Coverage alliance party ID relationship to Wall Inf ormation type wall MVP [id number] Self [id number] 200 MVP [id number] Self [id number] 200 ANGELA CARE [id number] Self [id number] [facility] [id number] Self [id number] PLAN-FFS [facility] [id number] Self [id number] PLAN-FFS ANGELA CARE [id number] Self [id number] ANGELA CARE [id number] Self [id number] [facility] [id number] SP [id number] [id number] SP [id number] [facility] MCAID [id number] Self [id number] 200 MVP MEDICAID [id number] SP [id number] MVP MEDICAID [id number] SP [id number] [facility] [id number] SP [id number] STRATEGIES MVP HARP [id number] MV Medicaid [id number] Mgd Care MVP [id number] Self [id number] 200 [place] [id number] SP [id number] 200 HEALTH-MVP [place] [id number] SP [id number] 200 STRATEGIES Problems, Conditions, and Diagnoses Code Display Name Description Problem Type Effective Data Dates Source(s) F32.9 Depression Depression [id number] 05/04/2015 The 12:00:00 AM [facility] Z98.51 H/O tubal ligation H/O tubal ligation [id number] The 12:00:00 AM [place] EDT [facility] Z72.0 Tobacco abuse Tobacco abuse [id number] 06/22/2014 The disorder disorder 12:00:00 AM [place] EDT [facility] 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 [id number] 06/22/2014 The 12:00:00 AM [place] EDT [facility] G47.00 Insomnia Insomnia [id number] 06/22/2014 The 12:00:00 AM [place] EDT [facility] 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 12:00:00 AM In stitute disorder EDT [facility] B18.2 Hep C w/o coma, Hep C w/o coma, [id number] 06/22/2014 The chronic chronic 12:00:00 AM [place] EDT [facility] Lab Results Lab Results Diagnosis 10/15/2019 The 12:45:04 PM [place] EDT [facility] Transitional Care Transitional Care Diagnosis 09/11/2019 The Management Outreach Management Outreach 11:25:5 7 AM [place] EDT [facility] Z11.59 Encounter for Encounter for Diagnosis 09/10/2019 The screening for other screening for other 10:36:4 4 AM [place] viral diseases viral diseases EDT For [facility] ER Follow Up Phone ER Follow Up Phone Diagnosis 0 The Call Call 11:22:21 AM [place] EDT For [facility] Outreach Outreach Diagnosis 08/11/2019 The 10:52:10 AM [place] EDT [facility] Z53.21 Procedure and PROC/TRTMT NOT CRD Diagnosis 08/10/2019 [facility] treatment not OUT D/T PT LV BEF 10:55:00 PM Reg ional carried out due to SEEN BY [facility] EDT Hospital of patient leaving [facility] prior to being seen by health care provider L02.91 Cutaneous abscess, Cutaneous abscess, Diagnosis 9 [place] unspecified unspecified 05:05:00 PM [facility] T40.601A Poisoning by Cutaneous abscess, Diagnosis 03/28/2019 Nu[place] n[place] unspecified unspecified 05:05:00 PM Health - narcotics, EST [place] accidental [facility] (unintentional), Medical initial encounter Center F17.200 Nicotine dependence, NICOTINE Diagnosis 02/16/2019 [facility] unspecified, DEPENDENCE, 01:46:00 PM Regional uncomplicated UNSPECIFIED, [facility] Hospital of UNCOMPLICATED [facility] Z86.14 Personal history of PERSONAL HISTORY OF Diagnosis 019 [place] Methicillin METHICILLIN RESIS 01:46:00 PM Regio nal resistant STAPH INFECTION [facility] aureus infection L02.413 Cutaneous abscess of CUTANEOUS ABSCESS Diagnosis 02/17/20 19 [place] right upper limb OF RIGHT UPPER LIMB 01:46:00 P M [facility] H04.301 Unspecified UNSPECIFIED Diagnosis 02/16/2019 [place] dacryocystitis of DACRYOCYSTITIS OF 01:46:00 PM Regional right lacrimal RIGHT LACRIMAL EST Hospit al of passage PASSAGE [facility] G62.9 Polyneuropathy, Polyneuropathy, Diagnosis 01/14/2019 The unspecified unspecified 04:15:29 PM [place] EDT For [facility] F33.1 Major depressive Major depressive Diagnosis 01/14/2019 Th e disorder, recurrent, disorder, 04:15:29 PM [place] moderate recurrent, moderate EDT For [facility] Call During Clinic Call During Clinic Diagnosis 9 The Hours Hours 10:47:36 AM [place] EDT For [facility] F41.9 Anxiety disorder, Anxiety disorder, Diagnosis 09/26/2018 The unspecified unspecified 04:56:47 PM [place] EDT For [facility] F32.4 Major depressive Major depressive Diagnosis 09/26/2018 Th e disorder, single disorder, single 04:56:47 PM I nstitute episode, in partial episode, in partial EDT For Family remission remission Health Erroneous Erroneous Diagnosis 09/06/2018 The encounter-disregard encounter-disregard 03:31:2 4 PM [place] EDT For [facility] Z32.00 Encounter for Encounter for Diagnosis 09/03/2018 The test, test, 01:46:37 PM Ins tit[place] result unknown result unknown EDT For [facility] R87.810 Cervical high risk Cervical high risk Diagnosis 06/04/201 9 The human papillomavirus human 01:46:37 PM Ins titute (HPV) DNA test papillomavirus EDT For Sheila mary positive (HPV) DNA test Health positive B18.2 Chronic viral Chronic viral Diagnosis 08/12/2018 The hepatitis C hepatitis C 09:28:24 AM [place] EDT For [facility] Left Without Being Left Without Being Diagnosis 9 The seen seen 09:28:24 AM [place] EDT For [facility] M54.40 Lumbago with Lumbago with Diagnosis 08/12/2018 The sciatica, sciatica, 08:35:36 AM [place] unspecified side unspecified side EDT Fo r [facility] Health Z13.0 Encounter for Encounter for Diagnosis 08/12/2018 The screening for screening for 08:35:36 AM Institu te diseases of the diseases of the EDT For Family blood and blood and Health blood-forming organs blood-forming and certain organs and certain disorders involving disorders involving the immune mechanism the immune mechanism Z12.4 Encounter for Encounter for Diagnosis 08/12/2018 The screening for screening for 08:35:36 AM Institu te malignant neoplasm malignant neoplasm EDT For Family of cervix of cervix Health Z76.89 Persons encountering Persons Diagnosis 08/12/2018 The health services in encountering health 08:35:36 AM [place] other specified services in other EDT Fo r Family circumstances specified Health circumstances Z00.00 Encounter for Encounter for Diagnosis 08/12/2018 The general adult general adult 08:35:36 AM Institu te medical examination medical examination EDT For Family without abnormal without abnormal He alth findings findings Wound Wound Diagnosis 08/12/2018 The 08:35:36 AM [place] EDT For [facility] 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am 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am Diagnosis 08/12/2018 The 08:35:36 AM [place] EDT For [facility] S51.801A Unspecified open Unspecified open Diagnosis 08/12/2018 Th e wound of right wound of right 08:35:36 AM Insti tute forearm, initial forearm, initial EDT Fo r Family encounter encounter Health T14.8XXA Other injury of Other injury of Diagnosis 08/12/2018 The unspecified body unspecified body 08:35:36 AM I nstitute region, initial region, initial EDT For Family encounter encounter Health Z53.20 Procedure and Procedure and Diagnosis 08/06/2018 The treatment not treatment not 02:21:14 PM Institu te carried out because carried out because EDT For Family of patient's of patient s Health decision for decision for unspecified reasons unspecified reasons Z71.7 Human Human Diagnosis 08/06/2018 The immunodeficiency immunodeficiency 02:21:14 PM I nstitute virus [HIV] virus (HIV) EDT For [facility] Health Medication Request Medication Request Diagnosis 9 The 02:21:14 PM [place] EDT For [facility] Establish Care Establish Care Diagnosis 08/06/2018 The 02:21:14 PM [place] EDT For [facility] Z60.9 Problem related to PROBLEM RELATED TO Diagnosis 9 [employer] social environment, SOCIAL ENVIRONMENT, 01:00:0 0 PM Regional unspecified UNSPECIFIED EDT [facility] F32.9 Major depressive Major depressive Diagnosis 05/04/2015 Th e disorder, single disorder, single 02:06:51 PM I nstitute episode, unspecified episode, EST For Family unspecified Health G47.00 Insomnia, Insomnia, Diagnosis 06/22/2014 The unspecified unspecified 02:57:42 PM [place] EDT For [facility] 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 02:57:34 PM In stitute disorder EDT For [facility] [id number] Neuropathy Diagnosis The [facility] [id number] Major depressive Diagnosis The disorder, [place] recurrent, moderate For amily ([facility]) Health [id number] Moderate episode of Diagnosis The recurrent major [place] depressive disorder For [facility] ([facility]) Health [id number] Neuropathy Diagnosis The [facility] [id number] Major depressive Diagnosis The disorder, [place] recurrent, moderate For F amily ([facility]) Health [id number] Major depressive Diagnosis The disorder, [place] recurrent, moderate For F amily ([facility]) Health [id number] Insomnia Diagnosis The [facility] [id number] Major depressive Diagnosis The disorder, [place] recurrent, moderate For F amily ([facility]) Health [id number] Neuropathy Diagnosis The [facility] [id number] Major depressive Diagnosis The disorder, [place] recurrent, moderate For F amily ([facility]) Health [id number] Anxiety Diagnosis The [facility] [id number] Major depression Diagnosis The single episode, in [facility] [place] partial remission For [facility]) Health [id number] Neuropathy Diagnosis The [facility] [id number] Neuropathy Diagnosis The [facility] [id number] MRSA (methicillin Diagnosis The resistant staph [place] aureus) culture For Famil y positive Health [id number] Back pain of Diagnosis The lumbosacral region Instit [place] with sciatica [facility] [id number] Major depression Diagnosis The single episode, in [facility] [place] partial remission For [facility]) [facility] [id number] Neuropathy Diagnosis The [facility] [id number] Anxiety Diagnosis The [facility] [id number] Major depression Diagnosis The single episode, in Instit [place] partial remission For [facility] [id number] Depression Diagnosis The [facility] [id number] Insomnia Diagnosis The [facility] [id number] Insomnia Diagnosis The [facility] [id number] Insomnia Diagnosis [facility] [id number] Night terrors Diagnosis The [facility] Surgeries/Procedures Procedure Description Date Indications Data Source(s) NOVEL NOVEL Routine 09/10/2019 09/10/2019 Th e CORONAVIRUS CORONAVIRUS 10:36 AM 10:36:00 AM [place] COVID-19 COVID-19 EDT EDT For Sheila mary NASOPHARYNGEAL NASOPHARYNGEAL Health Routine 09/03/2018 [place] 09/03/2018 Encoun t The (URINE) IN (URINE) IN 3:19 PM EDT cy 07:19:00 PM er for [place] [employer]SE examina EDT pregnan For Fami ly tion or cy Health test, test, pregnan result cy unknown unconfi Pregnan rmed cy [place] examina er for tion or pregnan test, cy pregnan test, cy result unconfi unknown rmed Encounter for test, result unk nown examination or test, unconfirmed ENDO-CERVICAL ENDO-CERVICAL Routine 09/03/2018 Cervical high 07/2018 Cervical high The BIOPSY BIOPSY 12:00 AM risk human 04:00:00 AM risk hum an [place] EDT papillomavirus EDT papilloma virus For Family (HPV) DNA test (HPV) DNA test Health positive positive Cervical high risk human papillomavirus (HPV) DNA test positive CERVICAL CERVICAL Routine 09/03/2018 Cervical high 09/03/2018 Ce rvical high The BIOPSY BIOPSY 12:00 AM risk human 04:00:00 AM risk hum an [place] EDT papillomavirus EDT papilloma virus For Family (HPV) DNA test (HPV) DNA test Health positive positive Cervical high risk human papillomavirus (HPV) DNA test positive PANEL 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 PANEL 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 09/03/2018 12:00 09/03/2018 The [place] REPORT REPORT AM EDT 04:00:00 AM EDT For [facility] Health NOVEL CORONAVIRUS COVID-19 NOVEL CORONAVIRUS COVID-19 The [place] For NASOPHARYNGEAL NASOPHARYNGEAL Family Heal th Results ID Date Data Source [id number] 09/10/2019 10:36:00 AM EDT The [facility] Name Value Range Interpretation Description Data Sup porting Code Source(s) Document(s ) NOVEL Not The CORONAVIRUS Detected [place] COVID-19 For Family NASOPHARYNX Health ID Date Data Source [id number] 09/05/2019 10:15:00 AM EDT [facility] Name Value Range Interpretation Description Data Sup porting Code Source(s) Document(s ) SARS [facility] CORONAVIRUS 2 RNA This lab was ordered by [facility] Ac ct Bill Inter and reported by [facility]. ID Date Data Source [id number] 08/28/2019 04:38:00 PM EDT [facility] [id number] Patient: LASHAWN CABALLERO Age: 33 years Sex: Female : 1985 Associated Diagnoses: None Author: Teo Ross Basic Information Vital Signs Vital Signs 08/28/2019 16:19 EDT Temperature Oral 97.7 DegF Systolic Blood Pressure 118 mmHg Diastolic Blood Pressure 82 mmHg Heart Rate Monitored 79 bpm Respiratory Rate 18 br/min . Measur ements 08/28/2019 16:19 EDT Clinical Weight 72 kg Body Mass Index Measured 24.06 kg/m2 Body Mass Index Measured 24.06 kg/m2 Height/Length Measured 173 cm . Basic Ox ygen Information 08/28/2019 16:19 EDT Oxygen Therapy Room air SpO2 96 % . History o f Present Illness Chief Complaint PT has infection/abscess right forearm. [place] Order Profile (Selected) Inpatient OrdersOrderedED PIT Process Initiated: P atient Isolation: Smoking Cessation Instruction: Ordered (Dispatched)CBC w/ Auto Diff: Comprehensive Metabolic Panel: Culture,Blood: Culture,Blood: Lactic Aci d Level: PT/INR: . Physical Examination General: Alert, general appearrance in no acute distress, Not ill-appearing, Skin: cellulitis apppearence to the right fore arm. Neurological: No focal neurological deficit observed, normal motor observed, normal speech observed. Focused Exam: non labored breathing.Electronically signed by Teo Martino PA-C 08/28/2019 16:38 EDT Name Value Range Interpretation Code Description Data Danis rce(s) Supporting Document(s ) ID Date Data Source [id number] 03/31/2019 06:47:00 AM EST [facility] Name Value Range Interpretation Description Data Sup porting Code Source(s) Document(s ) Vanco 8.8 5.0-40.[address] [facility] [place] mcg/mL [facility] ID Date Data Source [id number] 03/30/2019 07:34:00 AM EST [facility] Name Value Range Interpretation Description Data Sup porting Code Source(s) Document(s ) ALT 11 IU/L 7-40 NO [facility] AST 14 IU/L 15-41 [facility] Albumin Lvl 3.0 gm/dL 3.5-5.0 [facility] Alk Phos 38 IU/L 38-126 [facility] Bili Direct 0.1 mg/dL <=0.2 [facility] Bili Total 0.7 mg/dL 0.3-1.2 [facility] Total 5.8 gm/dL 6.0-8.[address] [facility] Protein [facility] Glob 2.8 gm/dL 2.0-4.5 [facility] A/G Ratio 1.1 ratio 1.0-2.2 [facility] Bili 0.6 mg/dL 0.2-1.[address] [facility] Indirect [facility] ID Date Data Source [id number] 03/30/2019 06:38:00 AM EST [facility] Name Value Range Interpretation Description Data Sup porting Code Source(s) Document(s ) Magnesium 1.9 mg/dL 1.6-2.6 [facility] ID Date Data Source [id number] 03/30/2019 06:31:00 AM [facility] Added by Discern Rule GLB_ADD_GFR_BMP Name Value Range Interpretation Code Description Data Danis rce(s) Supporting Document(s ) eGFR-AA 90 >=60 [facility] mL/min/[address] The CKD-EPI equation for non- [facility] rican individuals is used to calculate the estimated glomerular filtration rate (GF R). To estimate the GFR for Americans, multiply the provided GFR res ult by 1.16. The CKD-EPI equation is validated in individuals 18 years of age or older. It is less accurate in patients with extremes of muscle mass, restrictio n of dietary protein, ingestion of creatine, extra-renal metabolism of creatinine, or treatment with medications that affect renal tubular creatinine secretion.GFR Categor ies in Chronic Kidney Disease (CKD)GFR Category: GFR (mL/min/1.73 m2): Inte rpretation: G1 90 or greater Normal or high*G2 60-89 Mild decrease* G3a 45-59 Mild to moderate [id number] 30-44 Moderate to s evere decreaseG4 15-29 Severe decreaseG5 14 or less Kidney fa ilure eGFR-NEHEMIAS 74 mL/min/1.73m2 >=60 NO [facility] The CKD-EPI equation for non- [place] r[place] individuals is used to calculate the estimated glomerular filtration rate (GF R). To estimate the GFR for Americans, multiply the provided GFR res ult by 1.16. The CKD-EPI equation is validated in individuals 18 years of age or older. It is less accurate in patients with extremes of muscle mass, restrictio n of dietary protein, ingestion of creatine, extra-renal metabolism of creatinine, or treatment with medications that affect renal tubular creatinine secretion.GFR Categor ies in Chronic Kidney Disease (CKD)GFR Category: GFR (mL/min/1.73 m2): Inte rpretation: G1 90 or greater Normal or high*G2 60-89 Mild decrease* G3a 45-59 Mild to moderate [id number] 30-44 Moderate to s evere decreaseG4 15-29 Severe decreaseG5 14 or less Kidney fa ilure ID Date Data Source [id number] 03/30/2019 06:31:00 AM EST [facility] Name Value Range Interpretation Description Data Sup porting Code Source(s) Document(s ) Phosphorus 2.9 mg/dL 2.5-5.0 NO [facility] ID Date Data Source [id number] 03/30/2019 06:31:00 AM [facility] Name Value Range Interpretation Description Data Sup porting Code Source(s) Document(s ) Glucose Lvl 89 mg/dL 65-99 NO [facility] BUN 15.0 6.0-20.0 NO [place] mg/dL [facility] Creatinine 0.87 0.40-1.0 NO [place] mg/dL 0 [facility] BUN/Creat 17.2 7.0-29.0 NO [place] Ratio ratio [facility] Sodium Lvl 137 136-145 NO [place] mmol/L [facility] Potassium Lvl 4.2 3.5-5.1 NO [place] mmol/L [facility] Chloride 110 98-107 [place] mmol/L [facility] CO2 22 23-29 LO [place] mmol/L [facility] AGAP 5 5-15 NO [facility] Calcium Lvl 8.1 8.6-10.0 LO [place] mg/dL [facility] ID Date Data Source [id number] 03/30/2019 05:41:00 AM EST [facility] Name Value Range Interpretation Description Data Sup porting Code Source(s) Document(s ) WBC 5.3 4.0-10.5 NO [place] x10(3)/[facility] RBC 3.72 3.80-5.20 LO [place] x10(6)/[facility] Hgb 11.1 11.4-15.1 LO [place] gm/dL [facility] Hct 32.6 % 36.0-46.0 LO [facility] MCV 88 fL 80-98 NO [facility] MCH 29.9 pg 26.0-34.0 NO [facility] MCHC 34.1 32.0-36.0 NO [place] gm/dL [facility] RDW 12.9 % 11.0-15.0 NO [facility] Platelet 229 150-400 NO [place] x10(3)/[facility] MPV 7.3 fL 8.5-13.0 LO [facility] ID Date Data Source [id number] 03/29/2019 04:54:00 PM EST [facility] Name Value Range Interpretation Code Description Data Danis rce(s) Supporting Document(s ) MRSA,pcr Negative CR [facility] Results Called to marija sellers rn by sara with read back at 03/29/2019 16:54:29 EST. ID Date Data Source [id number] 03/29/2019 11:47:00 AM EST [facility] Name Value Range Interpretation Description Data Sup porting Code Source(s) Document(s ) Neut Auto 56.7 % 50.0-80.0 NO [facility] Lymph Auto 33.4 % 14.0-44.0 NO [facility] [place] Auto 7.6 % 0.0-12.0 NO [facility] Eos Auto 1.5 % 0.0-7.0 NO [facility] Baso Auto 0.8 % 0.0-3.0 NO [facility] Neut 4.1 2.0-8.4 NO [place] Absolute x10(3)/[facility] Lymph 2.4 0.6-4.8 NO [place] Absolute x10(3)/[facility] Pierce 0.6 0.0-1.1 NO [place] Absolute x10(3)/[facility] Eos Absolute 0.1 0.0-0.5 NO [place] x10(3)/[facility] Baso 0.1 0.0-0.3 NO [place] Absolute x10(3)/[facility] ID Date Data Source [id number] 03/29/2019 11:47:00 AM EST [facility] 3 epic specialist miss. Barreto do it. Spoke Lupis Strickland 03/29/2019 10:56:29 EST/phle/eb Name Value Range Interpretation Description Data Sup porting Code Source(s) Document(s ) WBC 7.2 4.0-10.5 NO [place] x10(3)/[facility] RBC 4.33 3.80-5.20 NO [place] x10(6)/[facility] Hgb 12.7 11.4-15.1 NO [place] gm/dL [facility] Hct 37.4 % 36.0-46.0 NO [facility] MCV 86 fL 80-98 NO [facility] MCH 29.4 pg 26.0-34.0 NO [facility] MCHC 34.0 32.0-36.0 NO [place] gm/dL [facility] RDW 13.2 % 11.0-15.0 NO [facility] Platelet 308 150-400 NO [place] x10(3)/[facility] MPV 7.1 fL 8.5-13.0 LO [facility] ID Date Data Source [id number] 03/29/2019 09:00:00 AM EST [facility] Name Value Range Interpretation Description Data Sup porting Code Source(s) Document(s ) Magnesium 2.0 mg/dL 1.6-2.6 NO [facility] ID Date Data Source [id number] 03/29/2019 08:56:00 AM [facility] Added by Discern Rule GLB_ADD_GFR_BMP Name Value Range Interpretation Code Description Data Danis rce(s) Supporting Document(s ) eGFR-AA 78 >=60 NO [facility] mL/min/1.[address] The CKD-EPI equation for non- [facility] rican individuals is used to calculate the estimated glomerular filtration rate (GF R). To estimate the GFR for Americans, multiply the provided GFR res ult by 1.16. The CKD-EPI equation is validated in individuals 18 years of age or older. It is less accurate in patients with extremes of muscle mass, restrictio n of dietary protein, ingestion of creatine, extra-renal metabolism of creatinine, or treatment with medications that affect renal tubular creatinine secretion.GFR Categor ies in Chronic Kidney Disease (CKD)GFR Category: GFR (mL/min/1.73 m2): Inte rpretation: G1 90 or greater Normal or high*G2 60-89 Mild decrease* G3a 45-59 Mild to moderate [id number] 30-44 Moderate to s evere decreaseG4 15-29 Severe decreaseG5 14 or less Kidney fa ilure eGFR-NEHEMIAS 65 mL/min/1.73m2 >=60 NO [facility] The CKD-EPI equation for non- [place] r[place] individuals is used to calculate the estimated glomerular filtration rate (GF R). To estimate the GFR for Americans, multiply the provided GFR res ult by 1.16. The CKD-EPI equation is validated in individuals 18 years of age or older. It is less accurate in patients with extremes of muscle mass, restrictio n of dietary protein, ingestion of creatine, extra-renal metabolism of creatinine, or treatment with medications that affect renal tubular creatinine secretion.GFR Categor ies in Chronic Kidney Disease (CKD)GFR Category: GFR (mL/min/1.73 m2): Inte rpretation: G1 90 or greater Normal or high*G2 60-89 Mild decrease* G3a 45-59 Mild to moderate [id number] 30-44 Moderate to s evere decreaseG4 15-29 Severe decreaseG5 14 or less Kidney fa ilure ID Date Data Source [id number] 03/29/2019 08:56:00 AM EST [facility] Name Value Range Interpretation Description Data Sup porting Code Source(s) Document(s ) Phosphorus 3.6 mg/dL 2.5-5.0 NO [facility] ID Date Data Source [id number] 03/29/2019 08:56:00 AM EST [facility] Name Value Range Interpretation Description Data Sup porting Code Source(s) Document(s ) Glucose Lvl 82 mg/dL 65-99 NO [facility] BUN 14.0 6.0-20.0 NO [place] mg/dL [facility] Creatinine 0.98 0.40-1.0 NO [place] mg/dL 0 [facility] BUN/Creat 14.3 7.0-29.0 NO [place] Ratio ratio [facility] Sodium Lvl 137 136-145 NO [place] mmol/L [facility] Potassium Lvl 4.3 3.5-5.1 NO [place] mmol/L [facility] Chloride 107 98-107 NO [place] mmol/L [facility] CO2 22 23-29 LO [place] mmol/L [facility] AGAP 8 5-15 NO [facility] Calcium Lvl 8.5 8.6-10.0 LO [place] mg/dL [facility] ID Date Data Source [id number] 03/29/2019 02:10:00 PM [facility] Name Value Range Interpretation Description Data Sup porting Code Source(s) Document(s ) Hemoglobin A1C 5.4 % <=5.6 NO [facility] 5.7-6.4% Pre-diabetes> 6.4% Diagno stic for diabetes(Summarized from [place] [employer] 2018 Standards)This test was performed using the [employer] Hb 9210 Analyzer utilizing [employer]. ID Date Data Source [id number] 03/29/2019 01:58:00 AM [facility] Name Value Range Interpretation Description Data Sup porting Code Source(s) Document(s ) Lactic Acid 1.0 mmol/L <=2.0 NO [facility] ID Date Data Source [id number] 03/28/2019 10:23:00 PM [facility] Name Value Range Interpretation Description Data Sup porting Code Source(s) Document(s ) Lactic Acid 0.9 mmol/L <=2.0 NO [facility] ID Date Data Source [id number] 03/28/2019 09:07:00 PM [facility] Patient Name: LASHAWN CABALLEROMRN: [id number] Computed TomographyACCESSION EXAM DATE/TIME PROCEDURE ORDERING PROVIDER [id number] 03/28/2019 21:00 CT Soft Tissue Neck Luis BOOTHE, Auth (Verified ) DEBBIE Riggs For Exam(C T Soft Tissue Neck W) Other (Add Reason to Special Instructions)ReportPROCEDURE: C omputed Tomography Soft Tissue Neck With ContrastCLINICAL HISTORY: Abscess Left JawSCRIPT INFORMATION: abscess left jawCOMPARISON: None.TECHNIQUE:Computed Tomography of the soft tissues of the neck was performed following the intravenous administration of contrast. Two dimensional reformatted imaging was obtained in sagi ttal and coronal planes.FINDINGS:CRANIAL VAULT:The visualized intracranial soft t issues are unremarkable.SKULL BASE/MASTOIDS:The skull base structures and mastoid air cells are unremarkable.ORBITS:The visualized orbit al soft tissues are unremarkable.PARANASAL SINUSES/NASAL FOSSA:The visualized paran huseyin sinuses are well developed and aerated.There is a rightward convexity d eviation of the nasal septum obstructing the nasal air channels on that side.SALIVARY :The salivary glands are symmetric.ORAL CAVITY/PHARYNX/LARYNX:The oropharynx, ba se of tongue, and floor of mouth structures are within normal limits.The hypopharynx , larynx and subglottic airway are within normal limits.THYROID:The thyroid gland is unremarkable.LYMPH NODES/VASCULATURE:There is no suspicious cervical lymphadenopath y.The vasculature is normal in caliber and enhancement.BONES:The bones are unremark able.TRACHEA/LUNG APICES:There is a 5 mm nodule at the left lung apex.IMPRESSION: No acute process in the neck.Left apical pulmonary nodule.Fleischner Society Foll ow-Up Guidelines:Single solid pulmonary nodule measuring <6 mm:Low-risk patient (minimal or absent smoking history and no other known risk factors):No routine fol low up.High-risk patient (history of smoking or other known risk factors)*:Optional n oncontrast chest CT at 12 months.*Solid nodules smaller than 6 mm do not require routine follow-up in all patients with high clinical risk; however, some nodules sma ller than 6 mm with suspicious morphology, upper lobe location, or both may warrant follow-up at 12 monthReference:Guidelines for Management of Incidental Pulmonary N odules Detected on CT Images: From the Fleischner Society 2017. Cory Maldonado et al. Radiology 2017 284:1, 228-243.http://pubs.rsna.org/doi/abs/10. 1148/radiol.9302468835Ukndr you for allowing us to participate in the evaluation of t his patient. Final Dictated: Randi NARAYAN Yamil Swift. 03/28/19 21:02Sig mónica: Yamil Bryan MD JamisonIgnacia 03/28/19 21:07Transcribed by: DMK Name Value Range Interpretation Code Description Data Danis rce(s) Supporting Document(s ) ID Date Data Source [id number] 03/28/2019 09:03:00 PM EST [facility] Patient Name: LASHAWN CABALLEROMRN: [id number] Computed TomographyACCESSION EXAM DATE/TIME PROCEDURE ORDERING PROVIDER [id number] 03/28/2019 20:57 CT Head WO Luis BOOTHE, Auth (Verified) EST Oneil For Exam(CT He ad WO) AbscessReportPROCEDURE: Computed Tomography Brain Without ContrastCLINICA L HISTORY: Pain Left SideSCRIPT INFORMATION: pain left sideCOMPARISON: CT head 2009TECHNIQUE:Computed Tomography of the brain was performed without the administ ration of intravenous contrast.FINDINGS:VENTRICLES/CISTERNS/RAGLAND LCI:The ventricles, cisterns, and sulci are normal in size and configuration.MASS EF FECT:There is no evidence for mass effect or midline shift.HEMORRHAGE/EXTRAAXIAL FLUI D:There is no acute intracranial hemorrhage or extraaxial fluid collection.ISCHEMIA: No significant white matter disease is identified.ORBITS/CALVARIA/SKULL BASE:Th e visualized portions of the orbits are within normal limits.The calvaria and sk ull base structures are unremarkable.PARANASAL SINUSES/MASTOIDS: The visualized sinuses are unremarkable.The mastoid air cells are well developed and aerated.IMPRESSION:No acute intracranial hemorrhage or mass effect. No calvarial fracture.Thank you for allowing us to participate in the evaluation of this pa tient. Final Dictated: Rivas Mercado MD 03/28/19 21:01Signed: Rivas Johnson MD 03/28/19 21:03Transcribed by: VL Name Value Range Interpretation Code Description Data Danis rce(s) Supporting Document(s ) ID Date Data Source [id number] 03/28/2019 08:15:00 PM EST [facility] Name Value Range Interpretation Description Data Sup porting Code Source(s) Document(s ) Lactic Acid 0.8 mmol/L <=2.0 NO [facility] ID Date Data Source [id number] 03/28/2019 05:29:00 PM EST [facility] UA Microscopic added by hemant Gomez to an Abnormal Macroscopic Result. Name Value Range Interpretation Description Data Sup porting Code Source(s) Document(s ) UA WBC 0-5 NO [facility] UA RBC 0-2 NO [facility] UA Bacteria None Seen NO [facility] ID Date Data Source [id number] 03/28/2019 04:56:00 PM EST [facility] Name Value Range Interpretation Description Data Sup porting Code Source(s) Document(s ) UA Color Yellow NO [facility] UA Appear Clear AB [facility] UA pH 5.0-8.0 NO [facility] UA Spec Grav 1.026 1.005-1.030 NO [facility] UA Glucose Negative NO [facility] UA Ketones Negative NO [facility] UA Urobilinogen 0.2-1.0 NO [facility] UA Bili Negative NO [facility] UA Blood Negative AB [facility] UA Protein Negative AB [facility] UA Nitrite Negative NO [facility] UA Leuk Est Negative NO [facility] ID Date Data Source [id number] 04/02/2019 06:00:00 PM [facility] 1985 [phone] Microbiology - Blood CulturesPROCEDURE: Culture,Blood RCE: Blood BODY SITE:COLLECTED DATE/TIME: 16:06 EST RECEIVED DATE/TIME: 03/28/2019 17:13 ESTSTART DATE/TIME: 03/28/2019 17:13 EST FREE TEXT SOURCE:ORDERING PHYSICIAN: Mg Luna MD, Gladis CarlFINAL REPORTSFinal Report []Reported Date/Time: 04/02/2019 1 8:00 ESTNo growth at 5 days.PRELIMINARY REPORTSPreliminary Report []Reported Date/Time: 04/01/2019 18:00 ESTNo growth at 4 days.Preliminary Report []Reported Da te/Time: 03/31/2019 18:00 ESTNo growth at 3 days.Preliminary Report []Reported Date /Time: 03/30/2019 18:00 ESTNo growth at 2 days.Preliminary Report []Reported Date /Time: 03/29/2019 18:00 ESTNo growth at 1 day.Preliminary Report []Reported Date/ Time: 03/29/2019 12:00 ESTBlood culture incubating < or = 24 hours; negative to date Name Value Range Interpretation Code Description Data Danis rce(s) Supporting Document(s ) ID Date Data Source [id number] 03/28/2019 04:11:00 PM [facility] Patient Name: LASHAWN CABALLEROMRN: [id number] General DiagnosticACCESSION E XAM DATE/TIME PROCEDURE ORDERING PROVIDER [id number] 03/28/2019 16:05 XR Chest Portable Erin NARAYAN, Auth (Verified) EST Gladis CarlReason For Exam(XR Chest Portable) SepsisReportPROCEDURE: Radiograph Portable Chest 1 ViewCLINICAL HISTORY: SepsisSCRIPT INFORMATION: sepsisCOMPARISON: None.TECHNIQUE:Alfredo posterior radiographic view of the chest was performed.FINDINGS:The lungs are clear.T here is no evidence for pleural effusion.There is no evidence for pneumo thorax.The heart is unremarkable.The mediastinum and hilar soft tissues are u nremarkable.The bony thorax is unremarkable.IMPRESSION:Normal chest rad iograph.Thank you for allowing us to participate in the evaluation of this pa tient. Final Dictated: Rivas Mercado MD 03/28/19 16:09Signed: Rivas Johnson MD 03/28/19 16:11Transcribed by: VL Name Value Range Interpretation Code Description Data Danis rce(s) Supporting Document(s ) ID Date Data Source [id number] 04/02/2019 06:00:00 PM EST [facility] 1985 [phone] Microbiology - Blood CulturesPROCEDURE: Culture,Blood RCE: Blood BODY SITE:COLLECTED DATE/TIME: 15:34 EST RECEIVED DATE/TIME: 03/28/2019 16:10 ESTSTART DATE/TIME: 03/28/2019 16:10 EST FREE TEXT SOURCE:ORDERING PHYSICIAN: Mg Luna MD, Gladis CarlFINAL REPORTSFinal Report []Reported Date/Time: 04/02/2019 1 8:00 ESTNo growth at 5 days.PRELIMINARY REPORTSPreliminary Report []Reported Date/Time: 04/01/2019 18:00 ESTNo growth at 4 days.Preliminary Report []Reported Da te/Time: 03/31/2019 18:00 ESTNo growth at 3 days.Preliminary Report []Reported Date /Time: 03/30/2019 18:00 ESTNo growth at 2 days.Preliminary Report []Reported Date /Time: 03/29/2019 18:00 ESTNo growth at 1 day.Preliminary Report []Reported Date/ Time: 03/29/2019 12:00 ESTBlood culture incubating < or = 24 hours; negative to date Name Value Range Interpretation Code Description Data Danis rce(s) Supporting Document(s ) ID Date Data Source [id number] 03/28/2019 09:15:00 PM EST [facility] ADD ON Name Value Range Interpretation Code Description Data Supporting Source(s) Document(s ) Beta hCG <5 mIU/mL NA [facility] <5.......Negative5-25.....Indeterminate repeat testing is suggested in 2 4 days ifclinically indicated.>25......Pos itiveApproximate gestational age bHcg range (mIU/ml) ------- 0 1 week.............................. 5 50 1 2 weeks............................50 500 2 3 weeks...........................100 5,000 3 4 weeks...........................500 10,000 4 5 weeks.........................1,000 50,000 5 6 weeks........................10,000 100,000 6 8 weeks........................15,000 200,000 2 3 months.......................10,000 100,000 2nd trimester.......................3,000 50,000 3rd trimester.......................1,000 50,000 ID Date Data Source [id number] 03/28/2019 04:39:00 PM DEBBI[facility] Name Value Range Interpretation Code Description Data Supporting Source(s) Document(s ) Troponin- <0.03 <=0.05 THOMAS Pa I ng/mL [facility] ID Date Data Source [id number] 03/28/2019 04:38:00 PM EST [facility] Name Value Range Interpretation Description Data Sup porting Code Source(s) Document(s ) Glucose Lvl 194 65-99 [place] mg/dL [facility] BUN 12.0 6.0-20.0 NO [place] mg/dL [facility] Creatinine 1.11 0.40-1.0 [place] mg/dL 0 [facility] BUN/Creat 10.8 7.0-29.0 NO [place] Ratio ratio [facility] Sodium Lvl 135 136-145 [place] mmol/L [facility] Potassium Lvl 3.6 3.5-5.1 NO [place] mmol/L [facility] Chloride 104 98-107 [place] mmol/L [facility] CO2 22 23-29 [place] mmol/L [facility] AGAP 9 5-15 [facility] Calcium Lvl 9.4 8.6-10.0 NO [place] mg/dL [facility] Total Protein 8.2 6.0-8.3 NO [place] gm/dL [facility] Albumin Lvl 4.1 3.5-5.0 NO [place] gm/dL [facility] Glob 4.1 2.0-4.5 NO [place] gm/dL [facility] A/G Ratio 1.0 1.0-2.2 NO [place] ratio [facility] Bili Total 0.7 0.3-1.2 NO [place] mg/dL [facility] Alk Phos 56 IU/L 38-126 [facility] AST 19 IU/L 15-41 [facility] ALT 17 IU/L 7-40 [facility] ID Date Data Source [id number] 03/28/2019 04:33:00 PM [facility] Name Value Range Interpretation Code Description Data Danis rce(s) Supporting Document(s ) APTT 38.8 27.4-38.2 [facility] ID Date Data Source [id number] 03/28/2019 04:33:00 PM EST [facility] Name Value Range Interpretation Code Description Data Danis rce(s) Supporting Document(s ) INR 1.1 ratio 0.9-1.2 [facility] Indications INRProphylaxis of venous thromo-embolism: Non-hip surgery..... ..........................1.5 - 2.5 Hip surgery................................. ..2.0 - 3.0Deep Vein Thrombosis or Pulmonary Embolism........2.0 - 3.0Prevention of s ystemic embolism in valvular heart disease, tissue prosthetic heart valvesor acute [place].......................................2.0 - 3.5Prevention of embolism in mechanical heartvalves or recurrent systemic embolism.............3.0 - 4.5 PT 12.3 second(s) 10.2-12.9 [facility] ID Date Data Source [id number] 03/28/2019 04:33:00 PM [facility] Name Value Range Interpretation Description Data Sup porting Code Source(s) Document(s ) Lactic Acid 1.8 mmol/L <=2.[facility] ID Date Data Source [id number] 03/28/2019 04:30:00 PM DEBBIE Mcintoshbaysidecorbin [facility] Added by Discern Rule GLB_ADD_GFR_CMP Name Value Range Interpretation Code Description Data Danis rce(s) Supporting Document(s ) eGFR-AA 68 >=60 [facility] mL/min/1.[address] The CKD-EPI equation for non- [place]asmine r[place] individuals is used to calculate the estimated glomerular filtration rate (GF R). To estimate the GFR for Americans, multiply the provided GFR res ult by 1.16. The CKD-EPI equation is validated in individuals 18 years of age or older. It is less accurate in patients with extremes of muscle mass, restrictio n of dietary protein, ingestion of creatine, extra-renal metabolism of creatinine, or treatment with medications that affect renal tubular creatinine secretion.GFR Categor ies in Chronic Kidney Disease (CKD)GFR Category: GFR (mL/min/1.73 m2): Inte rpretation: G1 90 or greater Normal or high*G2 60-89 Mild decrease* G3a 45-59 Mild to moderate [id number] 30-44 Moderate to s evere decreaseG4 15-29 Severe decreaseG5 14 or less Kidney fa ilure eGFR-NEHEMIAS 56 mL/min/1.73m2 >=60 [facility] The CKD-EPI equation for non- [place]asmine r[place] individuals is used to calculate the estimated glomerular filtration rate (GF R). To estimate the GFR for Americans, multiply the provided GFR res ult by 1.16. The CKD-EPI equation is validated in individuals 18 years of age or older. It is less accurate in patients with extremes of muscle mass, restrictio n of dietary protein, ingestion of creatine, extra-renal metabolism of creatinine, or treatment with medications that affect renal tubular creatinine secretion.GFR Categor ies in Chronic Kidney Disease (CKD)GFR Category: GFR (mL/min/1.73 m2): Inte rpretation: G1 90 or greater Normal or high*G2 60-89 Mild decrease* G3a 45-59 Mild to moderate [id number] 30-44 Moderate to s evere decreaseG4 15-29 Severe decreaseG5 14 or less Kidney fa ilure ID Date Data Source [id number] 03/28/2019 04:21:00 PM EST [facility] Name Value Range Interpretation Description Data Sup porting Code Source(s) Document(s ) Neut Auto 65.7 % 50.0-80.0 NO [facility] Lymph Auto 27.7 % 14.0-44.0 NO [facility] Pierce Auto 5.7 % 0.0-12.0 NO [facility] Eos Auto 0.3 % 0.0-7.0 NO [facility] Baso Auto 0.6 % 0.0-3.0 NO [facility] Neut 4.9 2.0-8.4 NO [place] Absolute x10(3)/[facility] Lymph 2.1 0.6-4.8 NO [place] Absolute x10(3)/[facility] Pierce 0.4 0.0-1.1 NO [place] Absolute x10(3)/[facility] Eos Absolute 0.0 0.0-0.5 NO [place] x10(3)/[facility] Baso 0.0 0.0-0.3 NO [place] Absolute x10(3)/[facility] ID Date Data Source [id number] 03/28/2019 04:21:00 PM EST [facility] Name Value Range Interpretation Description Data Sup porting Code Source(s) Document(s ) WBC 7.4 4.0-10.5 NO [place] x10(3)/[facility] RBC 4.86 3.80-5.20 NO [place] x10(6)/[facility] Hgb 14.6 11.4-15.1 NO [place] gm/dL [facility] Hct 41.7 % 36.0-46.0 NO [facility] MCV 86 fL 80-98 NO [facility] MCH 30.0 pg 26.0-34.0 NO [facility] MCHC 34.9 32.0-36.0 NO [place] gm/dL [facility] RDW 13.3 % 11.0-15.0 NO [facility] Platelet 351 150-400 NO Daynamarivelcorbin x10(3)/mc [facility] MPV 7.4 fL 8.5-13.0 LO [facility] ID Date Data Source [id number] 09/06/2018 11:53:02 AM EDT [facility] [place] [facility] Reason for Visit and Comments: Proced ure [88] - ColposcopyVitals (Last Filed):BP 90/60 Pulse 64 Resp 18 Ht 5 6.54" (1 .69 m) Wt- 170 lb 9.6 oz (77.4 kg) LMP 08/27/2018 BMI 27.09 kg/ - l0Mrfigc History RecordedBeNanci Cao MD 09/06 11:52 AM SignedI have identified this patient to be Lashawn Caballero, - [birth year].Complaint: Referred for colposcopy. Pap "negative for art, hpv positive"Lashawn Caballero is a 32 year old female who presents [facility] todayfor colposcopy after an abnormal pap smear/positive HPV testingPast Pap Smear History:Negative f or art, hpv positiveRest of history as documented by MA reviewed with patient.R isk of assessed and test completed as needed. test negat iveAlternative methods for colposcopy discussed with patient in setting of kno wnor suspected .History reviewed for significant medical problems. Medication s and allergiesreviewed.If applicable, smoking cessation accessed with motivati onal interviewing aroundHPV clearance rates.Procedure Note:Time out taken : 2: 59 PMTeam: NANCI PALOMINO MD and Jeannie Caballero 1985 confirmed YesProcedure: Colposcopy confirmed by patient and team YesPosition correct for procedure YesEquipment for procedure available YesColposcopy procedure was ex plained to the patient and informed consent wasgiven for the procedure. A Pap smear was not performed. The colposcopic examwas satisfactory and the entire transformati on zone was visualized. Areas ofaceto-white were not visualized. Areas of punctuati on were not visualized.Biopsies were taken at: 12, 3 and 6 o clock. An ECC was per formed with sharpcurretage. Biopsies and/or ECC done by Dr. Palomino. Monsel s solutionwas applied with good hemostasis. The patient tolerated the procedure well.Col poscopic Impression: normalASSESMENT AND PLAN:Encounter DiagnosisName Primary? P regnancy examination or test, unconfirmed YesFollow up in 1-3 weeks fo r results by appointmentPerformed with Nasrin.Mira Berrios RN 09/06/2018 11 :52 AM SignedI have identified this patient to be Lashawn Caballero, -1985.Ht 5 6.54" (1.69 m) | Wt 170 lb 9.6 oz (77.4 kg) | LMP 08/27/2018 | BMI27.09 kg/m Chief ComplaintPatient presents with Procedure poscopMIRA Dave LPrima ry Diagnosis:R87.810 Cervical high risk human papillomavirus (HPV) DNA test positive Other Diagnoses:Z32.00 examination or test, pregna ncy unconfirmed R87.810 Cervical high risk human papillomavirus (HPV) DNAtest positive (Active) Comment:Billing Diagnosis Z32.00 Encounter for test, result unknown(Active) Comment:Billing DiagnosisPrescriptions as of 09/06/2018 Disp Refills Start End diphenhydrAMINE (BENADRYL) 25 MG O* 30 t * 0 05/04/2015 Class: E Prescribing Route: Oral Sig: Take ONE tablet (25 mg total) by mouth every 4-6 (four-six) hours as needed Es citalopram Oxalate 20 MG Oral Tab 07/10/2018 Class: Historical Me d Sig: Escitalopram Oxalate 20 MG Oral Tab 21 t* 3 08/06/2018 12/05/19 19 Class: E Prescribing Route: Oral Sig: Take ONE tablet (20 mg total) by mo uth daily Gabapentin 300 MG Oral Cap 42 c* 0 08/29/2018 Class : E Prescribing Route: Oral Sig: Take TWO capsules (600 mg total) by mouth 2 ( two) times a day ibuprofen 600 MG Oral tablet 40 t* 1 08/13/19 19 08/22/2018 Class: E Prescribing Route: Oral Sig: Take ONE tablet (600 mg total) by mouth every 6 (six) hours as needed for mild pain or moderate pain for up to 10 days Mirtazapine 15 MG Oral Tab 4 Class: Historical Med Sig: Mirtazapine 15 MG Oral Tab 60 t * 0 08/06/2018 Class: E Prescribing Route: Oral Sig: Take THREE tablets (45 mg total) by mouth daily Take three (45 mg total) by mout h at bedtime prazosin 2 MG Oral capsule 30 c* 0 05/04/2015 Cla ss: E Prescribing Route: Oral Sig: Take ONE capsule (2 mg total) by mouth nightl y Sertraline HCl (ZOLOFT) 25 MG Oral* 30 t* 0 05/04/2015 Class: E Pre scribing Route: Oral Sig: Take ONE tablet (25 mg total) by mouth daily S ulfamethoxazole-Trimethoprim (SMITA* 28 t* 0 08/19/2018 09/02/2018 Class: E Prescribing Route: Oral Sig: Take ONE tablet by mouth 2 (two) times a day for 14 daysAllergies As of Date: 09/03/2018 Noted Allergy ReactionFISH ALLERGY 06/22/2014 7 - AnaphylaxisLEVAQUIN 06/22/2014 1 - Rash Comments: hivesDate Reviewed: 09/03/2018Reviewed b y: Mira Berrios RN - ReviewedLevel of Service:86980.0* PROCEDURE BILLING ONLY Historical Information ----- ------Family History Problem Relation Age of Onset Negative History Mother Negative History Father Other Sister Comments: Brain tumor Psychiatry Brother Comments: Adhd Psychiatry Brother Comments: ADHDFamily S tatus - Relation Status Age at Mother Father Sister Brother BrotherSocial History Marital Status: Spouse: Y ears of Education: # children: 4Social History Narrative Emi ing at treatment facility for 3-6 months.Social History Topics Tobacco Us e: Yes Cigarettes (Packs/Day): .5 Years: 12 Start Date: Alcohol Use: No Drug 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 Sexually Active: Yes Partners with: Male Control/Protection: SurgicalImmunization s Administered Tdap Name Value Range Interpretation Code Description Data Danis rce(s) Supporting Document(s ) ID Date Data Source [id number] 09/03/2018 03:19:00 PM EDT [facility] Name Value Range Interpretation Code Description Data Supporting Source(s) Document(s ) neg neg [facility] [place] TEST, URINE [facility] ID Date Data Source [id number] 09/06/2018 11:38:00 AM EDT [facility] Name Value Range Interpretation Description Data Sup porting Code Source(s) Document(s ) WOMEN S HEALTH BENIGN [facility] [place] PATHOLOGY [facility] .. WOMEN S HEALTH PAT HOLOGY REPORT ..SURGICAL #: [id number] ID: [id number] SOURCE: Cervix, EndocervixCLINICAL DATA: Provided Diagnosis Code: R87.810CLINICAL : A. CERVICAL BIOPSY B. ENDOCERVICAL CURETTAGEGROSS: A. RECEIVED IN FORMALI N AND LABELED WITH PATIENT IDENTIFICATION, CONSISTS OF THREE PIECES OF SOFT SCHNEIDER TISSUE MEASURING FROM 0.2 X 0.2 X 0.2 CM TO 0.3 X 0.2 X 0.2 CM. THE SPECIMEN IS ENTIRELY SUBMITTED IN ONE CASSETTE. B. RECEIVED IN FORMALIN AND LABELED WITH PATIENT IDENTIFICATION, CONSISTS OF FRAGMENTS OF MUCOID, RED-SCHNEIDER, SOFT TISSUE AND BLOOD MEASURING 0.3 X 0.3 X 0.2 CM IN AGGREGATE. THE SPECIMEN IS FILTERED AND SUBMITTED IN ONE CASSETTE.DIAGNOS IS: A. EXOCERVICAL TISSUE, NEGATIVE FOR DYSPLASIA. B. EXOCERVICAL AND ENDOCERV ICAL MUCOSA, NEGATIVE FOR DYSPLASIA. IMMUNOHISTOCHEMICAL STAINING FOR P16 IS NEGATIVE, AND FOR KI67 IS NORMAL. THE STAINING PATTERN SUPPORTS THE LORNA GNOSIS. ANTIBODIES WERE PROCESSED A DOUBLE STAIN.COMMENT: A POSITIVE CONTROL FOR EACH ANTIBODY HAS BEEN REVIEWED AND ACCEPTED, 2 IHC STAIN(S) WERE PERFORMED ON BLOCK(S) Willian REYNOLDS M.D., PH.D. LALA SWANSON This report was electronically signed. 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: 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 am [50] Wound [395] - lower right armVitals (Last Filed):BP 110/76 (Orthostatic Site : Arm - Left, Orthostatic Pos- ition : Sitting, Orthostatic Cuff Size : Adult) Pulse 6- 8 Temp 98 F (36.7 C) (Tympanic) Resp 16 Ht 5 6.7- 5" (1.695 m) Wt 165 lb (74.8 kg) LMP 07/15/2018 (Exac- t Date) SpO2 99% BMI 26.04 kg/r2Dbvkhg History RecordedCintia Daniel 08/12/2018 11:33 AM SignedI have identified this patient to be Lashawn CaballeroGLORY - 1985.Chief ComplaintPatient presents with 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am Wound lower right armBP 110/7 6 (Orthostatic Site : Arm - Left, Orthostatic Position : Sitting,Orthostatic Cuff Size : Adult) | Pulse 68 | Temp 98 F (36.7 C) (Tympanic)| Resp 16 | Ht 5 6.75" (1.69 5 m) | Wt 165 lb (74.8 kg) | LMP 07/15/2018(Exact Date) | SpO2 99% | BM I 26.04 kg/Maria Luisa De Luna FNP 08/12/2018 11:33 AM SignedChief ComplaintPatient p resents with 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 Yes, confirmed primary dentist with patientPatient s last denta l visit? Upcoming appointment scheduledPatient was referred to dentistry? Yes, patient referred to dentistrySUBJECTIVE:Lashawn Caballero is here for routine pap and checkup. I have reviewed and updatedthe history section of her record.Social HistorySocioeconomic Histo ry Marital status: Spouse name: Not on file Number of children: 4 Years of ed ucation: Not on file Highest education level: Not on fileSocial Needs Financial resou rce strain: Not on file Food insecurity - worry: Not on file Food insecurity - inability : Not on file Transportation needs - medical: Not on file Transportation needs - non- medical: Not on fileOccupational History Occupation: in treatment for addictionTo bacco Use Smoking status: Current Every Day Smoker Packs/day: 0.50 Years: 12.00 P ack years: 6.00 Types: Cigarettes Smokeless tobacco: Never UsedSubstance and Sexual Activity Alcohol use: No Drug use: 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 Yes at least 2-3 servings/day calcium? Y es avoids junk food? NoExercises regularly? YesViolence at home? NoCo ntraception: Does not need contraceptionSafer sex: Knows and practicesAllergiesAller gen Reactions Fish Allergy Anaphylaxis Levaquin Rash hivesPatient s last menstrual kelsi od was 07/15/2018 (exact date).ROS: Feeling well. No urinary tract symptoms. 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 R OS: normal menses, noabnormal bleeding, pelvic pain or discharge, no breast pain or new or enlarginglumps on self exam.OBJECTIVE:BP 110/76 (Orthostatic Site : Arm - Left, O rthostatic Position : Sitting,Orthostatic Cuff Size : Adult) | Pulse 68 | Temp 98 F (36.7 C) (Tympanic)| Resp 16 | Ht 5 6.75" (1.695 m) | Wt 165 lb (74.8 kg) | LMP 07/15/2018(Exact Date) | SpO2 99% | BMI 26.04 kg/m Body mass index is 26.04 kg/(m^2 ).The patient appears well, in NAD.BREAST EXAM:defer until follow as patient getti ng menses any dayPELVIC EXAM: normal vagina and vulva, vaginal discharge described as cr eamy andwhite, normal cervix without lesions, polyps or tenderness, uterus normal size ,shape, consistency, no mass or tenderness, adnexa normal in size without massor ten dernessPHYSICAL EXAMINATION:General appearance - alert, mild distress, cooperative, smili ngSkin - positives: right forearm abscess, wound dark discoloration, with 0.5 cmopening, with yellowish dischargeHead - Normocephalic. No masses, lesions, tenderness or abnormali tiesEyes - conjunctivae/corneas clear. Pupils equal, round, reactive to light andaccom modation, Extraocular muscle/s intact. Fundi benignEars - external ears normal. Can als clear. TM s normal.Nose/Sinuses - Nares normal. Septum midline. Mucosa normal. N o drainage orsinus tenderness.Oropharynx - Lips, mucosa, and tongue normal. Teeth and gum s normal.Neck - Neck supple. No adenopathy. Thyroid symmetric, normal size, has left sided scar from previous MRSA wound I&DBack - Back symmetric, no curvature. ROM decre ased lateral ROM, . No CVAtenderness.Lungs - Percussion normal. Good diaphragmatic e xcursion. Lungs clear. Patientreports having partial lobeectomy due to MRSA infection (scar on upper rightback)Heart - PMI normal, No lifts, heaves, or thrills. RRR. No mur murs, clickgallops or rubAbdomen - Abdomen soft, non-tender. BS normal. No masses, orga nomegalyExtremities - positive findings: right forearm wound described above,Extremitie s normal. No deformities, edema, or skin discoloration.ASSESSMENT:well womanPLAN: pap smearreturn annually or prnReviewed healthy eating, exercise: YesReviewed HIV/STD/ unwanted prevention: YesCounseled about seat belt/helmet use: YesCounsel ed about smoke detectors: Yes(Z00.00) Routine general medical examination at a health care facility(primary encounter diagnosis)Comment: wound cx right forear mPlan: LIPID PANEL, CBC WITH DIFFERENTIAL AND PLATELETS, COMP METABOLIC PANEL, TSH, H IGH SENSITIVITY (SERUM), VITAMIN B12 (CYANOCOBALAMIN), 25 HYDROXY VITAMIN D(Z 76.89) Referral of patientComment: pt states pt needs all teeth removed and dentures fit tedPlan: CONSULT TO DENTISTRY(Z12.4) Screening for malignant neoplasm of cervixComment: white, creamy discharge, swab obtainedPlan: THINPREP AND HPV(M54.40) Back pain of ren mbosacral region with sciaticaComment: RTC 2 weeksPlan: ibuprofen 600 MG Oral tablet( T14.8XXA) Wound drainageComment: sent todayPlan: CULTURE, WOUND(S51.801A) Open wound of r ight forearm, initial encounterComment:Plan: CULTURE, WOUNDNaomi Shaina Fu Dawn 08/12/2018 2:13 PM SignedThin prep and wound culture of right lower arm sent to [facility].Bernie Daniel 08/12/2018 2:13 PM SignedAddended by: BERNIE DANIEL o n: 08/12/2018 02:13 PM Modules accepted: Bernie Bowers 08/12/2018 2:17 P M SignedAddended by: BERNIE DANIEL on: 08/12/2018 02:17 PM Modules accepted: OrdersPrimary Diagnosis:Z00.00 Routine general medical examination at a health care facility Other Diagnoses:Z76.89 Referral of patient Z12 .4 Screening for malignant neoplasm of cervix Z13.0 Screening for iron deficiency anemia M54.40 Back pain of lumbosacral region with sc iatica T14.8XXA Wound drainage S51.801A Open wound of right forearm, initial encounter Z00.00 Encounter for general adult me dical examinationwithout abnormal findings (Active) Comm ent:Billing Diagnosis Z76.89 Persons encountering health services in otherspecified circumstances (Active) Comment:Billing Diagnosis Z12.4 Encounter for screening for malignant neoplasm ofcervi x (Active) Comment:Billing Diagnosis Z13.0 Encounter for screening for diseases of the bloodand blood-forming organs and certain disorders involving the immune mechanism(Active) Comment:Billing Diagnosis M54.40 Lumbago with sciatica, unspeci fied side (Active) Comment:Billing Diagnosis T14.8XXA Other injury of unspecified body region, initialencounter (Active) Comment:Billing Diagnosis S51.801A Unspecified open wound of right forearm, initialencounter (Active) Comm ent:Billing Diagnosis N89.8 Vaginal discharge N89.8 Other specified noninflammatory disorders of vagina(Active) Comment:Billing DiagnosisPrescriptions as of 08/12/2018 Disp Refills S tart End * diphenhydrAMINE (BENADRYL) 25 MG O* 30 t* 0 05/04/2015 Class: E Prescribing Route: Oral Sig: Take ONE tablet (25 mg total) by mouth every 4-6 (four-six) hours as needed * Escitalopram Oxalate 20 MG Oral Tab 07/10/2018 Class: Historical Med Sig: * Escitalopram Oxalate 20 MG Or al Tab 21 t* 3 08/06/2018 12/04/2018 Class: E Prescribing Route: Oral S ig: Take ONE tablet (20 mg total) by mouth daily * Gabapentin 300 MG Oral Cap 42 c* 0 08/06/2018 Class: E Prescribing Route: Oral Sig: Take TWO capsules (600 mg total) by mouth 2 (two) times a day * ibuprofen 600 MG Oral tablet 40 t * 1 08/12/2018 08/22/2018 Class: E Prescribing Route: Oral Sig: Take ONE tablet (600 mg total) by mouth every 6 (six) hours as needed for mild pain or moderate pain for up to 10 days * Mirtazapine 15 MG Oral Tab 07/10/2018 Class: Historical Med Sig: * Mirtazapine 15 MG Oral Tab 60 t * 0 08/06/2018 Class: E Prescribing Route: Oral Sig: Take THREE tablets (45 mg total) by mouth daily Take three (45 mg total) by mouth at bedtime * prazo sin 2 MG Oral capsule 30 c* 0 05/04/2015 Class: E Prescribing Rout e: Oral Sig: Take ONE capsule (2 mg total) by mouth nightly * Sertraline HCl (ZOLOFT) 25 MG Oral* 30 t* 0 05/04/2015 Class: E Prescribing Route: Oral S ig: Take ONE tablet (25 mg total) by mouth dailyAllergies As of Date: 08/12/2018 N oted Allergy ReactionFISH ALLERGY 06/22/2014 7 - AnaphylaxisLE VAQUIN 06/22/2014 1 - Rash Comments: hivesDate Reviewed: 08/12/2018Reviewed by: Maria Luisa Fu FNP - ReviewedLevel of Service:[id number] [facility] E&M ESTAB PT; 18-39 YR Historical Information --------- --Family History Problem Relation Age of Onset Negative History Mother Negative History Father Other Sister Comments: Brain tumor Psychiatry Brother Comments: Adhd Psyc hiatry Brother Comments: ADHDFamily Status - Relation Status Age at Mother Father Sister Brother BrotherSocial H istory Marital Status: Spouse: Years of Education: # children: 4Social History Narrative Living at treatment facility for 3-6 mon ths.Social History Topics Tobacco Use: Yes Cigarettes (Packs/Day): .5 Years: 12 Start Date: Alcohol Use: No Drug 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 Sexua lly Active: Yes Partners with: Male Control/Protection: Surgic alImmunizations Administered Tdap 06/22/2014 Name Value Range Interpretation Code Description Data Danis rce(s) Supporting Document(s ) ID Date Data Source [id number] 08/16/2018 01:10:00 PM EDT [facility] [place] [facility] Name Value Range Interpretation Code Description Data Danis rce(s) Supporting Document(s ) 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 REPORT NILM The [facility] DIAGNOSIS: Negative for intra epithelial lesion or malignancyADEQUACY: Satisfactory for evaluation / Sat isfactory for evaluation Scant ce llularity.COMMENT: This Pap smear was manually screened.SPECIMEN DANIS RCE: Pap and HPV DNA Genotyping 16,18, VAGINALCLINICAL INFORMATION: LMP: 4/15/2 019 Provided Diagnosis Codes: T14.8XXA,S5 1.801A,Z12.4,N89.8 Cervicovaginal cytology should be considered a screening procedure subject to false neg atives and false positives. Results are more reliable when a satisfactory sample is obtained on a r egular repetitive basis, and should be interpreted together with past and current clinical data.ELECTRONICALLY SIGNED BY: Pathologist Review By: Milady Calhoun M.D. Case Electronically Signed 08/16/2018 CASE COMMENTS: The specificity and positive predictive value of high risk HPV for LINDSAY 2+ on biopsy varies according to different studies; in one study it is approximately 30-40%, depending on the population (Sanjana et al, Cancer Epid emiological Biomarkers, Nov2007). Therefore, cytology may be negative in the setting of HPV infection. Follow up as per ASCCP guidelines. HPV HR NON 16/18 Detected Abnormal (applies to [facility] For non-numeric results) Family He alth HPV GENOTYPE, 18 Detected Abnormal (applies to [facility] For non-numeric results) Family He alth HPV GENOTYPE, 16 Not Detected The [facility] HPV High Risk DNA (Non 16/18) (1,3,4,5)H PV High Risk DNA Type 18 (1,3,4,5)HPV High Risk DNA Type 16 (1,2,3,4,5)(1)The deric (R) HPV test is FDA-cleared for ThinPrep(R) specimens and detects genomic HPV DNA in the polymorphic L1 region in 14 subtypes: Type 16, Type 18, and other high risk ty pes (31,33,35,39,45,51,52,56,58,59,66,68). The test has been modified and validated for use in SurePath(TM) specimens.(2)HPV types 16 and/or 18 that were Not Detecte d were undetectable or below the pre-set threshold.(3)The non-repeat rate for HPV genotyping assays varies from 5 to 15%. In the NILM cytology category, there is a l ow positive predictive value (PPV = 15-20%) for CIN2+ with a positive high risk HPV result.(4)This test was evaluated and its performance characteristics determined [employer]. It has not been cleared or approved by the U.S. Food and Drug Administration. The FDA has determined that such clearance or approval is not n ecessary. [employer] is certified under the Clinical Laboratory Improvement Amendments of 1988 (CLIA) as qualified to perform high complexity cli nical testing. This test is used for clinical purposes. It should not be rega rded as investigational or for research.(5)Results should be interprete d together with past and current clinical and laboratory data. ID Date Data Source [id number] 08/15/2018 01:56:00 PM EDT [facility] Name Value Range Interpretation Description Data Sup porting Code Source(s) Document(s ) CULTURE, SEE NO GROWTH The WOUND, BELOW [place] ANAEROBIC [facility] NO ANAEROBES ISOLATEDSITE: R LOWER ARM CULTURE, WOUND SEE BELOW NO GROWTH Abnormal (applies to [facility] [place] For non-numeric results) Family He alth SITE: R LOWER ARMORGANISM #1: FEW COLO NIES OF METHICILLIN RESISTANT STAPH AUREUS (MRSA)POSITIVE FOR METHICILLIN RESISTANT STAPH AUREUS (MRSA). CONTACTPRECAUTION IS RECOMMENDED. OXACILLIN (CEFOXITIN)-SUSCE PTIBLE STAPHYLOCOCCI CAN BE CONSIDEREDSUSCEPTIBLE TO: AMOXICILLIN-CL AVULANATE, AMPICILLIN-SULBACTAM,PIPERACILLIN-TAZOBA CTAM, TICARCILLIN-CLAVULANATE, CEFACLOR, CEFDINIR,CEPHALEXIN, CEFPODOXIME, CEFPRO ZIL, CEFUROXIME, LORACARBEF, CEFAMANDOLE,CEFAZOLIN, CEFEPIME, CEFMETA ZOLE, CEFONICID, CEFOPERAZONE, CEFOTAXIME,CEFOTETAN, CEFTIZOXIME, CEFTR IAXONE, CEFUROXIME, CEPHALOTHIN,CEFTAROLINE, MOXALACTAM, DORIPENEM, ERTAPENEM, IMIPEN EM, MEROPENEM.RIFAMPIN SHOULD NOT BE USED ALONE FOR ANTIMICROBIAL THERAPY. ORGANIS MS THAT ARE SUSCEPTIBLE TO TETRACYCLINE ARE ALSO CONSIDEREDSUSCEPTIBLE TO DOXYCYCLIN E AND MINOCYCLINE. MORE THAN 90% OF S.AUREUS ARE RESISTANT TO PENICILLIN IN THE UNITE DSTATES. THUS; ROUTINE TESTING IS NOT ALWAYS INDICATED FOR PENICILLINS.METHICILLIN RE SISTANT STAPH AUREUS Drug NANDINI Interps CEFTAROLINE <=0.5 SCIPROFLOXACIN <=1 SCLINDAMYCIN >4 RERYTHRO MYCIN >4 RGENTAMICIN <=4 SLEVOFLOXACIN <=1 SLINEZOLID 2 SOXACILLIN >2 RRIFAMPIN <= 1 STETRACYCLINE <=4 STIGECYCLINE STRIMETH OPRIM/SUL <=0.5/9.5 SVANCOMYCIN 1 S GRAM STAIN, WOUND SEE BELOW NEGATIVE The [facility] NO WBC SNO ORGANISMS SEENSITE: R LOWER ARM ID Date Data Source [id number] 08/13/2018 09:43:00 PM EDT [facility] Name Value Range Interpretation Description Data Sup porting Code Source(s) Document(s ) andGDT NON FASTING [facility] ARMANI NEGATIVE NEGATIVE The SPECIES [facility] SITE: VAGINALNotes: Simultaneous infect ions by more than one pathogen arecommon. A negative result for Armani, Gardnerella and/orTrichomonas indicates nucleic acid from less than 1 x 10(4)Armani cells, 2 x 10(5) CFU (colony forming organisms) ofG. vaginalis or 5 x 10(3) trichomonads, res pectively, may bepresent in the patient sample. The Armani species tested are: C. albicans, C. glabrata, C. kefyr, C. krusei, C. parapsilosis,and C. tropicali s. TRICHOMONAS VAGINALIS NEGATIVE NEGATIVE The Inst itute [facility] SITE: VAGINALThe BD Affirm Microbial Id entification test is based on the principles of nucleic acid (NA) hybridization. GARDNERELLA VAGINALIS NEGATIVE NEGATIVE The [facility] SITE: VAGINAL ID Date Data Source [id number] 08/06/2018 03:43:42 PM EDT [facility] Reason for Visit and Comments: Aras[facility] [42] - Recently released from rehab Medication Request [[id number]] - requesting antidepressan t medication to be filledVitals (Last Filed):BP 104/78 (Orthostatic Site : Arm - Left, Orthosta tic Pos- ition : Sitting, Orthostatic Cuff Size : Adult) Pulse 6- 9 Temp 97.8 F (36.6 C) (Tympanic) Resp 18 Ht 5 6- .75" (1.695 m) Wt 164 lb 12.8 oz (74.8 kg) LMP 2018 (Exact Date) SpO2 97% BMI 26. 01 kg/e8Mhyvem History RecordedFederica Gibson 08/06/2018 3:43 PM SignedI have identifi ed this patient to be Lashawn Caballero -1985.Chief ComplaintPatient [facility] with [facility] Medication Request requesting antidepressant medication to be filledBP 104/78 (Orthostatic Site : Arm - Left, Orthostatic Position : Sitting,Orthostat ic Cuff Size : Adult) | Pulse 69 | Temp 97.8 F (36.6 C) (Tympanic) | Resp 18 | Ht 5 6.75&qu ot; (1.695 m) | Wt 164 lb 12.8 oz (74.8 kg) | LMP07/15/2018 (Exact Date) | SpO2 97% | BMI 26.01 kg/mShanygne ArthurMaria Luisa Alaniz, CUSTODIAL FOREMAN 08/06/2018 3:43 PM SignedChief Complain tPatient presents with [facility] Care Recently released from rehab Medication Request requesti ng antidepressant medication to be filledI have identifed the patient as Lashawn Caballero 1985Ju out of [facility] in [place], for rehab.Consult to Mental health. Goes to [facility] scored 3.with medication on Phq9 depression assessment tool.Discussed medication: Yes. Pt agree s to meds at this time. Pt started on seeorders medication. Discussed risks,benefits and side effects of medication Yes.Discussed therapy: Yes. Pt agrees to Social Work therapy referral . Discussedreferral to Patient Education Group: Yes. Patient is informed to schedule afollow up visit in 2 weeks. Pt s self management goal is to start SW here andmedication management.Mental Health Screenings and AssessmentsPHQ-2: Over the the past two weeks, how often have you been bothe red by thefollowing...?PHQ-2 Total: 1PHQ-9:Over the past two weeks, how often have you been bothe red by thefollowing...? (Leda las ultimas 2 semanas, con que frecuencia le hanmolestado los siguientes problemas...?)1. Little interest or pleasure doing things (Tener poco interes o disfr utarpoco de hacer cosas): Not at all2. Feeling down, depressed, or hopeless (Sentirse desanim ado/a, deprimido/a, osin darlene): Several days3. Trouble falling or staying asleep, or sl eeping too much (Tener problemaspara dormir (coger el sueno o mantenerlo) o tener mas sueno de la cuenta): Notat all4. Feeling tired or having little energy (Sentirse cansado/a o con pocaene rgia): Not at all5. Poor appetite or overeating (Tener poco apetito o comer en exceso): Several days6. Feeling bad about yourself- or that you are a failure or have let yourselfor your fami ly down (Sentimientos de culpabilidad, desesperanza o perdida deautoestima sensacion de ser un fracaso o louise dece pcionado a ragland griselda o simismo): Not at all7. Trouble concentrating on things such as reading the newspaper or watchingtelevision (Tener problemas para concentrarse, amy por ejemplo para leer elperiodico o issac la television): Not at all8. Moving or speaking slowly that other people have n oticed. Or being sofidgety or restless that you have been moving around more than usual. (Moverseo hablar lentamente que los demas lo shah notado o estar mas inquieto ointranquilo de lo habitual): Not at all9. Thoughts that you would be better off or of hurting yourself insomewa y. (Tener pensamientos de que seria mejor estar muerto/a o de hacersedano a si mismo de alguna louie ra): Not at allPHQ-9 Total: 2GAD-7: Over the the past two weeks, how often have you been bothered by thefollowing...?1. Feeling nervous, anxious, or on edge: Several days2. Not being able to s top or control worrying: Not at all3. Worrying too much about different things: Not at all4. Tro uble relaxing: Not at all5. Being so restless that it s hard to sit still: Not at all6. Becoming easily annoyed or irritable: Not at all7. Feeling afraid as if something awful might happen: Not at allGAD-7 Total: 1Pt denies an drug use since discharge on 07/10/18.(F32.4) Major depression sing le episode, in partial remission (HCC) (primaryencounter diagnosis)Comment:Plan: Mirtazapine 15 M G Oral Tab, Escitalopram Oxalate 20 MG Oral Tab(F41.9) AnxietyComment: ordered suppl y until appointment, and med management appointmentPlan: Mirtazapine 15 MG Oral Tab(F33.1) Major depressive disorder, recurrent, moderate (HCC)Comment:Plan: [facility](G62.9) NeuropathyComment:Plan: Gabapentin 300 MG Oral CHARLES Marie.Primary Diagnosis: F32.4 Major depression single episode, in partial remission (HCC) Other Diagn oses:F41.9 Anxiety Z71.7 Encounter for human immunodeficiency vir us (HIV)counseling Z53.20 Surgical or procedure not carried out because ofpati ent s decision F33.1 Major depressive disorder, recurrent, moderate (HCC) G62.9 Neuropathy F32.4 Major depressive disorder, single epis ode, inpartial remission (Active) Comment:Billing Diagnosis F41.9 Anxiety disorder, unspecified (Active) Comment:Billing Di agnosis Z71.7 Human immunodeficiency virus (HIV) counseling(Active) Comment:Billing Diagnosis F33.1 Major depressive disorder, r ecurrent, moderate(Active) Comment:Billing Diagnosis G62.9 Polyneuropathy, unspecified (Active) Comment:Billing Diagno sisPrescriptions as of 08/06/2018 Disp Refills Start End diphenhydrAMINE (BE NADRYL) 25 MG O* 30 t* 0 05/04/2015 Class: E Prescribing Route: Oral Sig: Take ONE tablet (25 mg total) by mouth every 4-6 (four-six) hours as needed Escitalopram Oxalate 20 MG Oral Tab 07/10/2018 Class: Historical Med Sig: * Escital opram Oxalate 20 MG Oral Tab 21 t* 3 08/06/2018 12/04/2018 Class: E Prescribing Rout e: Oral Sig: Take ONE tablet (20 mg total) by mouth daily * Gabapentin 300 MG Oral Cap 42 c* 0 08/06/2018 Class: E Prescribing Route: Oral Sig: Take TWO capsules ( 600 mg total) by mouth 2 (two) times a day Mirtazapine 15 MG Oral Tab 07/10/2018 Class: Historical Med Sig: * Mirtazapine 15 MG Oral Tab 60 t * 0 08/06/2018 Class: E Prescribing Route: Oral Sig: Take THREE tablets (45 mg t otal) by mouth daily Take three (45 mg total) by mouth at bedtime prazosin 2 MG Oral c apsule 30 c* 0 05/04/2015 Class: E Prescribing Route: Oral Sig: Take ONE capsule (2 mg total) by mouth nightly Sertraline HCl (ZOLOFT) 25 MG Oral* 30 t* 0 05/04/2015 Class: E Prescribing Route: Oral Sig: Take ONE tablet (25 mg total) by mo uth dailyAllergies As of Date: 08/06/2018 Noted Allergy ReactionFISH ALLERGY 06/22/2014 7 - AnaphylaxisLEVAQUIN 06/22/2014 1 - Rash Co mments: hivesDate Reviewed: 08/06/2018Reviewed by: Maria Luisa Fu FNP - ReviewedThe [facility] Shaheen pagan:[id number] OFFIC/OUTPT VISIT E&M EST LOW-MOD SEVER* Historical Information Family History Problem Relation Age of Onset Negative History Mother Negative History Father Other Sister Comments: Brain tumor Psychiatry Brother Comments: Adhd Psychiatry Brothe r Comments: ADHDFamily Status - Relation Status Age at Mother Father Sister Brother BrotherSocial History Marital Status: Single Spouse: Y ears of Education: # children: 4Social History Narrative Living at treatment f acility for 3-6 months.Social History Topics Tobacco Use: Yes Cigarettes (Packs/Day): .5 Years: 12 Start Date: Alcohol Use: No Drug 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 Sexu ally Active: Yes Partners with: Male Control/Protection: SurgicalImmuni zations Administered Tdap 06/22/2014 Name Value Range Interpretation Code Description Data Danis rce(s) Supporting Document(s ) Procedure Social History Code Duration Value Status Description Data Source(s ) Smoking 03/28/2019 Smokes completed Smokes tobacco [place] [facility] 03:27:07 PM tobacco daily daily (finding) - Vas torri EST (finding) [facility] Smoking 03/28/2019 Smokes completed Smokes tobacco [place] He alth 03:27:07 PM tobacco daily daily (finding) - Vas torri EST (finding) [facility] Smoking 03/28/2019 Smokes completed Smokes tobacco [place] He alth 03:27:07 PM tobacco daily daily (finding) - Vas torri EST (finding) [facility] Smoking 03/28/2019 Smokes completed Smokes tobacco [place] He alth 03:27:07 PM tobacco daily daily (finding) - Vas torri EST (finding) [facility] Smoking 03/28/2019 Smokes completed Smokes tobacco [place] He alth 03:27:07 PM tobacco daily daily (finding) - Vas torri EST (finding) [facility] Smoking 03/28/2019 Smokes completed Smokes tobacco [place] [facility] [place] 03:27:07 PM tobacco daily daily (finding) - Vas torri EST (finding) [facility] Smoking 03/28/2019 Smokes completed Smokes tobacco [place] 03:27:07 PM tobacco daily daily (finding) - Vas torri EST (finding) [facility] Smoking 03/28/2019 Smokes completed Smokes tobacco [place] [facility] 03:27:07 PM tobacco daily daily (finding) - Vas torri EST (finding) [facility] Tobacco smoking 11/25/2018 Current every The In stitute status NHIS 12:00:00 AM day smoker For Family EDT Health Tobacco use and 11/25/2018 Never used The Insti tute exposure 12:00:00 AM For Family EDT Health Alcohol intake 11/25/2018 Current completed Current [facility] 12:00:00 AM non-drinker non-drinker of For Fami ly EDT of alcohol alcohol (finding) Health (finding) Cigarettes 11/25/2018 UNK The [place] smoked current 12:00:00 AM For Famil y (pack per day) - EDT Health Reported Cigarette 11/25/2018 UNK The [place] pack-years 12:00:00 AM For Family EDT Health Tobacco use and 11/25/2018 Never used The Insti tute exposure 12:00:00 AM For Family EDT Health Tobacco smoking 11/25/2018 Current every completed Current every day The [place] status NHIS 12:00:00 AM day smoker smoker For Family EDT Health Cigarettes 11/25/2018 UNK completed The [place] smoked current 12:00:00 AM For Famil y (pack per day) - EDT Health Reported Cigarette 11/25/2018 UNK completed The [place] pack-years 12:00:00 AM For Family EDT Health Cigarette 10/14/2018 UNK completed The [place] pack-years 12:00:00 AM For Family EDT Health Cigarettes 10/14/2018 UNK completed The [place] smoked current 12:00:00 AM For Famil y (pack per day) - EDT Health Reported Smoking 10/14/2018 Current every completed Current every day The [place] 12:00:00 AM day smoker smoker For Family EDT Health Cigarette 09/03/2018 UNK completed The [place] pack-years 12:00:00 AM For Family EDT Health Cigarettes 09/03/2018 UNK completed [facility] [place] smoked current 12:00:00 AM For Famil y (pack per day) - EDT Health Reported Smoking 09/03/2018 Current every completed Current every day [facility] 12:00:00 AM day smoker smoker For Family EDT Health Cigarette 08/12/2018 UNK completed [facility] pack-years 12:00:00 AM For Family EDT Health Cigarettes 08/12/2018 UNK completed [facility] [place] smoked current 12:00:00 AM For Famil y (pack per day) - EDT Health Reported Smoking 08/12/2018 Current every completed Current every day [facility] [place] 12:00:00 AM day smoker smoker For Family EDT Health Cigarette 08/06/2018 UNK completed [facility] pack-years 12:00:00 AM For Family EDT Health Cigarettes 08/06/2018 UNK completed [facility] [place] smoked current 12:00:00 AM For Famil y (pack per day) - EDT Health Reported Smoking 08/06/2018 Current every completed Current every day [facility] [place] 12:00:00 AM day smoker smoker For Family EDT Health Sex assigned at Female Female The [facility] History of tobacco Cigarette Smoker [facility] Family [facility] History of tobacco Cigarette Smoker completed Cigarette S moker The [facility] use [facility] Sex assigned at Female Female [facility] Sex assigned at Female Female [facility] Substance Abuse UNK completed [facility] Sex assigned at Female Female [facility] Sex assigned [facility] Female Female [facility] Substance Abuse UNK completed [facility] [place] Substance Abuse UNK completed [facility] [place] [facility] Substance [facility] UNK completed [facility] [place] [facility] Substance Abuse UNK completed [facility] [place] [facility] Substance Abuse UNK completed [place] [place] Substance Abuse UNK completed [facility] [place] [facility] Substance Abuse UNK completed [place] [facility] [place] Alcohol intake No completed The [facility] For [facility] Cigarette Smoker completed Cigarette Smoker [facility] Alcohol intake No completed The [facility] For [facility] Cigarette Smoker completed Cigarette Smoker e [facility] Alcohol intake No completed The [facility] For [facility] Cigarette Smoker completed Cigarette Smoker Th e [facility] Alcohol intake No completed The [facility] Cigarette Smoker completed Cigarette Smoker [facility] Sex assigned at Female Female [facility] Vital Signs ID Date Data Source UNK Name Value Range Interpretation Code Description Data Source(s) Body mass index 24.06 kg/m2 24.06 kg/m2 [facility] [employer] (BMI) [Ratio] - [facility] Body weight 72 kg 72 kg [facility] Measured [facility] Body height 173 cm 173 cm [facility] Body mass index 24.06 kg/m2 24.06 kg/m2 [facility] Health (BMI) [Ratio] [facility] Oxygen saturation 96 % 94-100 % Normal (applies to 96 % [facility] Health in Blood non-numeric results) - [facility] Postductal by [place] Pulse oximetry Medical Ce nter Oxygen therapy [facility] alth [Minimum Data - [place] Set] [facility] Diastolic blood 82 mm[Hg] 60-90 mmHg Normal (applies to 82 mm[Hg] N [facility] Health pressure non-numeric results) - [facility] Systolic blood 118 mm[Hg] 90-130 mmHg Normal (applies to 118 mm[Hg] N [facility] Health pressure non-numeric results) - [facility] Respiratory rate 18 br/min 14-20 Normal (applies to 18 br/min [facility] Health br/min non-numeric results) - [facility] Heart rate 79 bpm 60-100 bpm Normal (applies to 79 bpm [facility] Health non-numeric results) - [facility] Oral temperature 97.7 [degF] 96.4-99.1 Normal (applies to 97.7 [degF ] [facility] DegF non-numeric results) - [facility] Oral temperature 98.2 [degF] 96.4-99.1 Normal (applies to 98.2 [degF ] [facility] DegF non-numeric results) - [facility] Oxygen saturation 96 % 94-100 % Normal (applies to 96 % [facility] [employer] in Blood non-numeric results) - [facility] Postductal by [place] Pulse oximetry Medical nter Heart rate 46 bpm 60-100 bpm 46 bpm [facility] - [facility] Mean blood 88 mm[Hg] 88 mm[Hg] [facility] Health pressure by - [place] Noninvasive [facility] Diastolic blood 75 mm[Hg] 60-90 mmHg Normal (applies to 75 mm[Hg] N [facility] Health pressure non-numeric results) - [facility] Systolic blood 115 mm[Hg] 90-130 mmHg Normal (applies to 115 mm[Hg] N [facility] Health pressure non-numeric results) - [facility] Oral temperature 98 [degF] 96.4-99.1 Normal (applies to 98 [degF] [facility] DegF non-numeric results) - [facility] Oxygen saturation 93 % 94-100 % Below low normal 93 % N [facility] in Blood - [place] Postductal by [place] Pulse oximetry Medical Ce nter Heart rate 47 bpm 60-100 bpm 47 bpm [facility] - [facility] Mean blood 86 mm[Hg] 86 mm[Hg] [facility] Health pressure by - [facility] Diastolic blood 76 mm[Hg] 60-90 mmHg Normal (applies to 76 mm[Hg] N [facility] pressure non-numeric results) - [facility] Systolic blood 107 mm[Hg] 90-130 mmHg Normal (applies to 107 mm[Hg] [facility] non-numeric results) - [facility] Respiratory rate 18 br/min 14-20 Normal (applies to 18 br/min [facility] br/min non-numeric results) - [facility] Oral temperature 97.7 [degF] 96.4-99.1 Normal (applies to 97.7 [degF ] [facility] DegF non-numeric results) - [facility] Oxygen saturation 95 % 94-100 % Normal (applies to 95 % [facility] in Blood non-numeric results) - [facility] Postductal by [place] Pulse oximetry Medical Ce nter Heart rate 42 bpm 60-100 bpm 42 bpm [facility] - [facility] Mean blood 73 mm[Hg] 73 mm[Hg] [facility] pressure by - [facility] Diastolic blood 59 mm[Hg] 60-90 mmHg Below low normal 59 mm[Hg] [facility] - [facility] Systolic blood 101 mm[Hg] 90-130 mmHg Normal (applies to 101 mm[Hg] N [facility] pressure non-numeric results) - [facility] Oxygen therapy [facility] He alth [Minimum Data - [place] Set] [facility] Respiratory rate 17 br/min 14-20 Normal (applies to 17 br/min [facility] br/min non-numeric results) - [facility] Blood pressure [facility] - [facility] Oxygen therapy Numarivelce He alth [Minimum Data - [place] Set] [facility] Respiratory rate 20 br/min 14-20 Normal (applies to 20 br/min [facility] br/min non-numeric results) - [facility] Oxygen therapy [place] alth [Minimum Data - [facility]] [facility] Inhaled oxygen 2 L/min 2 L/min Num[facility] He alth flow rate - [facility] Oxygen Therapy [facility] He alth Activity - [facility] Inhaled oxygen 2 L/min 2 L/min [facility] He alth flow rate - [facility] Oxygen Therapy [facility] He alth Activity - [facility] Axillary 98.5 [degF] 95.3-99 Normal (applies to 98.5 [degF] [facility] temperature DegF non-numeric results) - [facility] Oxygen Therapy [place] [facility] Activity - [facility] Inhaled oxygen 2 L/min 2 L/min [facility] Shakeel alth flow rate - [facility] Glucose 222 mg/dL 65-100 Above high normal 222 mg/dL [facility] [Moles/volume] in mg/dL - [facility] Capillary blood [place] by Glucometer [facility] ter Body mass index 25.95 kg/m2 25.95 kg/m2 [facility] (BMI) [Ratio] - [facility] Body weight 75 kg 75 kg [facility] Measured - [facility] Body height 170 cm 170 cm [facility] - [facility] Body mass index 25.95 kg/m2 25.95 kg/m2 [facility] (BMI) [Ratio] - [facility] Oxygen saturation 99 % 99 % The Ins titute in Arterial blood For Fam dru by Pulse oximetry [facility] Body mass index 28.40 kg/m2 28.40 kg/m2 The Ins [facility] (BMI) [Ratio] For [facility] Body weight 81.647 kg 81.647 kg [facility] [place] Measured For [facility] Body height 169.5 cm 169.5 cm The [facility] Respiratory rate 16 /min 16 /min The Inst itute For [facility] Body temperature 36.56 Jaye 36.56 Jaye The Inst itute For [facility] Heart rate 60 /min 60 /min [facility] [place] [facility] Diastolic blood 68 mm[Hg] 68 mm[Hg] The Insti tute pressure For Family Health Systolic blood 90 mm[Hg] 90 mm[Hg] The [facility] [place] pressure For Family Health Oxygen saturation 97 % 97 % The Ins tit[facility] in Arterial blood For Fam dru by Pulse oximetry [facility] Body mass index 27.93 kg/m2 27.93 kg/m2 The Ins tit[facility] (BMI) [Ratio] For Family Health Body weight 80.287 kg 80.287 kg [facility] [place] Measured For [facility] Body height 169.5 cm 169.5 cm [facility] [place] For [facility] Respiratory rate 16 /min 16 /min The [facility] For [facility] Body temperature 36.22 Jaye 36.22 Jaye The [facility] For [facility] Heart rate 86 /min 86 /min [facility] [place] For [facility] Diastolic blood 70 mm[Hg] 70 mm[Hg] The Insti tute pressure For Family Health Systolic blood 100 mm[Hg] 100 mm[Hg] The [facility] [place] [facility] [place] pressure For [facility] Body mass index 27.09 kg/m2 27.09 kg/m2 The Ins tit[facility] (BMI) [Ratio] For Family Health Body weight 77.384 kg 77.384 kg [facility] [place] Measured For [facility] Body height 169 cm 169 cm [facility] [place] For [facility] Respiratory rate 18 /min 18 /min The Inst itute For [facility] Heart rate 64 /min 64 /min [facility] [place] For [facility] Diastolic blood 60 mm[Hg] 60 mm[Hg] The Insti tute pressure For Family Health Systolic blood 90 mm[Hg] 90 mm[Hg] The [facility] [place] [facility] [place] pressure For [facility] Oxygen saturation 99 % 99 % The Ins titute in Arterial blood For Fam dru by Pulse oximetry [facility] Body mass index 26.04 kg/m2 26.04 kg/m2 The Ins tit[facility] (BMI) [Ratio] For Family Health Body weight 74.844 kg 74.844 kg [facility] [place] Measured For [facility] Body height 169.5 cm 169.5 cm [facility] [place] For [facility] Respiratory rate 16 /min 16 /min The Inst itute For [facility] Body temperature 36.67 Jaye 36.67 Jaye The Inst [facility] For [facility] Heart rate 68 /min 68 /min [facility] [place] For [facility] Diastolic blood 76 mm[Hg] 76 mm[Hg] The Insti tute pressure For Family Health Systolic blood 110 mm[Hg] 110 mm[Hg] The [facility] [place] [facility] [place] pressure For Family [facility] Oxygen saturation 97 % 97 % The Ins titute in Arterial blood For Jacob gonsales by Pulse oximetry Health Body mass index 26.01 kg/m2 26.01 kg/m2 The Ins tit[facility] (BMI) [Ratio] For [facility] Body weight 74.753 kg 74.753 kg [facility] [place] Measured For [facility] Body height 169.5 cm 169.5 cm The [facility] Respiratory rate 18 /min 18 /min The Inst itute For [facility] Body temperature 36.56 Jaye 36.56 Jaye The Inst itute For [facility] Heart rate 69 /min 69 /min The [facility] Diastolic blood 78 mm[Hg] 78 mm[Hg] The Insti tute pressure For [facility] Systolic blood 104 mm[Hg] 104 mm[Hg] The [facility] [place] pressure [facility] Patient Treatment Plan of Care Planned Activity Planned Date Details Description Data Source (s) No data available for this [facility] No data available for this [facility] No data available for this [facility] No data available for this [facility] No data available for this [facility] No data available for this [facility] No data available for this [facility] No data available for this [facility] doxycycline hyclate 100 MG 04/01/2019 [facility] - Oral Capsule 08:38:00 AM [facility] Doxycycline Monohydrate 100 04/01/2019 [place] [facility] - MG Oral Capsule 08:38:00 AM [facility] Ibuprofen 800 MG Oral 03/28/2019 [facility] - Tablet 04:58:00 PM [facility] Escitalopram 20 MG Oral 03/28/2019 [facility] - Tablet 04:58:00 PM [facility] gabapentin 300 MG Oral 03/28/2019 [facility] - Capsule 04:58:00 PM [facility] albuterol Inhaler 03/28/2019 [place] [facility] - 04:58:00 PM [facility] gabapentin 300 MG Oral 01/14/2019 [facility] For Capsule 12:00:00 AM [facility]T [facility] Escitalopram 20 MG Oral 01/14/2019 [facility] [place] For Tablet 12:00:00 AM EDT [facility] Mirtazapine 15 MG Oral 11/25/2018 [facility] For Tablet 12:00:00 AM EDT [facility] gabapentin 300 MG Oral 11/25/2018 [facility] For Capsule 12:00:00 AM EDT [facility] Escitalopram 20 MG Oral 11/25/2018 [facility] [place] For Tablet 12:00:00 AM EDT [facility] Escitalopram 20 MG Oral 11/12/2018 [facility] [place] For Table[facility] 12:00:[facility] Oral 10/14/2018 [facility] For Capsule 12:00:00 [facility] 10/14/2018 The Instit[facility] e For Hydrochloride 25 MG Oral 12:00:00 AM [facility] Tablet Escitalopram 20 MG Oral 10/14/2018 [facility] [place] For Tablet 12:00:00 AM EDT [facility] Escitalopram 20 MG Oral 09/30/2018 [facility] [place] For Tablet 12:00:00 [facility] MG Oral 09/26/2018 [facility] For Tablet 12:00:00 [facility] MG Oral 09/26/2018 The [facility] For Capsule 12:00:00 AM EDT [facility] gabapentin 300 MG Oral 08/29/2018 The [facility] For Capsule 12:00:00 [facility] MG / 08/19/2018 e [place] For Trimethoprim 160 MG Oral 12:00:00 AM [facility] Tablet [Bactrim] Ibuprofen 600 MG Oral 08/12/2018 The In stitute For Tablet 12:00:00 [facility] Esc[facility] 20 MG Oral 08/06/2018 [facility] [place] For Tablet 12:00:00 AM EDT [facility] Mirtazapine 15 MG Oral 08/06/2018 The [facility] For Tablet 12:00:00 [facility] MG Oral 08/06/2018 The I [facility] For Capsule 12:00:00 AM EDT [facility] Mirtazapine 15 MG Oral 07/10/2018 The [facility]stitute For Tablet 12:00:00 AM EDT [facility] Escitalopram 20 MG Oral 07/10/2018 [facility] [place] For Tablet 12:00:00 AM EDT [facility] Sertraline 25 MG Oral 05/04/2015 The In stitute For Tablet 12:00:00 AM EST [facility] Diphenhydramine 05/04/2015 The Instit[facility] e For Hydrochloride 25 MG Oral 12:00:00 AM [facility] Tablet Prazosin 2 MG Oral Capsule 05/04/2015 [facility] [place] For 12:00:00 AM EST [facility] gabapentin 600 MG Oral 05/04/2015 The I [facility]stitute For Tablet 12:00:00 [facility] MG Oral 05/04/2015 The I nstitute For Tablet [Remeron] 12:00:00 AM EST [facility] gonzalez
--- NOTE | 2019-12-29 09:40 | BHS.RME ---
Substance Use & Tx History - Substance Use History Heroin Substance amount: 1-2 bundles Frequency of use: Daily Substance route: Injection (ex: intravenous or skin popping) Date of Last Use: 12/28/19 (started age 23 and overdose 6 times) Cocaine- Powder Substance amount: $70-80 Frequency of use: Daily Substance route: Smoking, Injection (ex: intravenous or skin popping) Date of Last Use: 12/28/19 (started age 23) Nicotine Substance amount: 1 pack Frequency of use: Daily Substance route: Smoking Date of Last Use: 12/29/19 (started age 16) - Last Treatment Date of last treatment: 09/04-09/10/19, 04/29-05/04/19 Treatment type: Substance Use Disorder (BOBBY) Where was last treatment: Detox (will contract to go to rehab and aftercare this time.) Physical/Psych/Mental Status - Behavior General Behavior: Increased activity (restlessness, agitation) Eye Contact: Normal - Cooperativeness Cooperativeness: Cooperative - Thinking Thought Processes: Tight, Logical, Goal Directed - Physical Health Problems Is patient presently having any pain?: No Does patient presently have any injuries (include location): No Does patient currently have a fever: No Is patient : No COWS - Scale Resting Pulse: 0= VT 80 or Below Sweatin= Beads of Sweat on Face Restless Observation: 3= Extraneous Movement Pupil Size: 2= Moderately Dilated Bone or Joint Aches: 4=Acute Joint/Muscle Pain Runny Nose/ Eye Tearin= Runny Nose/Eyes GI Upset > 30mins: 2= Nausea/Diarrhea Tremor Observation: 2= Slight Tremor Visible Yawning Observation: 1= 1-2x During Session Anxiety or Irritability: 1=Feels Anxious/Irritable Goose Flesh Skin: 3=Piloerection COWS Score: 23
--- NOTE | 2019-12-29 10:21 | HP ---
COWS - Scale Resting Pulse: 0= PA 80 or Below Sweatin= Beads of Sweat on Face Restless Observation: 3= Extraneous Movement Pupil Size: 2= Moderately Dilated Bone or Joint Aches: 4=Acute Joint/Muscle Pain Runny Nose/ Eye Tearin= Runny Nose/Eyes GI Upset > 30mins: 2= Nausea/Diarrhea Tremor Observation: 2= Slight Tremor Visible Yawning Observation: 1= 1-2x During Session Anxiety or Irritability: 1=Feels Anxious/Irritable Goose Flesh Skin: 3=Piloerection COWS Score: 23 CIWA Score - Admission Criteria OASAS Guidelines: Admission for Medically Managed Detox: Requires at least one of the followin. CIWA greater than 12 2. Seizures within the past 24 hours 3. Delirium tremens within the past 24 hours 4. Hallucinations within the past 24 hours 5. Acute intervention needed for co occurring medical disorder 6. Acute intervention needed for co occurring psychiatric disorder 7. Severe withdrawal that cannot be handled at a lower level of care (continued vomiting, continued diarrhea, abnormal vital signs) requiring intravenous medication and/or fluids 8. Admitting History and Physical - Admission History of Present Illness: Ms. Herrera is a 34 yo woman who presents to [facility] requesting detox admission for heroin use disorder. PMH: Herniated disc lumbar with residual numbness sole of left foot PSH: C section x 2, Thoracotomy due to MRSA pneumonia in 2009 Psych: borderline personality disorder, anxiety, depression, insomnia: Remerojose Lexapro SOC: lives ith mother in [place], [place] Legal: none - Substance Use History Heroin Substance amount: 1-2 bundles Frequency of use: Daily Substance route: Injection (ex: intravenous or skin popping) Date of Last Use: 12/28/19 (started age 23 and overdose 6 times), last OD one year ago Has Narcan at home Cocaine- Powder Substance amount: $70-80 Frequency of use: Daily Substance route: Smoking, Injection (ex: intravenous or skin popping) Date of Last Use: 12/28/19 (started age 23) Nicotine Substance amount: 1 pack Frequency of use: Daily Substance route: Smoking Date of Last Use: 12/29/19 (started age 16) - Last Treatment Date of last treatment: 09/04-09/10/19, 04/29-05/04/19 Treatment type: Substance Use Disorder (BOBBY) Where was last treatment: Detox (will contract to go to rehab and aftercare this time.) History Source: Patient Limitations to Obtaining History: No Limitations - Past Medical History ...LMP: 06/10/18 Psych: Yes: Depression, Other (Borderline Personality Disorder) - Past Surgical History Past Surgical History: Yes: , Thoracotomy - Smoking History Smoking history: Current every day smoker Have you smoked in the past 12 months: Yes Aproximately how many cigarettes per day: 40 - Alcohol/Substance Use Hx Alcohol Use: No History of Substance Use: reports: Cocaine, Heroin - Social History ADL: Independent Occupation: unemployed History of Recent Travel: No Admission ROS S - HPI Allergies/Adverse Reactions: Allergies Allergy/AdvReac Type Severity Reaction Status Date / Time fish derived Allergy Verified 09/05/19 09:29 levofloxacin [From Levaquin] Allergy Verified 09/05/19 09:29 fish Allergy Uncoded 09/05/19 09:29 Exam Limitations: No Limitations - Ebola screening Have you traveled outside of the country in the last 21 days: No Have you been sick,other than usual withdrawal symptoms: No Do you have a fever: No - Review of Systems Constitutional: Changes in sleep, Unintentional Wgt. Loss (30 lb weight loss in the past 2 mos, chronic insomnia) EENT: reports: No Symptoms Reported Respiratory: reports: No Symptoms reported Cardiac: reports: No Symptoms Reported GI: reports: Nausea : reports: No Symptoms Reported Musculoskeletal: reports: No Symptoms Reported Integumentary: reports: No Symptoms Reported Neuro: reports: Other (left sole numbness from herniated lumbar disc) Endocrine: reports: No Symptoms Reported Hematology: reports: No Symptoms Reported Psychiatric: reports: Anxious, Depressed Patient History - Patient Medical History Hx Anemia: No Hx Asthma: Yes Hx Chronic Obstructive Pulmonary Disease (COPD): No Hx Cancer: No Hx Cardiac Disorders: No Hx Congestive Heart Failure: No Hx Hypertension: No Hx Hypercholesterolemia: No Hx Pacemaker: No HX Cerebrovascular Accident: No Hx Seizures: No Hx Dementia: No Hx Diabetes: No Hx Gastrointestinal Disorders: No Hx Liver Disease: No Hx Genitourinary Disorders: No Hx Sexually Transmitted Disorders: No Hx Renal Disease (ESRD): No Hx Thyroid Disease: No Hx Human Immunodeficiency Virus (HIV): No (negative last 05/21 negative) Hx Hepatitis C: Yes (no treatment) Hx Depression: Yes Hx Suicide Attempt: No Hx Bipolar Disorder: No Hx Schizophrenia: No - Patient Surgical History Past Surgical History: No Hx Neurologic Surgery: No Hx Cataract Extraction: No Hx Cardiac Surgery: No Hx Lung Surgery: No Hx Breast Surgery: No Hx Breast Biopsy: No Hx Abdominal Surgery: No Hx Appendectomy: No Hx Cholecystectomy: No Hx Genitourinary Surgery: No Hx Section: Yes (x 4,last 10 years) Hx Orthopedic Surgery: No Other Surgical History: 4 C section, mrsa 2012, right lung sx,- thoracotomy 2009 Anesthesia Reaction: No - PPD History Date: 05/08/18 Results: 0mm - Reproductive History Last Menstrual Period: 06/10/18 - Smoking Cessation Smoking history: Current every day smoker Have you smoked in the past 12 months: Yes Aproximately how many cigarettes per day: 20 Hx Chewing Tobacco Use: No Initiated information on smoking cessation: Yes 'Breaking Loose' booklet given: 12/29/19 Admission Physical Exam [facility] - Physical General Appearance: Yes: No Apparent Distress, Nourished, Appropriately Dressed HEENTM: Yes: EOMI, Hearing grossly Normal, Normocephalic, Normal Voice Respiratory: Yes: Lungs Clear, No Respiratory Distress, No Accessory Muscle Use Neck: Yes: Within Normal Limits, Supple Breast: Yes: Breast Exam Deferred Cardiology: Yes: Regular Rhythm, Regular Rate Abdominal: Yes: Normal Bowel Sounds, Non Tender, Flat, Soft Genitourinary: Yes: Other (deferred) Back: Yes: Normal Inspection Musculoskeletal: Yes: full range of Motion Extremities: Yes: Normal Inspection, Non-Tender Neurological: Yes: Alert, Normal Response Integumentary: Yes: Track Benson (no signs of infection) - Diagnostic (1) Cocaine dependence Current Visit: Yes Status: Acute Qualifiers: Substance use status: uncomplicated (2) Depression Current Visit: Yes Status: Chronic (3) Opioid dependence with withdrawal Current Visit: Yes Status: Acute Comment: 1. Admit detox 2. Methadone protocol 3. routine labs 4. comfort medications (4) Nicotine dependence Current Visit: Yes Status: Chronic Qualifiers: Nicotine product type: cigarettes Substance use status: uncomplicated Qualified Code(s): F17.210 - Nicotine dependence, cigarettes, uncomplicated Cleared for Admission [facility] - Detox or Rehab [facility] Level of Care: Medically Managed Detox Regimen/Protocol: Methadone Breathalyzer - Breathalyzer Breathalyzer: 0 Urine Drug Screen - Test Device Lot number: [id number] Expiration date: 07/08/21 - Control Is test valid?: Yes - Results Drug screen NEGATIVE: No Urine drug screen results: PRESTON-Cocaine, FEN-Fentanyl, MOP-Opiates Inpatient Rehab Admission - Rehab Decision to Admit Inpatient rehab admission?: No
[2019-12-29] MEDS ORDERED: MENTHOL/PHENOL 1 EACH UD MM PRN (10:22)
[2019-12-29] MEDS ORDERED: MAG HYDROX/AL HYDROX/SIMETH 30 ML UNIT-DOSE CUP PO PRN (10:22)
[2019-12-29] MEDS ORDERED: ACETAMINOPHEN 325 MG TABLET (FP) PO PRN ×2 (10:22)
[2019-12-29] MEDS ORDERED: MAGNESIUM HYDROX 2400MG/30ML ORAL SUSPENSION 30 ML CUP PO PRN (10:22)
[2019-12-29] MEDS ORDERED: METHADONE HCL 10 MG TABLET (FOR DETOX USE ONLY) PO ONE (10:22)
[2019-12-29] MEDS ORDERED: NICOTINE POLACRILEX 2 MG GUM BUC PRN (10:22)
[2019-12-29] MEDS ORDERED: cloNIDine HCL 0.1 MG TABLET PO PRN (10:22)
[2019-12-29] MEDS ORDERED: MAGNESIUM CITRATE 300 ML BOTTLE PO PRN (10:22)
[2019-12-29] MEDS ORDERED: BISMUTH SUBSALICYLATE 262 MG/15 ML BTL PO PRN (10:22)
[2019-12-29] MEDS ORDERED: IBUPROFEN 400 MG TABLET (FP) PO PRN (10:22)
[2019-12-29] MEDS ORDERED: ALBUTEROL SO4 HFA INHALER IH PRN (10:25)
[2019-12-29 10:59] VITALS: BMI 22.3
[2019-12-29] MEDS: BUDESONIDE/FORMETEROL FUMARATE 80/4.5 mcg INHALER IH SCH ×2 (11:51→23:21)
[2019-12-29 13:23] LABS: HEMATOCRIT 37.5 % (32.4-45.2); HEMOGLOBIN 12.3 GM/dL (10.7-15.3); MCH 27.7 pg (25.7-33.7); MCHC 32.8 g/dl (32.0-36.0); MEAN CELL VOLUME 84.3 fl (80-96); PLATELET COUNT 229 K/MM3 (134-434); RBC 4.44 M/mm3 (3.60-5.2); RDW 15.3 % (11.6-15.6); WHITE BLOOD COUNT 4.9 K/mm3 (4.0-10.0)
[2019-12-29] MEDS: hydrOXYzine PAMOATE 25 MG CAPSULE (FP) PO SCH ×3 (13:30→23:21)
[2019-12-29 13:43] LABS: ALBUMIN 3.7 g/dl (3.4-5.0); BLOOD UREA NITROGEN 8.7 mg/dL (7-18); CREATININE 0.8 mg/dL (0.55-1.3)
[2019-12-29 13:44] LABS: BILIRUBIN,TOTAL 0.4 mg/dL (0.2-1); TOT PROT 7.6 g/dl (6.4-8.2)
[2019-12-29] MEDS: NICOTINE 21 MG/24 HOURS TOPICAL PATCH TD SCH (15:03)
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
[2019-12-29] MEDS: ONDANSETRON *ODT* 4 MG TABLET SL PRN (17:33)
[2019-12-29] MEDS: METHOCARBAMOL 500 MG TABLET PO PRN (17:33)
[2019-12-29] MEDS ORDERED: THIAMINE HCL 100 MG TABLET (FP) PO SCH (22:00)
[2019-12-29] MEDS ORDERED: MELATONIN 5 MG TABLETS PO SCH (22:00)
[2019-12-29] MEDS ORDERED: MIRTAZAPINE 15 MG TABLET (FP) PO SCH (22:00)
[2019-12-30] MEDS: hydrOXYzine PAMOATE 25 MG CAPSULE (FP) PO SCH ×2 (06:03→10:47)
[2019-12-30] MEDS: METHOCARBAMOL 500 MG TABLET PO PRN (06:05)
[2019-12-30] MEDS: ONDANSETRON *ODT* 4 MG TABLET SL PRN (06:06)
[2019-12-30 09:08] VITALS: BP 101/63; PULSE 65; TEMP 97.1
[2019-12-30] MEDS ORDERED: METHADONE HCL 5 MG TABLET (FOR DETOX USE ONLY) ONE (09:28)
[2019-12-30] MEDS ORDERED: METHADONE HCL 10 MG TABLET (FOR DETOX USE ONLY) ONE (09:28)
[2019-12-30] MEDS ORDERED: METHADONE (DETOX) 20 MG, METHADONE (DETOX) 5 MG PO ONE (10:00)
[2019-12-30] MEDS ORDERED: NICOTINE 7 MG/24 HOURS TOPICAL PATCH TD SCH (10:00)
[2019-12-30] MEDS ORDERED: PRENATAL VITAMINS W/ FOLIC ACID TABLET (FP) PO SCH (10:00)
[2019-12-30] MEDS: NICOTINE 21 MG/24 HOURS TOPICAL PATCH TD SCH (10:47)
[2019-12-30] MEDS: BUDESONIDE/FORMETEROL FUMARATE 80/4.5 mcg INHALER IH SCH (10:47)
--- NOTE | 2019-12-30 10:53 | PN ---
S COWS - Scale Resting Pulse: 0= NC 80 or Below Sweatin= No chills or Flushing Restless Observation: 0= Sits Still Pupil Size: 0= Normal to Room Light Bone or Joint Aches: 2= Severe Diffuse Aches Runny Nose/ Eye Tearin= Runny Nose/Eyes GI Upset > 30mins: 2= Nausea/Diarrhea Tremor Observation of Outstretched Hands: 2= Slight Tremor Visible Yawning Observation: 1= 1-2x During Session Anxiety or Irritability: 2=Irritable/Anxious Goose Flesh Skin: 0=Smooth Skin COWS Score: 11 [facility] Progress Note (SOAP) Subjective: alert,irritable,anxious,interrupted sleep,tremor,pain in the body and back,achin g pain Objective: 12/30/19 12:58 Vital Signs Temperature 97.1 F L 12/30/19 08:59 Pulse Rate 65 12/30/19 08:59 Respiratory Rate 18 12/30/19 08:59 Blood Pressure 101/63 12/30/19 08:59 O2 Sat by Pulse Oximetry (%) 98 12/29/19 20:59 Laboratory Last Values WBC 4.9 K/mm3 (4.0-10.0) 12/29/19 10:15 RBC 4.44 M/mm3 (3.60-5.2) 12/29/19 10:15 Hgb 12.3 GM/dL (10.7-15.3) 12/29/19 10:15 Hct 37.5 % (32.4-45.2) 12/29/19 10:15 MCV 84.3 fl (80-96) 12/29/19 10:15 MCH 27.7 pg (25.7-33.7) 12/29/19 10:15 MCHC 32.8 g/dl (32.0-36.0) 12/29/19 10:15 RDW 15.3 % (11.6-15.6) 12/29/19 10:15 Plt Count 229 K/MM3 (134-434) 12/29/19 10:15 MPV 8.0 fl (7.5-11.1) 12/29/19 10:15 Sodium 139 mmol/L (136-145) 12/29/19 10:15 Potassium 4.0 mmol/L (3.5-5.1) 12/29/19 10:15 Chloride 104 mmol/L (98-107) 12/29/19 10:15 Carbon Dioxide 27 mmol/L (21-32) 12/29/19 10:15 Anion Gap 8 MMOL/L (8-16) 12/29/19 10:15 BUN 8.7 mg/dL (7-18) 12/29/19 10:15 Creatinine 0.8 mg/dL (0.55-1.3) 12/29/19 10:15 Est GFR (CKD-EPI)AfAm 109.93 12/29/19 10:15 Est GFR (CKD-EPI)NonAf 94.85 12/29/19 10:15 Random Glucose 83 mg/dL (74-106) 12/29/19 10:15 Calcium 9.0 mg/dL (8.5-10.1) 12/29/19 10:15 Total Bilirubin 0.4 mg/dL (0.2-1) 12/29/19 10:15 AST 11 U/L (15-37) L 12/29/19 10:15 ALT 15 U/L (13-61) 12/29/19 10:15 Alkaline Phosphatase 61 U/L (45-117) 12/29/19 10:15 Total Protein 7.6 g/dl (6.4-8.2) 12/29/19 10:15 Albumin 3.7 g/dl (3.4-5.0) 12/29/19 10:15 Syphilis Serology Non-reactive (NONREACTIVE) 12/29/19 10:15 Assessment: 12/30/19 12:58 withdrawal symptom Plan: continue detox methadone regimen
--- NOTE | 2019-12-30 13:00 | DS ---
[facility] Detox Discharge Summary Admission Date: 12/29/19 Discharge Date: 12/30/19 - History Present History: Opioid Dependence Additional Comments: alert,oriented x3 ambulation on the unit lung clear on auscultation bilaterally no edema of legs patient did not want to complete treatment,explained to patient for the risk of relapsing is high,all attempts to convince patient to stay with no avail,patient signed release ama,the risk of leaving the facility,including seizure,permanent disability and explained,patient under stood Pertinent Past History: asthma hepatitis c history of right thoracotomy ptsd - Physical Exam Results Vital Signs: Vital Signs Temperature 97.1 F L 12/30/19 08:59 Pulse Rate 65 12/30/19 08:59 Respiratory Rate 18 12/30/19 08:59 Blood Pressure 101/63 12/30/19 08:59 O2 Sat by Pulse Oximetry (%) 98 12/29/19 20:59 Pertinent Admission Physical Exam Findings: withdrawal signs and symptom Laboratory Last Values WBC 4.9 K/mm3 (4.0-10.0) 12/29/19 10:15 RBC 4.44 M/mm3 (3.60-5.2) 12/29/19 10:15 Hgb 12.3 GM/dL (10.7-15.3) 12/29/19 10:15 Hct 37.5 % (32.4-45.2) 12/29/19 10:15 MCV 84.3 fl (80-96) 12/29/19 10:15 MCH 27.7 pg (25.7-33.7) 12/29/19 10:15 MCHC 32.8 g/dl (32.0-36.0) 12/29/19 10:15 RDW 15.3 % (11.6-15.6) 12/29/19 10:15 Plt Count 229 K/MM3 (134-434) 12/29/19 10:15 MPV 8.0 fl (7.5-11.1) 12/29/19 10:15 Sodium 139 mmol/L (136-145) 12/29/19 10:15 Potassium 4.0 mmol/L (3.5-5.1) 12/29/19 10:15 Chloride 104 mmol/L (98-107) 12/29/19 10:15 Carbon Dioxide 27 mmol/L (21-32) 12/29/19 10:15 Anion Gap 8 MMOL/L (8-16) 12/29/19 10:15 BUN 8.7 mg/dL (7-18) 12/29/19 10:15 Creatinine 0.8 mg/dL (0.55-1.3) 12/29/19 10:15 Est GFR (CKD-EPI)AfAm 109.93 12/29/19 10:15 Est GFR (CKD-EPI)NonAf 94.85 12/29/19 10:15 Random Glucose 83 mg/dL (74-106) 12/29/19 10:15 Calcium 9.0 mg/dL (8.5-10.1) 12/29/19 10:15 Total Bilirubin 0.4 mg/dL (0.2-1) 12/29/19 10:15 AST 11 U/L (15-37) L 12/29/19 10:15 ALT 15 U/L (13-61) 12/29/19 10:15 Alkaline Phosphatase 61 U/L (45-117) 12/29/19 10:15 Total Protein 7.6 g/dl (6.4-8.2) 12/29/19 10:15 Albumin 3.7 g/dl (3.4-5.0) 12/29/19 10:15 Syphilis Serology Non-reactive (NONREACTIVE) 12/29/19 10:15 Vital Signs Temperature 97.1 F L 12/30/19 08:59 Pulse Rate 65 12/30/19 08:59 Respiratory Rate 18 12/30/19 08:59 Blood Pressure 101/63 12/30/19 08:59 O2 Sat by Pulse Oximetry (%) 98 12/29/19 20:59 - Medication Discharge Medications: Ambulatory Orders Albuterol Sulfate Inhaler - [Ventolin HFA Inhaler -] 2 puff IH Q4H PRN #1 inhaler 09/09/19 Budesonide/Formeterol Fumarate [SYMBICORT 80/4.5mcg -] 2 puff IH BID 30 Days #1 inhaler 09/09/19 Escitalopram Oxalate [Lexapro -] 20 mg PO DAILY #30 tablet 09/10/19 Gabapentin 600 mg PO BID #60 tablet 09/10/19 Mirtazapine [Remeron -] 45 mg PO HS #90 tablet 09/10/19 Prazosin HCl [Minipress] 2 mg PO HS #30 capsule 09/10/19 - Diagnosis (1) Opioid dependence with withdrawal Status: Acute (2) Bronchial asthma Status: Chronic (3) Cocaine dependence Status: Chronic Qualifiers: Substance use status: uncomplicated Qualified Code(s): F14.20 - Cocaine dependence, uncomplicated (4) Hepatitis C Status: Chronic Qualifiers: Viral hepatitis chronicity: chronic Hepatic coma status: without hepatic coma Qualified Code(s): B18.2 - Chronic viral hepatitis C (5) History of thoracotomy Status: Chronic (6) Nicotine dependence Status: Chronic Qualifiers: Nicotine product type: cigarettes Substance use status: uncomplicated Qualified Code(s): F17.210 - Nicotine dependence, cigarettes, uncomplicated (7) PTSD (post-traumatic stress disorder) Status: Chronic - AMA Did Patient Leave Against Medical Advice: Yes
[2019-12-31] MEDS ORDERED: METHADONE HCL 10 MG TABLET (FOR DETOX USE ONLY) PO ONE (10:00)
[2020-01-01] MEDS ORDERED: METHADONE (DETOX) 10 MG, METHADONE (DETOX) 5 MG PO ONE (10:00)
[2020-01-02] MEDS ORDERED: METHADONE HCL 10 MG TABLET (FOR DETOX USE ONLY) PO ONE (10:00)
[2020-01-03] MEDS ORDERED: METHADONE HCL 5 MG TABLET (FOR DETOX USE ONLY) PO ONE (06:00)
== END 2019-12-30 11:30 | disposition left against medical advice (07) | DRG 770 ==
LOC: YASAS 09:28 → Y3N 10:56
PROVIDERS: ADMIT Allergy & Immunology; ATTEND Allergy & Immunology
PROC: HZ2ZZZZ Detoxification Services for Substance Abuse Treatment (ICD-10-PCS; principal; 2019-12-29)
DX: F11.23 Opioid dependence with withdrawal (principal); F14.20 Cocaine dependence, uncomplicated; F17.210 Nicotine dependence, cigarettes, uncomplicated; F43.10 Post-traumatic stress disorder, unspecified; F19.24 Other psychoactive substance dependence with psychoactive substance-induced mood disorder; F60.3 Borderline personality disorder; G47.00 Insomnia, unspecified; J45.909 Unspecified asthma, uncomplicated; Z62.810 Personal history of physical and sexual abuse in childhood; R63.4 Abnormal weight loss; Z68.22 Body mass index [BMI] 22.0-22.9, adult; Z91.410 Personal history of adult physical and sexual abuse; Z88.1 Allergy status to other antibiotic agents; Z91.013 Allergy to seafood; Z56.0 Unemployment, unspecified
CPT/HCPCS: 36415; 80053; 81025; 85027; 86780; Q0162; U0003